=== PATIENT | male | born 1940 | race Caucasian/White ===

== ENCOUNTER 2016-11-08 14:03 | Emergency (ER) | payer MEDICARE, OTHER ==
[2016-11-08] MEDS ORDERED: SODIUM CHLORIDE 0.9% 500 ML IV STA (14:54)
[2016-11-08] MEDS ORDERED: SODIUM CHLORIDE 0.9% 1,000 ML IV STA (14:54)
[2016-11-08] MEDS ORDERED: PANTOPRAZOLE 40 MG/10 ML VIAL IVP STA (14:54)
[2016-11-08 15:24] VITALS: PULSE 69
[2016-11-08 15:27] LABS: Basophils % (A) 1 %; CH 30.2; CHCM 33.5; Eosinophils # (A) 0.4 k/uL (0-0.7); Eosinophils % (A) 5 %; HCT 32.8 % (39.0-53.0); HDW 3.06; HGB 11.1 gm/dL (13.0-17.5); Luc # (Auto) 0.19; Luc % (Auto) 3; Lymphocytes # (A) 1.3 k/uL (1.0-4.8); Lymphocytes % (A) 20 %; MCH 30.8 pg (25.0-35.0); MCHC 33.9 g/dL (31.0-37.0); MCV 90.7 fL (80.0-100.0); Mean Platelet Volume 6.4; Monocytes # (A) 0.6 k/uL (0-1.0); Monocytes % (A) 8 %; Neutrophils # (A) 4.3 k/uL (1.3-7.7); Neutrophils % (A) 64 %; RBC 3.62 m/uL (4.30-5.90); WBC 6.8 k/uL (3.8-10.6)
--- NOTE | 2016-11-08 15:31 | ED ---
General Adult HPI - General Chief complaint: Recheck/Abnormal Lab/Rx Stated complaint: [facility] sent because of blood work Time Seen by Provider: 11/08/16 14:43 Source: patient Mode of arrival: wheelchair Limitations: no limitations - History of Present Illness Initial comments: This 76-year-old white male since complaining of feeling dizzy and lightheaded. He states that this is been going on for the past couple of weeks. He was seen at the [facility] clinic one week ago and had blood work drawn. They called him today and told him to come to the emergency department because his hemoglobin was low. His hemoglobin apparently was 10.9. He states that he feels better today and it seems to be intermittent. It seemed worse 2 days ago. It seems to occur more with standing. He's felt presyncopal at times but did not have a syncopal episode. He denies any gross blood in his stools but has had dark stools upon wiping for the last 1 month. He was diagnosed with a right leg DVT approximately one month ago and was placed on L quests at that time. He also takes Plavix daily. He denies any chest pain or shortness of breath. He denies any other complaints or modifying factors. He states that he did have some left knee surgery in June 2016. He does have a history of coronary artery disease and previous CABG. No other complaints or modifying factors. - Related Data Home Medications Medication Instructions Recorded Confirmed Apixaban [Eliquis] 5 mg PO BID 11/08/16 11/08/16 Artificial Tears-Hypromellose 1 drops BOTH EYES QID PRN 11/08/16 11/08/16 [Artificial Tear Drops] Aspirin [Adult Low Dose Aspirin EC] 81 mg PO DAILY 11/08/16 11/08/16 Clopidogrel [Plavix] 75 mg PO DAILY 11/08/16 11/08/16 Digoxin [Lanoxin] 125 mcg PO DAILY 11/08/16 11/08/16 Furosemide [Lasix] 40 mg PO HS 11/08/16 11/08/16 Furosemide [Lasix] 80 mg PO QAM 11/08/16 11/08/16 Gabapentin [Neurontin] 300 mg PO TID 11/08/16 11/08/16 HYDROcodone/APAP 7.5-325MG [[place] 1 tab PO BID PRN 11/08/16 11/08/16 7.5-325] Isosorbide Dinitrate [Isordil] 80 mg PO BID 11/08/16 11/08/16 Losartan [Cozaar] 50 mg PO BID 11/08/16 11/08/16 Metoprolol Tartrate [Lopressor] 25 mg PO TID 11/08/16 11/08/16 Nitroglycerin Sl Tabs [Nitrostat] 0.4 mg SUBLINGUAL Q5M PRN 11/08/16 11/08/16 PARoxetine HCL [Paxil] 40 mg PO DAILY 11/08/16 11/08/16 Pantoprazole [Protonix] 40 mg PO AC-BRKFST 11/08/16 11/08/16 Rosuvastatin Calcium [Crestor] 40 mg PO HS 11/08/16 11/08/16 amLODIPine [Norvasc] 2.5 mg PO BID 11/08/16 11/08/16 Allergies Allergy/AdvReac Type Severity Reaction Status Date / Time iodine Allergy Rash/Hives Verified 11/08/16 15:28 lisinopril Allergy Unknown Verified 11/08/16 15:28 Penicillins Allergy Rash/Hives Verified 11/08/16 15:28 Review of Systems ROS Statement: Those systems with pertinent positive or pertinent negative responses have been documented in the HPI. ROS Other: All systems not noted in ROS Statement are negative. Past Medical History Past Medical History: Coronary Artery Disease (CAD), Hyperlipidemia, Hypertension History of Any Multi-Drug Resistant Organisms: None Reported Past Surgical History: Coronary Bypass/CABG, Heart Catheterization, Heart Catheterization With Stent Past Psychological History: No Psychological Hx Reported Smoking Status: Never smoker Past Alcohol Use History: None Reported Past Drug Use History: None Reported General Exam - General Exam Comments Initial Comments: GENERAL: The patient is well nourished and well hydrated. VITAL SIGNS: Heart rate, blood pressure, respiratory rate reviewed as recorded in nurse's notes. EYES: Pupils are round and reactive. Extraocular movements are intact. No conjunctival / lid redness or swelling. ENT: No external evidence of injury, swelling, or ecchymosis. Airway is patent. Throat is clear. NECK: Nontender. No swelling or evidence of injury. No subcutaneous emphysema. Trachea is midline. No thyroid mass. HEART: Regular rate and rhythm. Good peripheral pulses. LUNGS/CHEST: Breath sounds clear and equal bilaterally. No rales, rhonchi, or wheezes. No ecchymosis, subcutaneous emphysema, or tenderness. ABDOMEN: Abdomen soft without tenderness. No palpable masses or organomegaly. No peritoneal signs. No abdominal wall swelling or ecchymosis. EXTREMITIES: No extremity tenderness. Normal muscle tone and function. No thoracolumbar tenderness. NEUROLOGIC: Sensation is grossly intact. Cranial nerve exam reveals face is symmetrical, tongue is midline, speech is clear. SKIN: No abrasions or ecchymosis is noted. No induration or masses noted. PSYCHIATRIC: Alert and oriented. Appropriate behavior and judgment. Rectal exam: No gross blood identified. No black stool noted. Good rectal tone. Limitations: no limitations Course Vital Signs 11/08/16 11/08/16 11/08/16 14:32 15:22 16:04 Temperature 97.0 F L Pulse Rate 70 69 Pulse Rate [ 69 Sitting Shotblaster] Pulse Rate [ 74 Standing Shotblaster ] Pulse Rate [ 69 Supine Shotblaster] Respiratory 20 18 Rate Blood Pressure 117/59 118/62 Blood Pressure 119/61 [Right Arm Sitting] Blood Pressure 115/61 [Right Arm Standing] Blood Pressure 114/57 [Right Arm Supine] O2 Sat by Pulse 96 93 L Oximetry Medical Decision Making - Medical Decision Making The patient was seen and examined. All diagnostics were reviewed. An EKG shows an atrial paced rhythm with prolonged AV conduction with a heart rate of 70. There is no acute ST-T wave changes noted. The WV interval is 246, QRS duration is 110, and QTC intervals 419. The patient's hemoglobin is slightly low at 11.1 but stable as compared to previous blood work done one week ago that had a hemoglobin of 10.9. These results were reviewed from the [facility] fax. The remainder of laboratory is all essentially within normal limits. While it is possible that the patient had a GI bleed, it does not appear as though there is current evidence of 1. His hemoglobin is slightly low and this anemia could cause some of his symptomatology. Nevertheless, he appears quite stable for further outpatient workup. His orthostatic vital signs are normal here. His Hemoccult is negative. He does relate a lifelong history of anemia. It is felt as though he could follow up with his primary doctor and would also benefit from following up with a GI specialist. He does have a GI specialist to follow up with. 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 Return parameters are discussed. - Lab Data Result diagrams: 11/08/16 15:11 11/08/16 15:11 Lab Results 11/08/16 11/08/16 11/08/16 Range/Units 15:11 15:11 15:11 WBC 6.8 (3.8-10.6) k/uL RBC 3.62 L (4.30-5.90) m/uL Hgb 11.1 L (13.0-17.5) gm/dL Hct 32.8 L (39.0-53.0) % MCV 90.7 (80.0-100.0) fL MCH 30.8 (25.0-35.0) pg MCHC 33.9 (31.0-37.0) g/dL RDW 15.0 (11.5-15.5) % Plt Count 187 (150-450) k/uL Neutrophils % 64 % Lymphocytes % 20 % Monocytes % 8 % Eosinophils % 5 % Basophils % 1 % Neutrophils # 4.3 (1.3-7.7) k/uL Lymphocytes # 1.3 (1.0-4.8) k/uL Monocytes # 0.6 (0-1.0) k/uL Eosinophils # 0.4 (0-0.7) k/uL Basophils # 0.0 (0-0.2) k/uL PT 10.4 (9.0-12.0) sec INR 1.0 (<1.1) APTT 22.0 (22.0-30.0) sec Sodium 141 (137-145) mmol/L Potassium 4.0 (3.5-5.1) mmol/L Chloride 103 (98-107) mmol/L Carbon Dioxide 27 (22-30) mmol/L Anion Gap 11 mmol/L BUN 20 (9-20) mg/dL Creatinine 1.14 (0.66-1.25) mg/dL Est GFR (MDRD) Af Amer >60 (>60 ml/min/1.73 sqM) Est GFR (MDRD) Non-Af >60 (>60 ml/min/1.73 sqM) Glucose 116 H (74-99) mg/dL Calcium 9.0 (8.4-10.2) mg/dL Total Bilirubin 0.6 (0.2-1.3) mg/dL AST 21 (17-59) U/L ALT 21 (21-72) U/L Alkaline Phosphatase 67 (38-126) U/L Total Protein 6.8 (6.3-8.2) g/dL Albumin 4.2 (3.5-5.0) g/dL Stool Occult Blood (Negative) 11/08/16 Range/Units 15:11 WBC (3.8-10.6) k/uL RBC (4.30-5.90) m/uL Hgb (13.0-17.5) gm/dL Hct (39.0-53.0) % MCV (80.0-100.0) fL MCH (25.0-35.0) pg MCHC (31.0-37.0) g/dL RDW (11.5-15.5) % Plt Count (150-450) k/uL Neutrophils % % Lymphocytes % % Monocytes % % Eosinophils % % Basophils % % Neutrophils # (1.3-7.7) k/uL Lymphocytes # (1.0-4.8) k/uL Monocytes # (0-1.0) k/uL Eosinophils # (0-0.7) k/uL Basophils # (0-0.2) k/uL PT (9.0-12.0) sec INR (<1.1) APTT (22.0-30.0) sec Sodium (137-145) mmol/L Potassium (3.5-5.1) mmol/L Chloride (98-107) mmol/L Carbon Dioxide (22-30) mmol/L Anion Gap mmol/L BUN (9-20) mg/dL Creatinine (0.66-1.25) mg/dL Est GFR (MDRD) Af Amer (>60 ml/min/1.73 sqM) Est GFR (MDRD) Non-Af (>60 ml/min/1.73 sqM) Glucose (74-99) mg/dL Calcium (8.4-10.2) mg/dL Total Bilirubin (0.2-1.3) mg/dL AST (17-59) U/L ALT (21-72) U/L Alkaline Phosphatase (38-126) U/L Total Protein (6.3-8.2) g/dL Albumin (3.5-5.0) g/dL Stool Occult Blood Negative (Negative) Disposition Clinical Impression: Anemia, Dizziness Disposition: HOME SELF-CARE Condition: Good Instructions: Anemia (ED), Dizziness (ED) Referrals: Baldomero Zuniga DO [Primary Care Provider] - 1-2 days Time of Disposition: 16:33
[2016-11-08 15:37] LABS: Prothrombin Time 10.4 sec (9.0-12.0)
[2016-11-08 15:39] LABS: ALT 21 U/L (21-72); AST 21 U/L (17-59); Alkaline Phosphatase 67 U/L (38-126); Anion Gap 11 mmol/L; Blood Urea Nitrogen 20 mg/dL (9-20); Carbon Dioxide 27 mmol/L (22-30); Chloride 103 mmol/L (98-107); Glucose 116 mg/dL (74-99); Non-African American GFR(MDRD) >60 (>60 ml/min/1.73 sqM); Sodium 141 mmol/L (137-145); Total Bilirubin 0.6 mg/dL (0.2-1.3); Total Protein 6.8 g/dL (6.3-8.2)
[2016-11-08 17:01] VITALS: BP 123/65; RESP 16; TEMP 98
== END 2016-11-08 17:05 | disposition home or self-care (01) ==
LOC: EC 14:03
DX: D64.9 Anemia, unspecified (principal); I10 Essential (primary) hypertension; E78.5 Hyperlipidemia, unspecified; I25.10 Atherosclerotic heart disease of native coronary artery without angina pectoris; Z86.718 Personal history of other venous thrombosis and embolism; Z95.1 Presence of aortocoronary bypass graft; Z95.5 Presence of coronary angioplasty implant and graft; Z91.048 Other nonmedicinal substance allergy status; Z88.0 Allergy status to penicillin; Z88.8 Allergy status to other drugs, medicaments and biological substances; Z79.01 Long term (current) use of anticoagulants; Z79.02 Long term (current) use of antithrombotics/antiplatelets; Z79.82 Long term (current) use of aspirin; Z79.899 Other long term (current) drug therapy
CPT/HCPCS: 99284; 96374; 96361 ×2; 36415; 93005; 80053; 85025; 85610; 85730; 82272; C9113

== ENCOUNTER → 2017-02-22 | Outpatient (CLI) | payer MEDICARE ==
--- NOTE | 2017-02-22 11:20 | MM ---
Reason for exam: clinical finding. Last mammogram was performed 14 years and 10 months ago. Physical Findings: Nurse Summary: 1.5cm nodule in the left breast at nipple (nurse dw). MG Diagnostic Mammo LT w CAD CC and MLO view(s) were taken of the left breast. Finding: There is a 0.2 mm oval mass in the 11 o'clock position of the left breast. These results were verbally communicated with the patient and result sheet given to the patient on 02/22/17. ASSESSMENT: Incomplete: need additional imaging evaluation, BI-RAD 0 RECOMMENDATION: Ultrasound of the left breast.
--- NOTE | 2017-02-22 11:23 | USB ---
Reason for exam: additional evaluation requested from abnormal screening. US Breast LT Left breast ultrasound demonstrates a 21 x 11 x 33mm solid, hypoechoic lesion at the retroareolar position, gynecomastia and a 6 x 3 x 5mm oval, hyperechoic lesion at 1-2 o'clock, questionable lipoma. These results were verbally communicated with the patient and result sheet given to the patient on 02/22/17. ASSESSMENT: Probably benign, BI-RAD 3 RECOMMENDATION: Surgical consultation of the left breast. Called Dr. Zuniga with mammographic findings and has scheduled an appointment for the patient for 03/01/17 at 10:[address] Longoria. PRELIMINARY REPORT CALLED AND FAXED TO DR. LONGORIA ON 02/22/17 /TP.
== END | disposition home or self-care (01) ==
LOC: RADMAMWWP 07:11
PROVIDERS: ATTEND Family Medicine
DX: N63 Unspecified lump in breast (principal)
CPT/HCPCS: 76641; G0206

== ENCOUNTER → 2017-06-27 | Outpatient (CLI) | payer MEDICARE ==
--- NOTE | 2017-06-27 09:57 | US ---
EXAMINATION TYPE: US scrotum with doppler. DATE OF EXAM: 06/27/2017 COMPARISON: US 2011 CLINICAL HISTORY: 76-year-old male N50.8 Scrotal swelling. Intermittent right testicular swelling x 1 year, occasional left testicular pain TECHNIQUE: Grayscale and color Doppler Duplex imaging performed of the scrotum. FINDINGS: EXAM MEASUREMENTS: TESTICLES: Right Testicle: 4.5 x 3.0 x 2.7 cm for a volume of 18.8 mL with a tiny 4 mm cyst. Left Testicle: 3.2 x 2.2 x 2.7 cm for a volume of 9.8 mL with a tiny 4 mm cyst medially. While the right testicle measures larger, both show normal homogeneous echotexture and satisfactory a rterial and venous flow. EPIDIDYMIS HEAD: Right Epididymis: 1.0 x 1.5 x 1.7 cm Left Epididymis: 1.1 x 1.3 x 1.6 cm with a 1.1 cm cyst or spermatocele There is a large right and moderate-sized left hydroceles measuring up to 8 cm on the right and 5 cm on the left. Some minimal internal debris is present. No varicocele seen. IMPRESSION: 1. No sonographic evidence for testicular torsion. 2. The right testicle is relatively larger than the left but shows no evidence for mass and has max l echotexture. 3. Large right and moderate-sized left hydroceles with some minimal internal debris.
== END ==
LOC: RADUSWWP 07:01
PROVIDERS: ATTEND Urology
DX: N43.3 Hydrocele, unspecified (principal)
CPT/HCPCS: 76870; 93975

== ENCOUNTER → 2017-06-29 | Day surgery (SDC) | payer MEDICARE | LOC: RADUSWWP 10:30 | PROVIDERS: ATTEND Surgery | DX: R92.8 Other abnormal and inconclusive findings on diagnostic imaging of breast (principal); Z53.9 Procedure and treatment not carried out, unspecified reason ==

== ENCOUNTER 2017-08-11 10:30 | Emergency (ER) | payer OTHER, MEDICARE ==
[2017-08-11] MEDS ORDERED: HYDROmorphone 1 MG/ML 1 ML SYRINGE IM STA (10:59)
--- NOTE | 2017-08-11 11:03 | ED ---
Extremity Problem HPI - General Chief complaint: Extremity Problem,Nontraumatic Stated complaint: Left leg pain Time Seen by Provider: 08/11/17 10:47 Source: patient Mode of arrival: ambulatory Limitations: physical limitation - History of Present Illness Initial comments: This 76-year-old white male presents with a complaint of some left hip and femur pain. He states that the pain started yesterday. It is primarily into his left groin, left hip, and left femur region. He denies any actual injury or overuse. The last time he had this was 30 years ago. He did try some Lexapro as well as some Colman with limited relief. He has been able to ambulate but states that it is fairly difficult. He rates the pain at approximately 8 out of 10. He does complain of some numbness going down his left leg to just underneath his knee. He denies any back pain. No other complaints or modifying factors. - Related Data Home Medications Medication Instructions Recorded Confirmed Artificial Tears-Hypromellose 1 drops BOTH EYES QID PRN 11/08/16 08/11/17 [Artificial Tear Drops] Aspirin [Adult Low Dose Aspirin EC] 81 mg PO DAILY 11/08/16 08/11/17 Clopidogrel [Plavix] 75 mg PO DAILY 11/08/16 08/11/17 Digoxin [Lanoxin] 125 mcg PO DAILY 11/08/16 08/11/17 Furosemide [Lasix] 40 mg PO HS 11/08/16 08/11/17 Furosemide [Lasix] 80 mg PO QAM 11/08/16 08/11/17 Gabapentin [Neurontin] 300 mg PO TID 11/08/16 08/11/17 Isosorbide Dinitrate [Isordil] 80 mg PO BID 11/08/16 08/11/17 Metoprolol Tartrate [Lopressor] 25 mg PO TID 11/08/16 08/11/17 Nitroglycerin Sl Tabs [Nitrostat] 0.4 mg SUBLINGUAL Q5M PRN 11/08/16 08/11/17 PARoxetine HCL [Paxil] 40 mg PO DAILY 11/08/16 08/11/17 Pantoprazole [Protonix] 40 mg PO AC-BRKFST 11/08/16 08/11/17 Rosuvastatin Calcium [Crestor] 40 mg PO HS 11/08/16 08/11/17 Apixaban [Eliquis] 2.5 mg PO BID 08/11/17 08/11/17 Metolazone [Zaroxolyn] 2.5 mg PO DAILY PRN 08/11/17 08/11/17 Potassium Chloride [Klor-Con 20] 20 meq PO DAILY 08/11/17 08/11/17 Sacubitril/Valsartan [Entresto 24 1 tab PO DAILY 08/11/17 08/11/17 mg-26 mg Tablet] Previous Rx's Medication Instructions Recorded Hydrocodone/Acetaminophen [Colman 2 each PO Q4HR PRN #30 tab 08/11/17 5-325] predniSONE 20 mg PO BID #10 tab 08/11/17 Allergies Allergy/AdvReac Type Severity Reaction Status Date / Time iodine Allergy Rash/Hives Verified 08/11/17 11:21 lisinopril Allergy Unknown Verified 08/11/17 11:21 Penicillins Allergy Rash/Hives Verified 08/11/17 11:21 Review of Systems ROS Statement: Those systems with pertinent positive or pertinent negative responses have been documented in the HPI. ROS Other: All systems not noted in ROS Statement are negative. Past Medical History Past Medical History: Coronary Artery Disease (CAD), Hyperlipidemia, Hypertension, Sleep Apnea/CPAP/BIPAP History of Any Multi-Drug Resistant Organisms: None Reported Past Surgical History: Appendectomy, Coronary Bypass/CABG, Heart Catheterization , Joint Replacement, Orthopedic Surgery Additional Past Surgical History / Comment(s): knee Past Anesthesia/Blood Transfusion Reactions: No Reported Reaction Past Psychological History: No Psychological Hx Reported Smoking Status: Never smoker Past Alcohol Use History: None Reported Past Drug Use History: None Reported General Exam Limitations: physical limitation General appearance: alert, other (Mild to moderate distress.) Head exam: Present: atraumatic, normocephalic Neck exam: Present: normal inspection Extremities exam: Present: normal inspection, full ROM, tenderness (There is tenderness noted into the left groin as well as the left hip and left anterior femur.). Absent: pedal edema, joint swelling, calf tenderness Back exam: Present: normal inspection, full ROM. Absent: tenderness Neurological exam: Present: alert, oriented X3. Absent: motor sensory deficit Psychiatric exam: Present: normal affect, normal mood Skin exam: Present: intact. Absent: rash Course Vital Signs 08/11/17 10:43 Temperature 97.0 F L Pulse Rate 64 Respiratory 18 Rate Blood Pressure 99/64 O2 Sat by Pulse 95 Oximetry Medical Decision Making - Medical Decision Making The patient was seen and examined. All diagnostics were reviewed. He was given 1 mg of Dilaudid IM. The x-ray of the left hip, left femur, and pelvis does not show any evidence of fracture but it does show significant arthritis of the left hip/acetabular joint. It is felt as though his pain is coming from his left hip joint. It is felt as though he would benefit from follow-up with an orthopedic surgeon in regard to his left hip. He has seen Dr. Chamberlain in the past and would like to follow-up with him. He is only been taking 1 Colman had a time and this is of the 5/325 strength. Is felt as though he benefit from taking 2 at a time to help control his pain. It is also felt as though he benefit from some steroid medication. He is feeling much improved after the Dilaudid IM injection on recheck. It is felt as though he is stable for discharge and leaves in no significant distress. Disposition Clinical Impression: Left hip pain, Arthritis of left hip Disposition: HOME SELF-CARE Condition: Good Prescriptions: Hydrocodone/Acetaminophen [Colman 5-325] 2 each PO Q4HR PRN #30 tab PRN Reason: Pain predniSONE 20 mg PO BID #10 tab Referrals: Macarena Gallegos, SARAN [REFERRING] - 1-2 days Baldomero Christianson DO [Doctor of Osteopathic Medicine] - As Soon As Possible Time of Disposition: 12:39
--- NOTE | 2017-08-11 12:20 | XR ---
EXAMINATION TYPE: XR femur LT, XR pelvis AP view DATE OF EXAM: 08/11/2017 CLINICAL HISTORY: Left pelvic and femur pain TECHNIQUE: Two views of the left femur are obtained. 12/10/2014 COMPARISON: None FINDINGS: There is no acute fracture or dislocation seen in the left femur. The left hip and knee j oints appear aligned. Moderate left femoral acetabular arthropathy is displayed as acetabular roof s clerosis and joint space narrowing. Protuberant cortical irregularity of the lateral proximal femur i s stable from 2014 and likely represents an enthesophyte or less likely osteochondroma. Surgical stap les are seen in the left inguinal region and medial femur. The overlying soft tissue appears unremark able. There is partial visualization of a left knee arthroplasty. There is no acute fracture/dislocation evident in the pelvis. The hip and sacroiliac joints appear s ymmetric and unremarkable. The overlying soft tissue appears unremarkable. Similarly to the left mod erate femoral acetabular arthropathy is seen in the right this patient is joint space narrowing and a cetabular roof sclerosis. IMPRESSION: 1. There is no acute fracture or dislocation in the left femur. 2. There is no acute fracture or dislocation in the pelvis. 3. Moderate femoral acetabular arthropathy.
[2017-08-11] MEDS ORDERED: predniSONE 20 MG TAB PO STA (12:29)
[2017-08-11 16:35] VITALS: BP 112/61; PULSE 71; RESP 12; TEMP 97
== END 2017-08-11 13:26 | disposition home or self-care (01) ==
LOC: EC 10:30
DX: M16.12 Unilateral primary osteoarthritis, left hip (principal); I25.10 Atherosclerotic heart disease of native coronary artery without angina pectoris; E78.5 Hyperlipidemia, unspecified; I10 Essential (primary) hypertension; Z91.048 Other nonmedicinal substance allergy status; Z88.0 Allergy status to penicillin; Z88.8 Allergy status to other drugs, medicaments and biological substances; Z79.01 Long term (current) use of anticoagulants; Z79.02 Long term (current) use of antithrombotics/antiplatelets; Z79.899 Other long term (current) drug therapy
CPT/HCPCS: 72170; 73552; 99283; 96372; J1170; J7512

== ENCOUNTER 2017-08-19 08:52 | Emergency (ER) | payer OTHER, MEDICARE ==
[2017-08-19] MEDS ORDERED: HYDROmorphone 1 MG/ML 1 ML SYRINGE IM STA ×2 (09:07→11:51)
--- NOTE | 2017-08-19 09:21 | ED ---
Back Pain HPI - General Chief Complaint: Back Pain/Injury Stated Complaint: Back pain Time Seen by Provider: 08/19/17 08:58 Source: patient, RN notes reviewed Mode of arrival: ambulatory Limitations: physical limitation - History of Present Illness Initial Comments: This a 76-year-old male presents emergency Department with chief complaint of back pain, left leg pain. Patient states he was seen here 7 days ago for similar symptoms. Patient states that he had x-rays of his left hip and left femur and he was told that is most likely pinched nerve. Patient follow-up with Dr[facility] who evaluated him and felt that it was more likely is back and referred into his partner. He states that he has a scheduled appointment but states that his pain is uncontrolled. He states symptoms are getting worse he developed sharp stabbing pain at the distal leg portion and complaint of upper thigh pain and pain into his scrotum. Patient denies any associated paresthesias in that region patient denies bowel incontinence or urinary retention. Patient states that his pain medications were increased by Dr. Christianson though they're not helping. Patient denies any trauma denies abdominal pain including nausea, vomiting diarrhea constipation. He states movement symptoms worse there is essentially nothing makes it feel better at this time. - Related Data Home Medications Medication Instructions Recorded Confirmed Artificial Tears-Hypromellose 1 drops BOTH EYES QID PRN 11/08/16 08/19/17 [Artificial Tear Drops] Aspirin [Adult Low Dose Aspirin EC] 81 mg PO DAILY 11/08/16 08/19/17 Clopidogrel [Plavix] 75 mg PO DAILY 11/08/16 08/19/17 Digoxin [Lanoxin] 125 mcg PO DAILY 11/08/16 08/19/17 Furosemide [Lasix] 40 mg PO HS 11/08/16 08/19/17 Furosemide [Lasix] 80 mg PO QAM 11/08/16 08/19/17 Gabapentin [Neurontin] 300 mg PO TID 11/08/16 08/19/17 Isosorbide Dinitrate [Isordil] 80 mg PO BID 11/08/16 08/19/17 Metoprolol Tartrate [Lopressor] 25 mg PO TID 11/08/16 08/19/17 Nitroglycerin Sl Tabs [Nitrostat] 0.4 mg SUBLINGUAL Q5M PRN 11/08/16 08/19/17 PARoxetine HCL [Paxil] 40 mg PO DAILY 11/08/16 08/19/17 Pantoprazole [Protonix] 40 mg PO AC-BRKFST 11/08/16 08/19/17 Rosuvastatin Calcium [Crestor] 40 mg PO HS 11/08/16 08/19/17 Apixaban [Eliquis] 2.5 mg PO BID 08/11/17 08/19/17 Metolazone [Zaroxolyn] 2.5 mg PO DAILY PRN 08/11/17 08/19/17 Potassium Chloride [Klor-Con 20] 20 meq PO DAILY 08/11/17 08/19/17 Sacubitril/Valsartan [Entresto 24 1 tab PO DAILY 08/11/17 08/19/17 mg-26 mg Tablet] HYDROcodone/APAP 7.5-325MG [[place] 1 tab PO Q6HR PRN 08/19/17 08/19/17 7.5-325] Previous Rx's Medication Instructions Recorded predniSONE 20 mg PO BID #10 tab 08/11/17 oxyCODONE-APAP 5-325MG [Percocet 1 tab PO Q6HR PRN #20 tab 08/19/17 5-325 mg] Allergies Allergy/AdvReac Type Severity Reaction Status Date / Time iodine Allergy Rash/Hives Verified 08/19/17 09:11 lisinopril Allergy Unknown Verified 08/19/17 09:11 Penicillins Allergy Rash/Hives Verified 08/19/17 09:11 Review of Systems ROS Statement: Those systems with pertinent positive or pertinent negative responses have been documented in the HPI. ROS Other: All systems not noted in ROS Statement are negative. Past Medical History Past Medical History: Coronary Artery Disease (CAD), Hyperlipidemia, Hypertension, Sleep Apnea/CPAP/BIPAP History of Any Multi-Drug Resistant Organisms: None Reported Past Surgical History: Appendectomy, Coronary Bypass/CABG, Heart Catheterization , Orthopedic Surgery Additional Past Surgical History / Comment(s): knee Past Anesthesia/Blood Transfusion Reactions: No Reported Reaction Past Psychological History: No Psychological Hx Reported Smoking Status: Never smoker Past Alcohol Use History: None Reported Past Drug Use History: None Reported General Exam Limitations: physical limitation General appearance: alert, in no apparent distress Respiratory exam: Present: normal lung sounds bilaterally. Absent: respiratory distress, wheezes, rales, rhonchi, stridor Cardiovascular Exam: Present: regular rate, normal rhythm, normal heart sounds. Absent: systolic murmur, diastolic murmur, rubs, gallop, clicks GI/Abdominal exam: Present: soft, normal bowel sounds. Absent: distended, tenderness, guarding, rebound, rigid Extremities exam: Present: normal inspection (Bilateral lower shunted full range of motion pedal pulses are equal bilaterally there is no discoloration patient reports pain with palpation to his upper thigh region and distal tib- fib region), full ROM, normal capillary refill. Absent: tenderness, pedal edema , joint swelling, calf tenderness Back exam: Present: full ROM (Decreased range of motion secondary to pain ), tenderness (Mild tenderness left low back, paralumbar region), paraspinal tenderness. Absent: CVA tenderness (R), CVA tenderness (L), vertebral tenderness Neurological exam: Present: alert, oriented X3, CN II-XII intact, reflexes normal. Absent: motor sensory deficit Skin exam: Present: warm, dry, intact, normal color. Absent: rash Course Vital Signs 08/19/17 08/19/17 08:56 10:52 Temperature 97.4 F L Pulse Rate 84 62 Respiratory 20 18 Rate Blood Pressure 116/65 112/75 O2 Sat by Pulse 96 97 Oximetry Medical Decision Making - Medical Decision Making 76-year-old male present emergency department for back pain. CT shows extensive degenerative changes and spinal stenosis. Patient has no red flag symptoms or neurological deficits. His complaint is pain at this time and pain is controlled after narcotic pain medications here. Patient states that he did have an appointment in orthopedics in his been referred on. Patient states his appointment next week and return for any worsening symptoms. Disposition Clinical Impression: Lumbar radiculopathy, Degenerative lumbar spinal stenosis Disposition: HOME SELF-CARE Condition: Stable Instructions: Acute Low Back Pain (ED) Additional Instructions: Please return to the Emergency Department if symptoms worsen or any other concerns. Prescriptions: oxyCODONE-APAP 5-325MG [Percocet 5-325 mg] 1 tab PO Q6HR PRN #20 tab PRN Reason: Pain Referrals: Baldomero Zuniga DO [Primary Care Provider] - 1-2 days Time of Disposition: 12:32
[2017-08-19] MEDS ORDERED: HYDROcodone/APAP 10-325MG 1 EACH TAB PO ONE (09:55)
--- NOTE | 2017-08-19 10:28 | CT ---
EXAMINATION TYPE: CT lumbar spine wo con DATE OF EXAM: 08/19/2017 COMPARISON: Plain film 12/10/2014 HISTORY: Patient complains of low back pain with radiation to the lef t leg. CT DLP: 1006.2 mGycm Automated exposure control for dose reduction was used. An unenhanced CT of the lumbar spine was performed. Bone and soft tissue window settings are submitt ed as well as coronal and sagittal reconstructions. FINDINGS: There is multilevel spondylosis present. Lumbar vertebral bodies show stable height, alignment, bone mineralization. Loss of disc height again noted at L5-S1, there is associated vacuum phenomenon. L1-L2: Posterior extension of endplate disc complex is eccentric towards right causing anterolateral mass effect on the thecal sac. No significant foraminal encroachment or central stenosis. L2-L3: Circumferential extension of endplate disc complex causes mild anterior mass effect on the the patt sac. Lateral extension encroaches mildly on the foramina bilaterally. L3-L4: Circumferential posterior extension of endplate disc complex causes anterior mass effect on th e thecal sac, mild to moderate central canal stenosis, circumferential extension of endplate disc com plex encroaches upon the foramina. Mild anterior wedging the anterior aspect of L3 vertebral body not ed. L4-L5: Retrolisthesis grade 1 L4-5. Posterior extension of endplate disc complex results in moderate central canal stenosis, circumferential extension of endplate disc complex results in foraminal encro achment bilaterally. There is facet arthropathy change. L5-S1: There is marked facet arthropathy with encroachment on the lateral recesses, circumferential e xtension of endplate disc complex and associated with facet arthropathy results in foraminal encroach ment greater on the left than on the right, moderate to severe spinal stenosis suspected. Infrarenal abdominal aorta measures approximately 3 cm. IMPRESSION: Degenerative disc disease, spinal stenosis, facet arthropathy as described..
--- NOTE | 2017-08-19 10:31 | US ---
EXAMINATION TYPE: US venous doppler duplex LE LT DATE OF EXAM: 08/19/2017 10:17 AM COMPARISON: CLINICAL HISTORY: Pain. Left leg pain. On blood thinners. Hx of DVT in right leg. SIDE PERFORMED: Left TECHNIQUE: The lower extremity deep venous system is examined utilizing real time linear array sonog barbara with graded compression, doppler sonography and color-flow sonography. VESSELS IMAGED: External Iliac Vein (EIV) Common Femoral Vein Deep Femoral Vein Greater Saphenous Vein * Femoral Vein Popliteal Vein Small Saphenous Vein * Proximal Calf Veins (* superficial vessels) Grayscale, color doppler, spectral doppler imaging performed of the deep veins of the lower extremiti es. There is normal flow, compressibility, vascular waveforms. Left Leg: Negative for DVT IMPRESSION: No sonographic evidence of deep venous thrombosis within the left lower extremity.
[2017-08-19] MEDS ORDERED: HYDROmorphone 2 MG/ML 1 ML SYRINGE IVP STA (11:52)
[2017-08-19 12:53] VITALS: BP 100/67; PULSE 70; RESP 16; TEMP 98.3
== END 2017-08-19 12:57 | disposition home or self-care (01) ==
LOC: EC 08:52
DX: M48.061 Spinal stenosis, lumbar region without neurogenic claudication (principal); M54.16 Radiculopathy, lumbar region; I25.10 Atherosclerotic heart disease of native coronary artery without angina pectoris; E78.5 Hyperlipidemia, unspecified; I10 Essential (primary) hypertension; G47.30 Sleep apnea, unspecified; Z99.89 Dependence on other enabling machines and devices; Z95.1 Presence of aortocoronary bypass graft; Z95.5 Presence of coronary angioplasty implant and graft; Z79.82 Long term (current) use of aspirin; Z79.01 Long term (current) use of anticoagulants; Z79.899 Other long term (current) drug therapy; Z88.8 Allergy status to other drugs, medicaments and biological substances; Z88.0 Allergy status to penicillin
CPT/HCPCS: 93971; 72131; 99284; 96374; 96372 ×2; J1170 ×2

== ENCOUNTER → 2017-10-05 | Outpatient (CLI) | payer OTHER ==
--- NOTE | 2017-10-05 09:09 | US ---
EXAMINATION TYPE: US thyroid st tissue head/neck DATE OF EXAM: 10/05/2017 COMPARISON: NONE CLINICAL HISTORY: L04.9 Cervical Mass/Acute Lymphadenitis. Patient felt large palp 2 months ago, has since gone down in size, area of concern is toward the left hairline behind ear 2 normal appearing lymph nodes seen, largest at 9mm and other was 7mm, with normal fatty hilum and vascular compenent IMPRESSION: No significant abnormality. Correlate clinically.
== END | disposition home or self-care (01) ==
LOC: RADUSWWP 08:19
DX: L04.0 Acute lymphadenitis of face, head and neck (principal)
CPT/HCPCS: 76536

== ENCOUNTER → 2017-10-21 | Outpatient (CLI) | payer OTHER ==
--- NOTE | 2017-10-24 08:37 | MM ---
Reason for exam: follow-up at short interval from prior study. Last mammogram was performed 8 months ago. History: Patient has history of other cancer at age 46. Physical Findings: Nurse did not find any significant physical abnormalities on exam. MG Diagnostic Mammo LT w CAD CC and MLO view(s) were taken of the left breast. Prior study comparison: February 22, 2017, left breast MG diagnostic mammo LT w CAD. April 25, 2002, bilateral diagnostic mammogram. Stable flame shaped retroareolar density left breast consistent with gynecomastia. These results were verbally communicated with the patient and result sheet given to the patient on 10/21/17. ASSESSMENT: Incomplete: need additional imaging evaluation, BI-RAD 0 RECOMMENDATION: Ultrasound of the left breast. Manage patient on a clinical basis.
--- NOTE | 2017-10-24 08:41 | USB ---
Reason for exam: additional evaluation requested from abnormal screening. History: Patient has history of other cancer at age 46. US Breast LT Left breast ultrasound includes all four quadrants, the retroareolar region and axilla. Finding demonstrates no cystic or solid lesion seen. These results were verbally communicated with the patient and result sheet given to the patient on 10/21/17. ASSESSMENT: Negative, BI-RAD 1 RECOMMENDATION: Clinical management of the left breast. Manage patient on a clinical basis.
== END | disposition home or self-care (01) ==
LOC: RADMAMWWP 12:53
DX: N64.59 Other signs and symptoms in breast (principal); R92.8 Other abnormal and inconclusive findings on diagnostic imaging of breast
CPT/HCPCS: 77065

== ENCOUNTER → 2017-11-07 | Outpatient (CLI) | payer OTHER ==
--- NOTE | 2017-11-07 08:52 | US ---
EXAMINATION TYPE: US abdomen complete DATE OF EXAM: 11/07/2017 COMPARISON: NONE CLINICAL HISTORY: 77-year-old male right lower abdominal pain R10.30 right. Intermittent RLQ pain for 2 years Technique: Multiple sonographic images of the abdomen are obtained. FINDINGS: Personnel Administrator notes: Technical limitations due to overlying bowel Liver Length: 13.1 cm Gallbladder Wall: 0.3 cm CBD: 0.4 cm Spleen: 12.2 cm Right Kidney: 9.6 x 5.1 x 4.6 cm Left Kidney: 10.8 x 4.8 x 4.8 cm Pancreas: Obscured by bowel gas Liver: Normal size. No focal lesion seen of the visualized portions. Overall homogeneous appearance. Gallbladder: Junctional fold is present. No abnormal gallbladder distention, wall thickening, perich olecystic fluid, or shadowing calculi. Evidence for sonographic García's sign: no CBD: visualized portion appear wnl Spleen: wnl Right Kidney: Lobulated contour with a shadowing 7 mm echogenic focus at the mid pole. No hydronephro sis. Left Kidney: no evidence of hydronephrosis Upper IVC: wnl Abd Aorta: proximal obscured, calcifications noted IMPRESSION: 1. Some technical limitations due to overlying bowel gas. 2. A 7 mm nonobstructive right mid pole renal calculus. 3. Otherwise, no specific abnormality seen.
== END | disposition home or self-care (01) ==
LOC: RADUSWWP 07:00
PROVIDERS: ATTEND Family Medicine
DX: N20.0 Calculus of kidney (principal)
CPT/HCPCS: 76700

== ENCOUNTER → 2018-06-09 | Outpatient (CLI) | payer MEDICARE ==
--- NOTE | 2018-06-09 08:58 | CT ---
EXAMINATION TYPE: CT chest wo con DATE OF EXAM: 06/09/2018 COMPARISON: 05/02/2017 HISTORY: CHF and shortness of breath CT DLP: 462.00 mGycm. Automated Exposure Control for Dose Reduction was Utilized. TECHNIQUE: CT scan of the thorax is performed without IV contrast. FINDINGS: LUNGS: Pleural based pulmonary nodule measures 7 mm on series 4 image 33 in the right lower lobe post erior medially, this appears more conspicuous than on the prior exam of 05/02/2017. Elongated partiall y calcified pleural plaque is seen along the left upper and lower lobes measuring 1.1 cm in greatest thickness. Greatest thickness is unchanged from the prior. No focal consolidation, pleural effusion o r pneumothorax. Minimal pleural parenchymal scarring is seen bilaterally within the lower lobes. The tracheobronchial tree is patent. MEDIASTINUM: Lack of IV contrast is noted to limit evaluation for mediastinal and especially hilar ad enopathy. There are no definitive greater than 1 cm hilar or mediastinal lymph nodes. No cardiomega ly or pericardial effusion is seen. Right-sided cardiac device is present. Post CABG changes the ches t are noted. Heart is mildly enlarged. Ascending thoracic aorta is within normal limits of size measu ring 3.7 cm. OTHER: Nonobstructing right renal calculus measures 3 mm in the midpole. There is a small hiatal odette ia seen. Mild bilateral retroareolar gynecomastia is incidentally seen. Multilevel degenerative taylor es of the spine are present in moderate with stable mild compression deformity of the T12 vertebral b alicia in comparison to the prior. IMPRESSION: 1. No sequela of decompensated congestive heart failure. 2. Stable elongated partially calcified left pleural plaque suggestive of prior asbestos exposure. 3. Slightly more conspicuous 7 mm pleural-based right lower lobe pulmonary nodule cannot the prior. F ollow-up CT would be recommended in 6-12 months given the suspected slight interval growth. 4. Small hiatal hernia.
== END | disposition home or self-care (01) ==
LOC: RADCTMAIN 06:35
PROVIDERS: ATTEND Internal Medicine Cardiovascular Disease
DX: J92.9 Pleural plaque without asbestos (principal); R91.1 Solitary pulmonary nodule; K44.9 Diaphragmatic hernia without obstruction or gangrene; I50.9 Heart failure, unspecified
CPT/HCPCS: 71250

== ENCOUNTER 2018-07-05 10:53 | Observation (INO) | payer OTHER, MEDICARE ==
[2018-07-05] MEDS ORDERED: ASPIRIN 81 MG PO STA (11:29)
[2018-07-05] MEDS ORDERED: NITROGLYCERIN OINT 1 INCH/GM PACKET TOPICAL STA (11:29)
--- NOTE | 2018-07-05 11:39 | ED ---
General Adult HPI - General Chief complaint: Chest Pain Stated complaint: poss blood clot chest Time Seen by Provider: 07/05/18 11:00 Source: patient, RN notes reviewed Mode of arrival: ambulatory Limitations: no limitations - History of Present Illness Initial comments: This is a 77-year-old male with past medical history significant for bypass surgery and multiple stents. Patient also has hypertension and high cholesterol. Patient comes in today because he is been experiencing some intermittent anterior chest pain with some shortness of breath. He went to see his primary medical care doctor and they sent him into the emergency department to rule out a clot. Patient states he is ordered an aspirin products and eliquis. Patient denies any calf pain or leg swelling. Patient denies patient states this type of pain is not typical pain he normally has when he has a heart attack. Patient states normally jaw pain. Patient denies any lightheadedness dizziness or near syncopal episode. Patient denies any recent fever chills or cough. Patient denies any abdominal pain patient denies nausea vomiting diarrhea. - Related Data Home Medications Medication Instructions Recorded Confirmed Artificial Tears-Hypromellose 1 drops BOTH EYES QID PRN 11/08/16 07/05/18 [Artificial Tear Drops] Aspirin [Adult Low Dose Aspirin EC] 81 mg PO DAILY 11/08/16 07/05/18 Clopidogrel [Plavix] 75 mg PO DAILY 11/08/16 07/05/18 Furosemide [Lasix] 40 mg PO HS 11/08/16 07/05/18 Furosemide [Lasix] 80 mg PO QAM 11/08/16 07/05/18 Isosorbide Dinitrate [Isordil] 80 mg PO BID 11/08/16 07/05/18 Nitroglycerin Sl Tabs [Nitrostat] 0.4 mg SUBLINGUAL Q5M PRN 11/08/16 07/05/18 Pantoprazole [Protonix] 40 mg PO AC-BRKFST 11/08/16 07/05/18 Rosuvastatin Calcium [Crestor] 40 mg PO HS 11/08/16 07/05/18 Apixaban [Eliquis] 2.5 mg PO BID 08/11/17 07/05/18 Metolazone [Zaroxolyn] 2.5 mg PO DAILY PRN 08/11/17 07/05/18 Potassium Chloride [Klor-Con 20] 20 meq PO DAILY 08/11/17 07/05/18 Sacubitril/Valsartan [Entresto 24 1 tab PO DAILY 08/11/17 07/05/18 mg-26 mg Tablet] Acetaminophen/Chlorpheniramine 1 tab PO HS 07/05/18 07/05/18 [Coricidin Hbp Cold & Flu Tab] Gabapentin 600 mg PO TID 07/05/18 07/05/18 Metoprolol Tartrate 25 mg PO BID 07/05/18 07/05/18 PARoxetine [Paxil] 20 mg PO DAILY 07/05/18 07/05/18 Allergies Allergy/AdvReac Type Severity Reaction Status Date / Time iodine Allergy Rash/Hives Verified 07/05/18 10:58 lisinopril Allergy Unknown Verified 07/05/18 10:58 Penicillins Allergy Rash/Hives Verified 07/05/18 10:58 hydromorphone [From Dilaudid] AdvReac Hallucinati Verified 07/05/18 12:45 ons Review of Systems ROS Statement: Those systems with pertinent positive or pertinent negative responses have been documented in the HPI. ROS Other: All systems not noted in ROS Statement are negative. Past Medical History Past Medical History: Coronary Artery Disease (CAD), Hyperlipidemia, Hypertension, Sleep Apnea/CPAP/BIPAP History of Any Multi-Drug Resistant Organisms: None Reported Past Surgical History: Appendectomy, Coronary Bypass/CABG, Heart Catheterization , Orthopedic Surgery Additional Past Surgical History / Comment(s): knee Past Anesthesia/Blood Transfusion Reactions: No Reported Reaction Past Psychological History: No Psychological Hx Reported Smoking Status: Never smoker Past Alcohol Use History: None Reported Past Drug Use History: None Reported General Exam - General Exam Comments Initial Comments: GENERAL: Patient is well-developed and well-nourished. Patient is nontoxic and well- hydrated and is in no acute distress. ENT: Neck is soft and supple. No significant lymphadenopathy is noted. Oropharynx is clear. Moist mucous membranes. Neck has full range of motion without eliciting any pain. EYES: The sclera were anicteric and conjunctiva were pink and moist. Extraocular movements were intact and pupils were equal round and reactive to light. Eyelids were unremarkable. PULMONARY: Unlabored respirations. Good breath sounds bilaterally. No audible rales rhonchi or wheezing was noted. CARDIOVASCULAR: There is a regular rate and rhythm without any murmurs gallops or rubs. ABDOMEN: Soft and nontender with normal bowel sounds. No palpable organomegaly was noted. There is no palpable pulsatile mass. SKIN: Skin is clear with no lesions or rashes and otherwise unremarkable. NEUROLOGIC: Patient is alert and oriented x3. Cranial nerves II through XII are grossly intact. Motor and sensory are also intact. Normal speech, volume and content. Symmetrical smile. MUSCULOSKELETAL: Normal extremities with adequate strength and full range of motion. No lower extremity swelling or edema. No calf tenderness. LYMPHATICS: No significant lymphadenopathy is noted PSYCHIATRIC: Normal psychiatric evaluation. Limitations: no limitations Course Vital Signs 07/05/18 07/05/18 10:55 11:45 Temperature 97.6 F Pulse Rate 81 Pulse Rate [ 83 Sitting] Respiratory 20 Rate Blood Pressure 149/83 O2 Sat by Pulse 98 Oximetry Medical Decision Making - Medical Decision Making EKG shows an atrial paced rhythm at 71 bpm DE interval is 250 QRS is 106 QT interval 390 QTC is 423. Patient's EKG shows no ST segment elevation or depression or T wave abnormalities are noted. Chest x-ray showed no acute abnormality. I will begin and discussed all the results with the patient I indicated to him because of his previous significant cardiac history as well as hypertension high cholesterol and the fact that he was having chest pain shortness of breath that I thought he needed to be admitted and I would not be able to discharge him home. Patient stated he understood the risks of this and he was going to leave and try to follow-up with his senior power scheduler today. Patient signed out AMA After the patient was discharged he change his mind and decided to stay. I spoke with Dr. mares he agreed to admit the patient admitted the patient I wrote admitting orders. - Lab Data Result diagrams: 07/05/18 11:42 07/05/18 11:42 Lab Results 07/05/18 07/05/18 07/05/18 Range/Units 11:42 11:42 11:42 WBC 6.1 (3.8-10.6) k/uL RBC 4.20 L (4.30-5.90) m/uL Hgb 12.6 L (13.0-17.5) gm/dL Hct 38.6 L (39.0-53.0) % MCV 91.8 (80.0-100.0) fL MCH 30.1 (25.0-35.0) pg MCHC 32.8 (31.0-37.0) g/dL RDW 14.2 (11.5-15.5) % Plt Count 179 (150-450) k/uL Neutrophils % 59 % Lymphocytes % 23 % Monocytes % 9 % Eosinophils % 6 % Basophils % 1 % Neutrophils # 3.5 (1.3-7.7) k/uL Lymphocytes # 1.4 (1.0-4.8) k/uL Monocytes # 0.5 (0-1.0) k/uL Eosinophils # 0.3 (0-0.7) k/uL Basophils # 0.0 (0-0.2) k/uL PT (9.0-12.0) sec INR (<1.2) APTT (22.0-30.0) sec D-Dimer (<0.60) mg/L FEU Sodium 142 (137-145) mmol/L Potassium 4.6 (3.5-5.1) mmol/L Chloride 106 (98-107) mmol/L Carbon Dioxide 28 (22-30) mmol/L Anion Gap 8 mmol/L BUN 22 H (9-20) mg/dL Creatinine 1.22 (0.66-1.25) mg/dL Est GFR (CKD-EPI)AfAm 67 (>60 ml/min/1.73 sqM) Est GFR (CKD-EPI)NonAf 58 (>60 ml/min/1.73 sqM) Glucose 93 (74-99) mg/dL Calcium 9.2 (8.4-10.2) mg/dL Magnesium 2.2 (1.6-2.3) mg/dL Total Bilirubin 0.6 (0.2-1.3) mg/dL AST 23 (17-59) U/L ALT 26 (21-72) U/L Alkaline Phosphatase 56 (38-126) U/L Total Creatine Kinase 88 (55-170) U/L CK-MB (CK-2) 1.1 (0.0-2.4) ng/mL CK-MB (CK-2) Rel Index 1.3 Troponin I <0.012 (0.000-0.034) ng/mL Total Protein 6.7 (6.3-8.2) g/dL Albumin 4.1 (3.5-5.0) g/dL 07/05/18 Range/Units 11:42 WBC (3.8-10.6) k/uL RBC (4.30-5.90) m/uL Hgb (13.0-17.5) gm/dL Hct (39.0-53.0) % MCV (80.0-100.0) fL MCH (25.0-35.0) pg MCHC (31.0-37.0) g/dL RDW (11.5-15.5) % Plt Count (150-450) k/uL Neutrophils % % Lymphocytes % % Monocytes % % Eosinophils % % Basophils % % Neutrophils # (1.3-7.7) k/uL Lymphocytes # (1.0-4.8) k/uL Monocytes # (0-1.0) k/uL Eosinophils # (0-0.7) k/uL Basophils # (0-0.2) k/uL PT 10.0 (9.0-12.0) sec INR 1.0 (<1.2) APTT 22.6 (22.0-30.0) sec D-Dimer 0.55 (<0.60) mg/L FEU Sodium (137-145) mmol/L Potassium (3.5-5.1) mmol/L Chloride (98-107) mmol/L Carbon Dioxide (22-30) mmol/L Anion Gap mmol/L BUN (9-20) mg/dL Creatinine (0.66-1.25) mg/dL Est GFR (CKD-EPI)AfAm (>60 ml/min/1.73 sqM) Est GFR (CKD-EPI)NonAf (>60 ml/min/1.73 sqM) Glucose (74-99) mg/dL Calcium (8.4-10.2) mg/dL Magnesium (1.6-2.3) mg/dL Total Bilirubin (0.2-1.3) mg/dL AST (17-59) U/L ALT (21-72) U/L Alkaline Phosphatase (38-126) U/L Total Creatine Kinase (55-170) U/L CK-MB (CK-2) (0.0-2.4) ng/mL CK-MB (CK-2) Rel Index Troponin I (0.000-0.034) ng/mL Total Protein (6.3-8.2) g/dL Albumin (3.5-5.0) g/dL Disposition Clinical Impression: Unstable angina pectoris Disposition: Left Against Medical Advice Is patient prescribed a controlled substance at d/c from ED?: No Referrals: [facility],Clinic [Primary Care Provider] - 1-2 days Time of Disposition: 13:27
[2018-07-05 12:27] LABS: Basophils % (A) 1 %; Eosinophils # (A) 0.3 k/uL (0-0.7); Eosinophils % (A) 6 %; HCT 38.6 % (39.0-53.0); HGB 12.6 gm/dL (13.0-17.5); Lymphocytes # (A) 1.4 k/uL (1.0-4.8); Lymphocytes % (A) 23 %; MCH 30.1 pg (25.0-35.0); MCHC 32.8 g/dL (31.0-37.0); MCV 91.8 fL (80.0-100.0); Mean Platelet Volume 6.4; Monocytes # (A) 0.5 k/uL (0-1.0); Monocytes % (A) 9 %; Neutrophils # (A) 3.5 k/uL (1.3-7.7); Neutrophils % (A) 59 %; Platelet Count 179 k/uL (150-450); RDW 14.2 % (11.5-15.5); WBC 6.1 k/uL (3.8-10.6)
[2018-07-05 12:29] LABS: Albumin 4.1 g/dL (3.5-5.0); Calcium 9.2 mg/dL (8.4-10.2); Magnesium 2.2 mg/dL (1.6-2.3); Potassium 4.6 mmol/L (3.5-5.1); Total Bilirubin 0.6 mg/dL (0.2-1.3); Total Protein 6.7 g/dL (6.3-8.2)
--- NOTE | 2018-07-05 12:32 | XR ---
EXAMINATION TYPE: XR chest 2V DATE OF EXAM: 07/05/2018 COMPARISON: 12/07/2011 and 05/02/2017 HISTORY: 77-year-old male with chest pain and shortness of breath TECHNIQUE: PA and lateral views FINDINGS: Right anterior chest wall AICD generator with right atrial and right ventricular leads. Coronary sten t is present. Median sternotomy wires with post-CABG changes. Heart upper limits of normal in size. S trandy areas of atelectasis in the lower lungs. Endplate spondylosis mid and lower thoracic spine. No consolidation or pleural effusion. IMPRESSION: Borderline heart size. Strandy atelectasis in the lower lungs. No definite acute process. As compared to 2011, the patient's right-sided generator device has slipped lower down along the ches t wall. This appearance is unchanged from 05/02/2017.
[2018-07-05 12:39] LABS: D-Dimer 0.55 mg/L FEU (<0.60); Partial Thromboplastin Time 22.6 sec (22.0-30.0)
[2018-07-05 12:58] LABS: Creatine Kinase 88 U/L (55-170)
[2018-07-05 13:10] LABS: Creatine Kinase MB 1.1 ng/mL (0.0-2.4); Troponin I <0.012 ng/mL (0.000-0.034)
[2018-07-05] MEDS ORDERED: NITROGLYCERIN SL TABS 0.4 MG TAB SUBLINGUAL PRN ×2 (14:04→19:09)
[2018-07-05 16:54] VITALS: BMI 34.7
[2018-07-05 18:17] LABS: Creatine Kinase 88 U/L (55-170)
[2018-07-05 18:29] LABS: Troponin I <0.012 ng/mL (0.000-0.034)
[2018-07-05] MEDS ORDERED: ARTIFICIAL TEARS-HYPROMELLOSE DROPS 15 ML BTL BOTH EYES PRN (19:09)
[2018-07-05] MEDS ORDERED: METOLAZONE 2.5 MG TAB PO PRN (19:09)
[2018-07-05] MEDS ORDERED: ACETAMINOPHEN TAB 325 MG TAB PO PRN (19:11)
[2018-07-05] MEDS: NITROGLYCERIN OINT 1 INCH/GM PACKET TOPICAL SCH ×2 (19:52→23:13)
[2018-07-05] MEDS ORDERED: TEMAZEPAM 15 MG CAP PO PRN (19:57)
[2018-07-05] MEDS ORDERED: ALPRAZolam 0.25 MG TAB PO PRN (19:57)
[2018-07-05] MEDS: GABAPENTIN 300 MG CAP PO SCH (20:05)
[2018-07-05] MEDS: METOPROLOL TARTRATE 25 MG TAB PO SCH (20:06)
[2018-07-05] MEDS: APIXABAN 2.5 MG TABLET PO SCH (20:06)
[2018-07-05] MEDS: SACUBITRIL/VALSARTAN 24 MG-26 MG TABLET PO SCH (20:07)
[2018-07-05] MEDS ORDERED: ATORVASTATIN 80 MG TAB PO SCH (21:00)
[2018-07-05] MEDS ORDERED: ISOSORBIDE DINITRATE 20 MG TAB PO SCH (21:00)
[2018-07-05] MEDS ORDERED: diphenhydrAMINE 25 MG CAP PO SCH (21:00)
[2018-07-05] MEDS ORDERED: FUROSEMIDE 40 MG TAB PO SCH (21:00)
[2018-07-05] MEDS ORDERED: ACETAMINOPHEN TAB 325 MG TAB PO SCH (21:00)
--- NOTE | 2018-07-05 21:09 | HP ---
HISTORY AND PHYSICAL DATE OF SERVICE: 07/05/2018. CHIEF COMPLAINT: Chest pain. HISTORY OF PRESENT ILLNESS: This 77-year-old gentleman with a past medical history of CAD, CABG, hypertension, hyperlipidemia, sleep apnea, appendectomy, being followed by [facility] and Dr. Zuniga in the outpatient setting, was complaining of chest pain. The patient had multiple stents. The patient had a CABG in 1990 in [facility]. The patient was experienced intermittent chest pain and shortness of breath. The patient was taken to [facility] and was admitted for further evaluation and treatment. The initial troponins were negative. EKG showed in the anterior leads. No acute changes. The patient was admitted for further evaluation and treatment. There is no history of fevers or rigors, no headache, no associated symptoms or radiation of the pain as than mentioned. PAST MEDICAL HISTORY: History of CAD, CABG, history of hypertension, sleep apnea, appendectomy. MEDICATIONS: Prior to admission, home medications are: 1. Entresto / one p.o. b.i.d. 2. Crestor 40 mg at bedtime. 3. Klor-Con 20 mg p.o. daily. 4. Protonix 40 mg daily. 5. Paxil 20 mg. 6. Nitrostat 0.4 mg sublingual p.r.n. 7. Metoprolol 25 mg p.o. b.i.d. 8. Zaroxolyn 2.5 mg daily p.r.n. 9. Isordil 80 mg p.o. b.i.d. 10.Gabapentin 600 mg p.o. t.i.d. 11.Lasix 80 mg every a.m. and 40 mg at bedtime. 12.Plavix 10 mg p.o. daily. 13.Ecotrin 81 mg daily. 14.Artificial Tears 1 q.i.d. p.r.n. 15.Eliquis 2.5 mg b.i.d. ALLERGIES: IODINE, LISINOPRIL, PENICILLIN, PENICILLIN, HYDROMORPHONE. FAMILY HISTORY: No history of heart disease or strokes in the family. SOCIAL HISTORY: No history of smoking. No alcohol. REVIEW OF SYSTEMS: ENT: No diminished hearing or vision. CARDIOVASCULAR: As mentioned. RESPIRATORY: As mentioned earlier. GI: None. : None. NERVOUS SYSTEM: No numbness or weakness. ALLERGY: None. MUSCULOSKELETAL: As mentioned earlier. HEMATOLOGY/ONCOLOGY: None. ENDOCRINE: No history of diabetes or hypothyroidism. CONSTITUTIONAL: As mentioned earlier. PHYSICAL EXAMINATION: The patient is alert, oriented x3. VITAL SIGNS: Pulse 68, blood pressure 120/72, respirations 16, temperature 98.1 , pulse ox 98% on room air. HEENT: Conjunctivae normal. Oral mucosa moist. NECK: No jugular venous distention. No lymph node enlargement. CARDIOVASCULAR: S1 and S2 muffled. LUNGS: Breath sounds diminished at the bases. Scattered rhonchi and crackles. ABDOMEN: Soft, nontender. No mass palpable. LEGS: No edema, no swelling. NERVOUS SYSTEM: Higher functions as mentioned earlier. Moves all four limbs. No focal motor or sensory deficits. SKIN: No ulcer, rash, bleeding. LABS: WBC 6.2, hemoglobin 12.6. ASSESSMENT: 1. Chest pain, possible unstable angina. 2. History of coronary artery disease with coronary artery bypass grafting. 3. Hypertension. 4. Hyperlipidemia. 5. Sleep apnea. 6. History of appendectomy. 7. Anxiety. RECOMMENDATIONS AND DISCUSSION: In this 77-year-old gentleman who presented with multiple complex medical issues , we will monitor the patient closely, continue the current management and resume home medications. Rule out myocardial infarction. Unstable angina protocol. Otherwise guarded prognosis because of multiple complex medical issues. Further management depending on clinical course. See orders for further details. MMODL / IJN: [id number] / MTDD
[2018-07-05 23:53] LABS: Creatine Kinase 75 U/L (55-170)
[2018-07-06 00:05] LABS: Creatine Kinase MB 0.7 ng/mL (0.0-2.4); Troponin I <0.012 ng/mL (0.000-0.034)
[2018-07-06] MEDS: NITROGLYCERIN OINT 1 INCH/GM PACKET TOPICAL SCH (03:41)
[2018-07-06] MEDS ORDERED: PANTOPRAZOLE 40 MG TABLET PO SCH (07:30)
[2018-07-06 07:38] VITALS: RESP 18
[2018-07-06 07:50] LABS: Basophils % (A) 0 %; Eosinophils # (A) 0.2 k/uL (0-0.7); Eosinophils % (A) 6 %; HCT 37.6 % (39.0-53.0); HGB 12.7 gm/dL (13.0-17.5); Lymphocytes % (A) 24 %; MCH 31.1 pg (25.0-35.0); MCHC 33.8 g/dL (31.0-37.0); Mean Platelet Volume 6.7; Monocytes # (A) 0.3 k/uL (0-1.0); Monocytes % (A) 7 %; Neutrophils # (A) 2.5 k/uL (1.3-7.7); Neutrophils % (A) 59 %; Platelet Count 151 k/uL (150-450); RBC 4.09 m/uL (4.30-5.90); RDW 14.3 % (11.5-15.5); WBC 4.2 k/uL (3.8-10.6)
[2018-07-06 08:25] LABS: Calcium 8.9 mg/dL (8.4-10.2); Potassium 4.2 mmol/L (3.5-5.1)
[2018-07-06] MEDS ORDERED: ASPIRIN 81 MG PO SCH (09:00)
[2018-07-06] MEDS ORDERED: PARoxetine 20 MG TAB PO SCH (09:00)
[2018-07-06] MEDS ORDERED: POTASSIUM CHLORIDE ER 20 MEQ TAB.ER PO SCH (09:00)
[2018-07-06] MEDS ORDERED: FUROSEMIDE 80 MG TAB PO SCH (09:00)
[2018-07-06] MEDS ORDERED: ASPIRIN 325 MG TAB PO SCH (09:00)
[2018-07-06] MEDS ORDERED: CLOPIDOGREL 75 MG TAB PO SCH (09:00)
[2018-07-06] MEDS: GABAPENTIN 300 MG CAP PO SCH (10:47)
[2018-07-06] MEDS: SACUBITRIL/VALSARTAN 24 MG-26 MG TABLET PO SCH (10:48)
[2018-07-06] MEDS: APIXABAN 2.5 MG TABLET PO SCH (10:48)
[2018-07-06] MEDS: METOPROLOL TARTRATE 25 MG TAB PO SCH (10:48)
--- NOTE | 2018-07-06 11:23 | P.CRDCN ---
History of Present Illness History of present illness: This is a pleasant 77-year-old male past medical history significant for coronary artery disease s/p bypass grafting as well as multiple angioplasties per the patient, exact details unavailable. He follows with a industrial engineering technician out of town, Dr. Linares. He also has chronic systolic heart failure status post AICD placement, hypertension, dyslipidemia, paroxysmal atrial fibrillation on long-term anticoagulation currently maintaining sinus mechanism and obstructive sleep apnea. We have been asked to see him in consultation for symptoms of chest discomfort. He states he has been feeling symptoms of indigestion like a burning type sensation in the midsternal region over the previous few days. He denies radiation to the neck, arm, back or jaw. His pain seems to come and night when he lays down. He has been treating this discomfort to reflux. He denies associated shortness of breath, dizziness , nausea, vomiting or palpitations. He went to the clinic yesterday for evaluation and was sent to the emergency room to rule out any sort of blood clot. D-dimer was checked and was normal at 0.55. He states he did feel the burning in his chest last night when he lay down to sleep. He states his most recent catheterization was approximately one year ago and at that time he did not receive any new stents. He has an appointment scheduled with primary industrial engineering technician since Tuesday. He states he typically has heart catheterization every 9-12 months and hasn't had a stress test in many years. EKG reveals atrial paced rhythm with poor R-wave progression. Chest x-ray reveals strandy atelectasis in bilateral lower lungs. Laboratory data reviewed, WBC 4.2, hemoglobin 12.7, platelets 151, d-dimer 0.55 , sodium 144, potassium 4.2, creatinine 1.13, magnesium 2.2, cardiac enzymes negative 3, NT proBNP 426, LDL 81 and HDL 39. Current cardiac medications include Eliquis 2.5 mg twice a day, aspirin 81 mg daily, Plavix 75 mg daily, Lasix 80 mg in the morning and 40 mg at bedtime, metoprolol 25 mg twice a day, rosuvastatin 40 mg daily, entresto 24/26 mg twice a day and Zaroxolyn 2.5 mg daily when necessary. At the time of my exam: CONSTITUTIONAL: Denies fever. Denies chills. EYES: Denies blurred vision. Denies vision changes. Denies eye pain. EARS, NOSE, MOUTH & THROAT: Denies headache. Denies sore throat. Denies ear pain. CARDIOVASCULAR: Denies chest pain. Denies shortness of breath. Denies orthopnea. Denies PND. Denies palpitations. RESPIRATORY: Denies cough. GASTROINTESTINAL: Denies abdominal pain. Denies diarrhea. Denies constipation. Denies nausea. Denies vomiting. MUSCULOSKELETAL: Denies myalgias. INTEGUMENTARY: Denies pruitis. Denies rash. NEUROLOGIC: Denies numbness. Denies tingling. Denies weakness. PSYCHIATRIC: Denies anxiety. Denies depression. ENDOCRINE: Denies fatigue. Denies weight change. Denies polydipsia. Denies polyurina. GENITOURINARY: Denies burning, hematuria or urgency with micturation. HEMATOLOGIC: Denies history of anemia. Denies bleeding. Blood pressure 117/72 heart rate 68 afebrile maintaining oxygen saturation on room air GENERAL: This is a 77-year-old male in no apparent distress at the time of my examination. HEENT: Head is atraumatic, normocephalic. Pupils are equal, round. Sclerae anicteric. Conjunctivae are clear. Mucous membranes of the mouth are moist. Neck is supple. There is no jugular venous distention. No carotid bruit is heard. LUNGS: Clear to auscultation no wheezes, rales or rhonchi. No chest wall tenderness is noted on palpation or with deep breathing. HEART: Regular rate and rhythm without murmurs, rubs or gallops. S1 and S2 heard. ABDOMEN: Soft, nontender. Bowel sounds are heard. No organomegaly noted. EXTREMITIES: No evidence of peripheral edema and no calf tenderness noted. VASCULAR: Radial and dorsalis pedis pulses palpated, no evidence of clubbing. NEUROLOGIC: Patient is awake, alert and oriented x3. ASSESSMENT Chest pain. An acute coronary event has been ruled out. History of coronary artery disease status post bypass grafting with multiple angioplasties thereafter Paroxysmal atrial fibrillation on long-term anticoagulation currently maintaining sinus mechanism Chronic systolic heart failure, currently euvolemic Status post AICD Hypertension Dyslipidemia PLAN An acute coronary event has been ruled out. Obtain 2-D echocardiogram and Doppler study to assess cardiac structure and function. Stable from a cardiac perspective. Patient would prefer to go home and see his primary industrial engineering technician. His symptoms are atypical for angina and an acute event has been ruled out. Advised him to return to ED if he has any further symptoms of chest discomfort. He is agreeable and reliable. Thank you kindly for this consultation. Nurse Practitioner note has been reviewed, I agree with a documented findings and plan of care. Patient was seen and examined. 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 Smoking Status: Never smoker Past Alcohol Use History: None Reported Past Drug Use History: None Reported Medications and Allergies Home Medications Medication Instructions Recorded Confirmed Type Artificial Tears-Hypromellose 1 drops BOTH EYES QID PRN 11/08/16 07/05/18 History [Artificial Tear Drops] Aspirin [Adult Low Dose Aspirin EC] 81 mg PO DAILY 11/08/16 07/05/18 History Clopidogrel [Plavix] 75 mg PO DAILY 11/08/16 07/05/18 History Furosemide [Lasix] 40 mg PO HS 11/08/16 07/05/18 History Furosemide [Lasix] 80 mg PO QAM 11/08/16 07/05/18 History Nitroglycerin Sl Tabs [Nitrostat] 0.4 mg SUBLINGUAL Q5M PRN 11/08/16 07/05/18 History Pantoprazole [Protonix] 40 mg PO AC-BRKFST 11/08/16 07/05/18 History Rosuvastatin Calcium [Crestor] 40 mg PO HS 11/08/16 07/05/18 History Apixaban [Eliquis] 2.5 mg PO BID 08/11/17 07/05/18 History Metolazone [Zaroxolyn] 2.5 mg PO DAILY PRN 08/11/17 07/05/18 History Potassium Chloride [Klor-Con 20] 20 meq PO DAILY 08/11/17 07/05/18 History Sacubitril/Valsartan [Entresto 24 1 tab PO BID 08/11/17 07/05/18 History mg-26 mg Tablet] Acetaminophen/Chlorpheniramine 1 tab PO HS 07/05/18 07/05/18 History [Coricidin Hbp Cold & Flu Tab] Gabapentin 600 mg PO TID 07/05/18 07/05/18 History Metoprolol Tartrate 25 mg PO BID 07/05/18 07/05/18 History PARoxetine [Paxil] 20 mg PO DAILY 07/05/18 07/05/18 History Allergies Allergy/AdvReac Type Severity Reaction Status Date / Time iodine Allergy Rash/Hives Verified 07/05/18 10:58 lisinopril Allergy Unknown Verified 07/05/18 10:58 Penicillins Allergy Rash/Hives Verified 07/05/18 10:58 hydromorphone [From Dilaudid] AdvReac Hallucinati Verified 07/05/18 12:45 ons Physical Exam Vitals: Vital Signs Temp Pulse Pulse Pulse Resp BP BP 07/06/18 07:05 98.3 F 68 18 07/06/18 04:00 97.6 F 72 16 116/71 07/06/18 03:01 16 07/06/18 00:00 97.6 F 67 16 106/68 07/05/18 20:00 16 07/05/18 19:45 98.1 F 68 16 124/72 07/05/18 16:56 96 83 18 07/05/18 16:27 97.5 F L 96 18 145/86 07/05/18 16:00 70 17 120/82 07/05/18 15:30 69 18 127/82 07/05/18 11:45 83 07/05/18 10:55 97.6 F 81 20 149/83 BP Pulse Ox 07/06/18 07:05 117/72 98 07/06/18 04:00 94 L 07/06/18 03:01 07/06/18 00:00 94 L 07/05/18 20:00 07/05/18 19:45 93 L 07/05/18 16:56 07/05/18 16:27 95 07/05/18 16:00 95 07/05/18 15:30 97 07/05/18 11:45 07/05/18 10:55 98 Intake and Output 07/05/18 07/06/18 07/06/18 22:59 06:59 14:59 Intake Total 240 Balance 240 Intake: Oral 240 Other: Voiding Method Toilet Toilet # Voids 1 Weight 97.5 kg Results 07/06/18 07:14 07/06/18 07:14 Cardiac Enzymes 07/05/18 07/05/18 07/05/18 Range/Units 11:42 11:42 17:32 AST 23 (17-59) U/L CK-MB (CK-2) 1.1 1.0 (0.0-2.4) ng/mL Troponin I <0.012 <0.012 (0.000-0.034) ng/mL 07/05/18 Range/Units 23:03 AST (17-59) U/L CK-MB (CK-2) 0.7 (0.0-2.4) ng/mL Troponin I <0.012 (0.000-0.034) ng/mL Coagulation 07/05/18 Range/Units 11:42 PT 10.0 (9.0-12.0) sec APTT 22.6 (22.0-30.0) sec CBC 07/05/18 07/06/18 Range/Units 11:42 07:14 WBC 6.1 4.2 (3.8-10.6) k/uL RBC 4.20 L 4.09 L (4.30-5.90) m/uL Hgb 12.6 L 12.7 L (13.0-17.5) gm/dL Hct 38.6 L 37.6 L (39.0-53.0) % Plt Count 179 151 (150-450) k/uL Comprehensive Metabolic Panel 07/05/18 Range/Units 11:42 Sodium 142 (137-145) mmol/L Potassium 4.6 (3.5-5.1) mmol/L Chloride 106 (98-107) mmol/L Carbon Dioxide 28 (22-30) mmol/L BUN 22 H (9-20) mg/dL Creatinine 1.22 (0.66-1.25) mg/dL Glucose 93 (74-99) mg/dL Calcium 9.2 (8.4-10.2) mg/dL AST 23 (17-59) U/L ALT 26 (21-72) U/L Alkaline Phosphatase 56 (38-126) U/L Total Protein 6.7 (6.3-8.2) g/dL Albumin 4.1 (3.5-5.0) g/dL Current Medications Generic Name Dose Route Start Last Admin Trade Name Freq PRN Reason Stop Dose Admin Acetaminophen 650 mg 07/05/18 19:11 07/05/18 20:05 Tylenol Tab PO 650 mg Q6HR PRN Administration Fever and/ or Mild Pain Alprazolam 0.25 mg 07/05/18 19:57 Xanax PO TID PRN Anxiety Apixaban 2.5 mg 07/05/18 21:00 07/05/18 20:06 Eliquis PO 2.5 mg BID MARLENE Administration Artificial Tears 1 drops 07/05/18 19:09 Artificial Tear Drops BOTH EYES QID PRN Dry Eye(s) Aspirin 81 mg 07/06/18 09:00 Aspirin PO DAILY [facility] Atorvastatin Calcium 80 mg 07/05/18 21:00 07/05/18 20:06 Lipitor PO 80 mg HS [facility] Administration Clopidogrel Bisulfate 75 mg 07/06/18 09:00 Plavix PO DAILY [facility] Furosemide 40 mg 07/05/18 21:00 07/05/18 20:06 Lasix PO 40 mg HS [facility] Administration Furosemide 80 mg 07/06/18 09:00 Lasix PO QAM [facility] Gabapentin 600 mg 07/05/18 22:00 07/05/18 20:05 Neurontin PO 600 mg TID [facility] Administration Metolazone 2.5 mg 07/05/18 19:09 Zaroxolyn PO DAILY PRN Edema Metoprolol Tartrate 25 mg 07/05/18 21:00 07/05/18 20:06 Lopressor PO 25 mg BID [facility] Administration Nitroglycerin 1 inch 07/05/18 18:00 07/06/18 03:41 Nitro-Bid Oint TOPICAL Not Given Q6HR [facility] Nitroglycerin 0.4 mg 07/05/18 19:09 Nitrostat SUBLINGUAL Q5M PRN Chest Pain Pantoprazole Sodium 40 mg 07/06/18 07:30 Protonix PO AC-BRKFST [facility] Paroxetine HCl 20 mg 07/06/18 09:00 Paxil PO DAILY [facility] Potassium Chloride 20 meq 07/06/18 09:00 K-Dur 20 PO DAILY [facility] Sacubitril/Valsartan 1 each 07/05/18 21:00 07/05/18 20:07 Entresto 24 Mg-26 Mg Tablet PO 1 each BID MARLENE Administration Temazepam 15 mg 07/05/18 19:57 Restoril PO HS PRN Insomnia Intake and Output 07/05/18 07/06/18 07/06/18 22:59 06:59 14:59 Intake Total 240 Balance 240 Intake: Oral 240 Other: Voiding Method Toilet Toilet # Voids 1 Weight 97.5 kg 07/06/18 07:14 07/05/18 11:42
[2018-07-06 11:42] VITALS: BP 137/81; PULSE 69; TEMP 98.2
--- NOTE | 2018-07-06 12:07 | ECHOF ---
Referral Reason:cp, exertional sob MEASUREMENTS -------- HEIGHT: 165.1 cm WEIGHT: 97.1 kg BP: IVSd: 1.5 cm (0.6 - 1.1) LVIDd: 5.9 cm (3.9 - 5.3) LVPWd: 1.4 cm (0.6 - 1.1) IVSs: 1.6 cm LVIDs: 5.0 cm LVPWs: 1.2 cm LA Diam: 4.7 cm (2.7 - 3.8) LAESV Index (A-L): 28.61 ml/m Ao Diam: 3.4 cm (2.0 - 3.7) AV Cusp: 2.1 cm (1.5 - 2.6) LA Diam: 5.2 cm (2.7 - 3.8) MV EXCURSION: 16.399 mm (> 18.000) MV EF SLOPE: 123 mm/s (70 - 150) EPSS: 1.7 cm MV E Rob: 0.44 m/s MV DecT: 216 ms MV A Rob: 0.73 m/s MV E/A Ratio: 0.61 AR PHT: 464 ms RAP: 5.00 mmHg RVSP: 22.84 mmHg FINDINGS -------- Sinus rhythm. Pacerwire seen in RV and RA. This was a technically adequate study. The left ventricle is mildly dilated. There is moderate concentric left ventricular hypertrophy. There is mild global hypokinesis of LV . Overall left ventricular systolic function is mildly impai red with, an EF between 45 - 50 %. The right ventricle is normal in size. The left atrium is markedly dilated. The right atrial size is normal. The aortic valve is trileaflet and appears structurally normal. There is mild aortic regurgitation. The mitral valve leaflets are mildly thickened. Mild mitral regurgitation is present. Mild tricuspid regurgitation present. There is no evidence of pulmonary hypertension. The right v entricular systolic pressure, as measured by Doppler, is 22.84mmHg. There is no pulmonic regurgitation present. The aortic root size is normal. There is no pericardial effusion. CONCLUSIONS -------- 1. Sinus rhythm. 2. Pacerwire seen in RV and RA. 3. The left ventricle is mildly dilated. 4. There is moderate concentric left ventricular hypertrophy. 5. There is mild global hypokinesis of LV . 6. Overall left ventricular systolic function is mildly impaired with, an EF between 45 - 50 %. 7. The left atrium is markedly dilated. 8. There is mild aortic regurgitation. 9. Mild mitral regurgitation is present. 10. Mild tricuspid regurgitation present. 11. There is no evidence of pulmonary hypertension. 12. There is no pulmonic regurgitation present. 13. The aortic root size is normal. 14. There is no pericardial effusion. CONSTRUCTION PROJECT COORDINATOR: Aarti Akins RDCS
--- NOTE | 2018-07-06 12:52 | P.DS ---
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 There was a concern about PE from [facility] although his d-dimer is negative symptomatology is not consistent with pulmonary embolism. She will be discharged today. Please refer to rOal's dictation regarding his other chronic medical problems hospitalization course. PHYSICAL EXAMINATION: GENERAL: The patient is alert and oriented x3, not in any acute distress. Well developed, well nourished. HEENT: Pupils are round and equally reacting to light. EOMI. No scleral icterus. No conjunctival pallor. Normocephalic, atraumatic. No pharyngeal erythema. No thyromegaly. CARDIOVASCULAR: S1 and S2 present. No murmurs, rubs, or gallops. PULMONARY: Chest is clear to auscultation, no wheezing or crackles. ABDOMEN: Soft, nontender, nondistended, normoactive bowel sounds. No palpable organomegaly. MUSCULOSKELETAL: No joint swelling or deformity. EXTREMITIES: No cyanosis, clubbing, or pedal edema. NEUROLOGICAL: Gross neurological examination did not reveal any focal deficits. SKIN: No rashes. Plan - Discharge Summary Discharge Rx Participant: Yes New Discharge Prescriptions: No Action Artificial Tears-Hypromellose [Artificial Tear Drops] 1 drops BOTH EYES QID PRN PRN Reason: Dry Eye(S) Aspirin [Adult Low Dose Aspirin EC] 81 mg PO DAILY Clopidogrel [Plavix] 75 mg PO DAILY Furosemide [Lasix] 40 mg PO HS Furosemide [Lasix] 80 mg PO QAM Nitroglycerin Sl Tabs [Nitrostat] 0.4 mg SUBLINGUAL Q5M PRN PRN Reason: Chest Pain Pantoprazole [Protonix] 40 mg PO AC-BRKFST Rosuvastatin Calcium [Crestor] 40 mg PO HS Metolazone [Zaroxolyn] 2.5 mg PO DAILY PRN PRN Reason: Edema Potassium Chloride [Klor-Con 20] 20 meq PO DAILY Apixaban [Eliquis] 2.5 mg PO BID Sacubitril/Valsartan [Entresto 24 mg-26 mg Tablet] 1 tab PO BID PARoxetine [Paxil] 20 mg PO DAILY Metoprolol Tartrate 25 mg PO BID Gabapentin 600 mg PO TID Acetaminophen/Chlorpheniramine [Coricidin Hbp Cold & Flu Tab] 1 tab PO HS Discharge Medication List Artificial Tears-Hypromellose [Artificial Tear Drops] 1 drops BOTH EYES QID PRN 11/08/16 [History] Aspirin [Adult Low Dose Aspirin EC] 81 mg PO DAILY 11/08/16 [History] Clopidogrel [Plavix] 75 mg PO DAILY 11/08/16 [History] Furosemide [Lasix] 40 mg PO HS 11/08/16 [History] Furosemide [Lasix] 80 mg PO QAM 11/08/16 [History] Nitroglycerin Sl Tabs [Nitrostat] 0.4 mg SUBLINGUAL Q5M PRN 11/08/16 [History] Pantoprazole [Protonix] 40 mg PO AC-BRKFST 11/08/16 [History] Rosuvastatin Calcium [Crestor] 40 mg PO HS 11/08/16 [History] Apixaban [Eliquis] 2.5 mg PO BID 08/11/17 [History] Metolazone [Zaroxolyn] 2.5 mg PO DAILY PRN 08/11/17 [History] Potassium Chloride [Klor-Con 20] 20 meq PO DAILY 08/11/17 [History] Sacubitril/Valsartan [Entresto 24 mg-26 mg Tablet] 1 tab PO BID 08/11/17 [ History] Acetaminophen/Chlorpheniramine [Coricidin Hbp Cold & Flu Tab] 1 tab PO HS [History] Gabapentin 600 mg PO TID 07/05/18 [History] Metoprolol Tartrate 25 mg PO BID 07/05/18 [History] PARoxetine [Paxil] 20 mg PO DAILY 07/05/18 [History] Follow up Appointment(s)/Referral(s): [facility],Clinic [Primary Care Provider] - 1-2 days
--- NOTE | 2018-07-06 12:57 | P.HPIM ---
History of Present Illness 74-year-old the female came in with complaints of discomfort in the back of the neck along with shoulder and EKG changes were suspicious for some acute ST-T wave changes because of which patient was sent in here from PCPs office rule out acute coronary syndromes patient's troponins are negative EKGs here did not show any significant acute ST-T wave changes. Patient chest pain is sharp in nature and has some spasms in the front of the chest patient denied any diaphoresis nausea lightheadedness associated with that patient's pain is mostly in the shoulder area and has been going on since her accidents in the past. Patient's pain appears to be musculoskeletal patient underwent stress test if that's negative patient will be discharged today chest x-ray did not show any pneumonic process, CT angios the chest did not show any pulmonary embolism there is some minimal subsegmental atelectasis. Review of Systems REVIEW OF SYSTEMS: CONSTITUTIONAL: No fever, no malaise, no fatigue. HEENT: No recent visual problems or hearing problems. Denied any sore throat. CARDIOVASCULAR: No orthopnea, PND, no palpitations, no syncope. PULMONARY: No shortness of breath, no cough, no hemoptysis. GASTROINTESTINAL: No diarrhea, no nausea, no vomiting, no abdominal pain. Normoactive bowel sounds. NEUROLOGICAL: No headaches, no weakness, no numbness. HEMATOLOGICAL: Denies any bleeding or petechiae. GENITOURINARY: Denies any burning micturition, frequency, or urgency. MUSCULOSKELETAL/RHEUMATOLOGICAL: Mentioned above ENDOCRINE: Denies any polyuria or polydipsia. The rest of the 14-point review of systems is negative. 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 Smoking Status: Never smoker Past Alcohol Use History: None Reported Past Drug Use History: None Reported Medications and Allergies Home Medications Medication Instructions Recorded Confirmed Type Artificial Tears-Hypromellose 1 drops BOTH EYES QID PRN 11/08/16 07/05/18 History [Artificial Tear Drops] Aspirin [Adult Low Dose Aspirin EC] 81 mg PO DAILY 11/08/16 07/05/18 History Clopidogrel [Plavix] 75 mg PO DAILY 11/08/16 07/05/18 History Furosemide [Lasix] 40 mg PO HS 11/08/16 07/05/18 History Furosemide [Lasix] 80 mg PO QAM 11/08/16 07/05/18 History Nitroglycerin Sl Tabs [Nitrostat] 0.4 mg SUBLINGUAL Q5M PRN 11/08/16 07/05/18 History Pantoprazole [Protonix] 40 mg PO AC-BRKFST 11/08/16 07/05/18 History Rosuvastatin Calcium [Crestor] 40 mg PO HS 11/08/16 07/05/18 History Apixaban [Eliquis] 2.5 mg PO BID 08/11/17 07/05/18 History Metolazone [Zaroxolyn] 2.5 mg PO DAILY PRN 08/11/17 07/05/18 History Potassium Chloride [Klor-Con 20] 20 meq PO DAILY 08/11/17 07/05/18 History Sacubitril/Valsartan [Entresto 24 1 tab PO BID 08/11/17 07/05/18 History mg-26 mg Tablet] Acetaminophen/Chlorpheniramine 1 tab PO HS 07/05/18 07/05/18 History [Coricidin Hbp Cold & Flu Tab] Gabapentin 600 mg PO TID 07/05/18 07/05/18 History Metoprolol Tartrate 25 mg PO BID 07/05/18 07/05/18 History PARoxetine [Paxil] 20 mg PO DAILY 07/05/18 07/05/18 History Allergies Allergy/AdvReac Type Severity Reaction Status Date / Time iodine Allergy Rash/Hives Verified 07/05/18 10:58 lisinopril Allergy Unknown Verified 07/05/18 10:58 Penicillins Allergy Rash/Hives Verified 07/05/18 10:58 hydromorphone [From Dilaudid] AdvReac Hallucinati Verified 07/05/18 12:45 ons Physical Exam Vitals: Vital Signs Temp Pulse Pulse Pulse Resp BP BP 07/06/18 11:41 98.2 F 69 18 137/81 11/29/18 07:05 98.3 F 68 18 07/06/18 04:00 97.6 F 72 16 116/71 07/06/18 03:01 16 07/06/18 00:00 97.6 F 67 16 106/68 07/05/18 20:00 16 07/05/18 19:45 98.1 F 68 16 124/72 07/05/18 16:56 96 83 18 07/05/18 16:27 97.5 F L 96 18 145/86 07/05/18 16:00 70 17 120/82 07/05/18 15:30 69 18 127/82 BP Pulse Ox 07/06/18 11:41 98 07/06/18 07:05 117/72 98 07/06/18 04:00 94 L 07/06/18 03:01 07/06/18 00:00 94 L 07/05/18 20:00 07/05/18 19:45 93 L 07/05/18 16:56 07/05/18 16:27 95 07/05/18 16:00 95 07/05/18 15:30 97 Intake and Output 07/05/18 07/06/18 07/06/18 22:59 06:59 14:59 Intake Total 240 Balance 240 Intake: Oral 240 Other: Voiding Method Toilet Toilet Toilet # Voids 1 Weight 97.5 kg PHYSICAL EXAMINATION: GENERAL: The patient is alert and oriented x3, not in any acute distress. Well developed, well nourished. HEENT: Pupils are round and equally reacting to light. EOMI. No scleral icterus. No conjunctival pallor. Normocephalic, atraumatic. No pharyngeal erythema. No thyromegaly. CARDIOVASCULAR: S1 and S2 present. No murmurs, rubs, or gallops. PULMONARY: Chest is clear to auscultation, no wheezing or crackles. ABDOMEN: Soft, nontender, nondistended, normoactive bowel sounds. No palpable organomegaly. MUSCULOSKELETAL: No joint swelling or deformity. EXTREMITIES: No cyanosis, clubbing, or pedal edema. NEUROLOGICAL: Gross neurological examination did not reveal any focal deficits. SKIN: No rashes. Results CBC & Chem 7: 07/06/18 07:14 07/06/18 07:14 Labs: Abnormal Lab Results - Last 24 Hours (Table) 07/06/18 07/06/18 Range/Units 07:14 07:14 RBC 4.09 L (4.30-5.90) m/uL Hgb 12.7 L (13.0-17.5) gm/dL Hct 37.6 L (39.0-53.0) % Chloride 109 H (98-107) mmol/L Glucose 100 H (74-99) mg/dL HDL Cholesterol 39 L (40-60) mg/dL Thrombosis Risk Factor Assmnt - Choose All That Apply Each Factor Represents 1 point: Obesity (BMI >25) Other Risk Factors: No Other congenital or acquired thrombophilia - If yes, enter type in comment: No Thrombosis Risk Factor Assessment Total Risk Factor Score: 1 Thrombosis Risk Factor Assessment Level: Low Risk Assessment and Plan Plan: -Chest pain: Rule out acute current syndromes patient underwent stress test if that is negative patient will be discharged today patient the pain is mostly musculoskeletal from traumatic degenerative neck disease further workup as an outpatient, patient was advised to take as needed [id number] nonsteroidal anti-inflammatories for neck pain, either cold compresses or heat pack was suggested as well. 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 Farrukh Mixon in about 3-7 days.
== END 2018-07-06 13:45 | disposition home or self-care (01) ==
LOC: EC 10:53 → 1SOBS 15:11
PROVIDERS: ADMIT Internal Medicine; ATTEND Internal Medicine
DX: R07.89 Other chest pain (principal); R06.02 Shortness of breath; Z95.1 Presence of aortocoronary bypass graft; Z95.5 Presence of coronary angioplasty implant and graft; E78.5 Hyperlipidemia, unspecified; F41.9 Anxiety disorder, unspecified; I11.0 Hypertensive heart disease with heart failure; I50.22 Chronic systolic (congestive) heart failure; I48.0 Paroxysmal atrial fibrillation; I25.10 Atherosclerotic heart disease of native coronary artery without angina pectoris; K30 Functional dyspepsia; I25.2 Old myocardial infarction; Z79.82 Long term (current) use of aspirin; Z79.02 Long term (current) use of antithrombotics/antiplatelets; Z79.01 Long term (current) use of anticoagulants; Z79.899 Other long term (current) drug therapy; Z88.5 Allergy status to narcotic agent; Z88.0 Allergy status to penicillin; Z88.8 Allergy status to other drugs, medicaments and biological substances; Z91.048 Other nonmedicinal substance allergy status; G47.33 Obstructive sleep apnea (adult) (pediatric); Z99.89 Dependence on other enabling machines and devices; Z95.810 Presence of automatic (implantable) cardiac defibrillator; Z90.49 Acquired absence of other specified parts of digestive tract
CPT/HCPCS: 99285; 36415; 93005; 93306; 85379; 83880; 80061; 80053; 80048; 82550; 82553; 83735; 84484; 85025 ×2; 85610; 85730; 71046; G0378 ×2

== ENCOUNTER → 2018-08-30 | Outpatient (CLI) | payer OTHER ==
--- NOTE | 2018-08-30 09:58 | US ---
EXAMINATION TYPE: US kidneys/renal and bladder DATE OF EXAM: 08/30/2018 COMPARISON: CLINICAL HISTORY: N18.3 Chronic Kidney Disease stage 3. abnormal labs, no pain EXAM MEASUREMENTS: Right Kidney: 10.5 x 5.3 x 5.6 cm Left Kidney: 10.4 x 4.6 x 5.6 cm Right Kidney: Appears lobular in appearance. Medial mid echogenic focus with shadow - 0.7 x 0.5 cm Left Kidney: wnl Bladder: mildly distended, wnl as visualized Bilateral Jets not seen There is no evidence for hydronephrosis at this point in time. No masses are identified. The urinary bladder is anechoic. Bilateral ureteral jets are seen. IMPRESSION: Lobulated renal contour noted bilaterally. 2. Nonobstructing nephrolithiasis suggested right kidney.
== END ==
LOC: RADUSWWP 08:52
PROVIDERS: ATTEND Internal Medicine
DX: R93.421 Abnormal radiologic findings on diagnostic imaging of right kidney (principal); R93.422 Abnormal radiologic findings on diagnostic imaging of left kidney; N18.3 Chronic kidney disease, stage 3 (moderate)
CPT/HCPCS: 76770

== ENCOUNTER → 2019-02-09 | Outpatient (CLI) | payer OTHER ==
--- NOTE | 2019-02-09 11:37 | CT ---
EXAMINATION TYPE: CT chest wo/w con DATE OF EXAM: 02/09/2019 COMPARISON: 06/09/2018 HISTORY: Pulmonary nodules CT DLP: 1147 mGycm Automated exposure control for dose reduction was used. CONTRAST: CT scan of the chest is performed without and with IV Contrast, patient injected with 80 mL of Isovue 300. FINDINGS: LUNGS: Pleural based pulmonary nodule measures 7 mm in the right lower lobe posterior medially, this appears stable compared to the prior exam . Elongated partially calcified pleural plaque is seen along the left upper and lower lobes measuring 1 .1 cm in greatest thickness. Greatest thickness is unchanged from the prior. No focal consolidation, pleural effusion or pneumothorax. Minimal pleural parenchymal scarring is seen bilaterally within the lower lobes. The tracheobronchial tree is patent. MEDIASTINUM: There are no greater than 1 cm hilar or mediastinal lymph nodes. No pericardial effusi on is seen. Right-sided cardiac device is present. Post CABG changes the chest are noted. Heart is m ildly enlarged. Ascending thoracic aorta is within normal limits of size measuring 3.7 cm. Coronary a rtery calcifications noted. OTHER: Nonobstructing right renal calculus measures 3 mm in the midpole. There is a small hiatal her cecilio seen. Mild bilateral retroareolar gynecomastia is incidentally seen. Multilevel degenerative murrell ges of the spine are present in moderate with stable mild compression deformity of the T12 vertebral body in comparison to the prior. Tiny hepatic dome lesion too small to characterize. IMPRESSION: 1. No acute process. 2. Stable elongated partially calcified left pleural plaque or atelectasis suggestive of prior asbest os exposure. 3. Stable 7 mm pleural-based right lower lobe pulmonary nodule compared to the prior exam. Follow-up CT would be recommended in 6-12 months given the suspected slight interval growth. 4. Small hiatal hernia.
== END | disposition home or self-care (01) ==
LOC: RADCTMAIN 10:23
DX: R91.1 Solitary pulmonary nodule (principal); K44.9 Diaphragmatic hernia without obstruction or gangrene; Z88.0 Allergy status to penicillin; Z88.8 Allergy status to other drugs, medicaments and biological substances
CPT/HCPCS: 36415; 71270; 82565; 84520

== ENCOUNTER → 2019-05-30 | Outpatient (CLI) | payer MEDICARE ==
--- NOTE | 2019-05-31 11:53 | ECHOF ---
Referral Reason:I50.41 CHF MEASUREMENTS -------- HEIGHT: 167.6 cm WEIGHT: 88.9 kg BP: RVIDd: 2.8 cm (< 3.3) IVSd: 1.2 cm (0.6 - 1.1) LVIDd: 5.1 cm (3.9 - 5.3) LVPWd: 1.1 cm (0.6 - 1.1) IVSs: 1.3 cm LVIDs: 4.0 cm LVPWs: 1.9 cm LAESV Index (A-L): 21.22 ml/m Ao Diam: 3.2 cm (2.0 - 3.7) AV Cusp: 2.4 cm (1.5 - 2.6) LA Diam: 5.1 cm (2.7 - 3.8) MV EXCURSION: 17.180 mm (> 18.000) MV EF SLOPE: 165 mm/s (70 - 150) EPSS: 1.7 cm MV E Rob: 0.38 m/s MV DecT: 345 ms MV A Rob: 0.78 m/s MV E/A Ratio: 0.49 AR PHT: 441 ms RAP: 5.00 mmHg RVSP: 35.40 mmHg FINDINGS -------- Sinus rhythm. This was a technically adequate study. The left ventricular size is normal. There is mild concentric left ventricular hypertrophy. Overa ll left ventricular systolic function is moderately impaired with, an EF between 35 - 40 %. Normal Lap Grade I Diastolic Dysfunction. The right ventricle is normal in size. Normal LA size by volume 22+/-6 ml/m2. Electronic pacemaker lead seen in the right atrial cavity. Interatrial and interventricular septum intact. There is mild aortic regurgitation. There is no evidence of aortic stenosis. Mild mitral annular calcification present. Mild mitral regurgitation is present. Mild tricuspid regurgitation present. There is mild pulmonary hypertension. The right ventricular systolic pressure, as measured by Doppler, is 35.40mmHg. There is no pulmonic regurgitation present. The aortic root size is normal. IVC Not well visulized. There is no pericardial effusion. CONCLUSIONS -------- 1. Sinus rhythm. 2. This was a technically adequate study. 3. The left ventricular size is normal. 4. There is mild concentric left ventricular hypertrophy. 5. Overall left ventricular systolic function is moderately impaired with, an EF between 35 - 40 %. 6. Normal Lap Grade I Diastolic Dysfunction. 7. The right ventricle is normal in size. 8. Normal LA size by volume 22+/-6 ml/m2. 9. Electronic pacemaker lead seen in the right atrial cavity. 10. Interatrial and interventricular septum intact. 11. There is mild aortic regurgitation. 12. There is no evidence of aortic stenosis. 13. Mild mitral annular calcification present. 14. Mild mitral regurgitation is present. 15. Mild tricuspid regurgitation present. 16. There is mild pulmonary hypertension. 17. The right ventricular systolic pressure, as measured by Doppler, is 35.40mmHg. 18. There is no pulmonic regurgitation present. 19. The aortic root size is normal. 20. IVC Not well visulized. 21. There is no pericardial effusion. MACHINE [employer]KER: Kimmy Flood RDCS
== END | disposition home or self-care (01) ==
LOC: RADECHMAIN 14:31
PROVIDERS: ATTEND Internal Medicine Cardiovascular Disease
DX: I08.3 Combined rheumatic disorders of mitral, aortic and tricuspid valves (principal); I27.20 Pulmonary hypertension, unspecified
CPT/HCPCS: 93306

== ENCOUNTER → 2019-06-22 | Outpatient (CLI) | payer OTHER ==
--- NOTE | 2019-06-22 08:18 | US ---
EXAMINATION TYPE: US scrotum with doppler. Grayscale and color Doppler Duplex imaging performed of ewa osorio scrotum. DATE OF EXAM: 06/22/2019 COMPARISON: CLINICAL HISTORY: N50.819 Testicular pain, unspecified. Left teste pain that comes and goes. Hx hydr oceles. EXAM MEASUREMENTS: TESTICLES: Right Testicle: 4.3 x 3.1 x 2.8 cm Left Testicle: 3.4 x 3.0 x 3.2 cm EPIDIDYMIS HEAD: Right Epididymis: 1.0 x 1.3 x 0.9 cm Left Epididymis: 1.1 x 1.0 x 0.8 cm Doppler performed to assess for testicular vascularity; good bilateral color flow and waveforms are s een. There is no evidence of testicular torsion. Presence of hydroceles: Bilateral, moderate right and trace left. Presence of varicoceles: no Right teste cystic appearing lesion = 0.3 x 0.4 x 0.3 cm. Left teste cystic appearing lesion medial = 0.2 x 0.2 x 0.2 cm. Left epididymal head cystic appearing lesions, largest = 0.6 x 1.0 x 0.5 cm. Left groin scanned. Possible hernia visualized - 1.5 cm. Valsalva performed with movement seen. IMPRESSION: 1. There is appearance of a small left inguinal hernia with no definitive internal bowel. Correlate w ith physical exam for reducibility. 2. Benign-appearing left epididymal cysts and testicular cystic lesions bilaterally. 3. Bilateral hydroceles (moderate on the right and trace on the left.
== END | disposition home or self-care (01) ==
LOC: RADUSWWP 06:49
DX: N50.3 Cyst of epididymis (principal); N43.3 Hydrocele, unspecified; N50.89 Other specified disorders of the male genital organs
CPT/HCPCS: 76870; 93975

== ENCOUNTER → 2019-09-17 | Outpatient (CLI) | payer OTHER ==
--- NOTE | 2019-09-17 17:33 | CT ---
EXAMINATION TYPE: CT soft tissue neck w con DATE OF EXAM: 09/17/2019 COMPARISON: None HISTORY: Throat pain. CT DLP: 694 mGycm CONTRAST: Patient injected with 80ml mL of Isovue 300. TECHNIQUE: Axial images at 3 mm thick sections. Reconstructed images in the coronal plane and sagitt al plane are reviewed. FINDINGS: Limited CT sections are obtained the lung apices. The lung apices appear clear. CT neck: The torus tubarius and fossa of Rosenmuller are normal. Bleach Chlorinator spaces are normal. Ther e is a retention cyst within the right maxillary sinus. Parotid glands appear normal and symmetrical. Submandibular glands, are normal. Parapharyngeal spac es are normal. No suspicious adenopathy is evident. The hypopharynx appears within normal limits. There may be slight medial deviation of the right vocal cord. Suspicious mass however is not identifi ed. Consider direct visualization. Thyroid as visualized is normal. Facet degenerative changes are within the cervical spine. Prior sternotomy is been performed. IMPRESSIONS: 1. Some minimal medial deviation of the right vocal cord may be present. Consider direct visualizatio n. 2. Right inferior maxillary sinus retention cyst.
== END | disposition home or self-care (01) ==
LOC: RADCTMAIN 13:57
PROVIDERS: ATTEND Otolaryngology
DX: R07.9 Chest pain, unspecified (principal); Z01.812 Encounter for preprocedural laboratory examination
CPT/HCPCS: 82565; 84520; 70491; 36415; Q9967

== ENCOUNTER → 2020-05-23 | Outpatient (CLI) | payer MEDICARE ==
--- NOTE | 2020-05-23 10:29 | CT ---
EXAMINATION TYPE: CT abdomen pelvis wo con DATE OF EXAM: 05/23/2020 COMPARISON: Ultrasound kidneys 08/30/2018. Ultrasound abdomen 11/07/2017. CT chest 02/09/2019. HISTORY: Abdominal pain, right sided for [address] DLP: 810.90 mGycm Automated exposure control for dose reduction was used. TECHNIQUE: Helical acquisition of images was performed from the lung bases through the pelvis. CONTRAST: Performed with Oral Contrast and without intravenous contrast. FINDINGS: LUNG BASES: Redemonstrated left basilar pleural plaque with calcification may represent prior asbesto s exposure. Incompletely visualized pacemaker leads. Calcified coronary artery disease. No pericardia l or pleural effusion. LIVER: Normal attenuation and size. BILIARY SYSTEM: No intrahepatic or extrahepatic biliary ductal dilatation. PANCREAS: No peripancreatic stranding or fluid collection. SPLEEN: Not enlarged. ADRENALS: Normal. KIDNEYS: 2 adjacent 3 mm calcifications of the right interpolar kidney. Left renal vascular calcifica tion. No hydronephrosis or hydroureter. No ureteral or bladder calculi. BOWEL: No obstruction or thickening. Minimal colonic diverticulosis. No acute diverticulitis. Status post appendectomy. PERITONEUM: No pneumoperitoneum. No free fluid. LYMPH NODES: No lymphadenopathy. PELVIS: Urinary bladder is underdistended. No pericystic inflammatory change. The left testis is with in the inguinal canal. Large right hydrocele. VASCULATURE: Infrarenal abdominal aortic ectasia measures up to 2.8 cm. Moderate calcified atheroscl erotic disease. MUSCULOSKELETAL: Degenerative changes of the spine. There is bony fusion of the T11-T12 vertebral caroline dies. IMPRESSION: 1. 3 mm calcifications within the right lower kidney may represent nonobstructing nephrolithiasis ve rsus vascular calcification. No ureteral or bladder calculi. No hydronephrosis. 2. Large right hydrocele. Left testis is within the inguinal canal.
== END | disposition home or self-care (01) ==
LOC: RADCTMAIN 07:25
PROVIDERS: ATTEND Family Medicine
DX: N28.89 Other specified disorders of kidney and ureter (principal); N43.3 Hydrocele, unspecified
CPT/HCPCS: 74176

== ENCOUNTER 2021-01-19 09:43 | Inpatient (IN) | payer OTHER, MEDICARE ==
[2021-01-19] MEDS ORDERED: SODIUM CHLORIDE 0.9% 1,000 ML IV STA (10:08)
[2021-01-19] MEDS ORDERED: IPRATROPIUM-ALBUTEROL 3 ML NEB INHALATION STA (10:09)
--- NOTE | 2021-01-19 10:11 | ED ---
General Adult HPI - General Chief complaint: Shortness of Breath Stated complaint: pneumonia Time Seen by Provider: 01/19/21 09:53 Source: patient, RN notes reviewed Mode of arrival: ambulatory Limitations: no limitations - History of Present Illness Initial comments: Patient is a pleasant 80-year-old male presenting to the emergency Department with complaints of difficulty breathing. Onset of symptoms was around 5 days ago. Patient did go to urgent care and was diagnosed with pneumonia. Patient was given antibiotics. Symptoms seem to start improving however worsened again yesterday. Patient does have cough with productive yellow sputum. No fever. No history of chronic lung problems. Patient was tested negative for Crohn a virus. - Related Data Home Medications Medication Instructions Recorded Confirmed Artificial Tears-Hypromellose 1 drops BOTH EYES QID PRN 11/08/16 07/05/18 [Artificial Tear Drops] Aspirin [Adult Low Dose Aspirin EC] 81 mg PO DAILY 11/08/16 07/05/18 Clopidogrel [Plavix] 75 mg PO DAILY 11/08/16 07/05/18 Furosemide [Lasix] 40 mg PO HS 11/08/16 07/05/18 Furosemide [Lasix] 80 mg PO QAM 11/08/16 07/05/18 Nitroglycerin Sl Tabs [Nitrostat] 0.4 mg SUBLINGUAL Q5M PRN 11/08/16 07/05/18 Pantoprazole [Protonix] 40 mg PO AC-BRKFST 11/08/16 07/05/18 Rosuvastatin Calcium [Crestor] 40 mg PO HS 11/08/16 07/05/18 Apixaban [Eliquis] 2.5 mg PO BID 08/11/17 07/05/18 Potassium Chloride [Klor-Con 20] 20 meq PO DAILY 08/11/17 07/05/18 Sacubitril/Valsartan [Entresto 24 1 tab PO BID 08/11/17 07/05/18 mg-26 mg Tablet] metOLazone [Zaroxolyn] 2.5 mg PO DAILY PRN 08/11/17 07/05/18 Acetaminophen/Chlorpheniramine 1 tab PO HS 07/05/18 07/05/18 [Coricidin Hbp Cold & Flu Tab] Gabapentin 600 mg PO TID 07/05/18 07/05/18 Metoprolol Tartrate 25 mg PO BID 07/05/18 07/05/18 PARoxetine [Paxil] 20 mg PO DAILY 07/05/18 07/05/18 Allergies Allergy/AdvReac Type Severity Reaction Status Date / Time iodine Allergy Rash/Hives Verified 01/19/21 13:04 lisinopril Allergy Unknown Verified 01/19/21 13:04 Penicillins Allergy Rash/Hives Verified 01/19/21 13:04 hydromorphone [From Dilaudid] AdvReac Hallucinati Verified 01/19/21 13:04 ons Review of Systems ROS Statement: Those systems with pertinent positive or pertinent negative responses have been documented in the HPI. ROS Other: All systems not noted in ROS Statement are negative. Constitutional: Denies: fever, chills Eyes: Denies: eye pain ENT: Denies: ear pain Respiratory: Reports: cough, dyspnea Cardiovascular: Denies: chest pain Endocrine: Reports: fatigue Gastrointestinal: Denies: abdominal pain Genitourinary: Denies: urgency Musculoskeletal: Denies: back pain Skin: Denies: rash Neurological: Denies: weakness Past Medical History Past Medical History: Coronary Artery Disease (CAD), Hyperlipidemia, Hypertension, Sleep Apnea/CPAP/BIPAP History of Any Multi-Drug Resistant Organisms: None Reported Past Surgical History: Appendectomy, Coronary Bypass/CABG, Heart Catheterization, Orthopedic Surgery Additional Past Surgical History / Comment(s): knee Past Anesthesia/Blood Transfusion Reactions: No Reported Reaction Past Psychological History: No Psychological Hx Reported, Anxiety Past Alcohol Use History: None Reported Past Drug Use History: None Reported General Exam Limitations: no limitations General appearance: alert, in no apparent distress Head exam: Present: normocephalic Eye exam: Present: normal appearance Neck exam: Present: normal inspection Respiratory exam: Present: rales (Greatest in the right base) Cardiovascular Exam: Present: regular rate, normal rhythm GI/Abdominal exam: Present: soft. Absent: tenderness Extremities exam: Present: normal inspection Neurological exam: Present: alert Psychiatric exam: Present: normal affect, normal mood Skin exam: Present: normal color Course Vital Signs 01/19/21 01/19/21 01/19/21 09:44 10:00 10:15 Temperature 97.4 F L Pulse Rate 71 66 Respiratory 20 22 20 Rate Blood Pressure 146/82 130/80 O2 Sat by Pulse 94 L 94 L Oximetry 01/19/21 01/19/2101/19/21 10:35 10:40 13:00 Temperature Pulse Rate 70 74 67 Respiratory 20 Rate Blood Pressure 123/73 O2 Sat by Pulse 94 L Oximetry EKG Findings - EKG Comments: EKG Findings:: Paced rhythm with a rate of 74. OK 222. QRS 106. QT 390. QTC 432. Left axis. Incomplete left bundle-branch block. No acute ST change. Medical Decision Making - Medical Decision Making Outpatient chest x-ray also reviewed. Patient reevaluated with no improvement. Patient is a house. Clinically there is concern for pneumonia. Case discussed with Dr. Almazan who did evaluate patient and will admit covering Dr. Wen Rodas. - Lab Data Result diagrams: 01/19/21 10:15 01/19/21 10:15 Lab Results 01/19/21 01/19/21 01/19/21 Range/Units 10:15 10:15 10:15 WBC 12.7 H (3.8-10.6) k/uL RBC 3.96 L (4.30-5.90) m/uL Hgb 12.5 L (13.0-17.5) gm/dL Hct 36.8 L (39.0-53.0) % MCV 92.7 (80.0-100.0) fL MCH 31.5 (25.0-35.0) pg MCHC 33.9 (31.0-37.0) g/dL RDW 14.9 (11.5-15.5) % Plt Count 293 (150-450) k/uL MPV 6.9 Neutrophils % 84 % Lymphocytes % 8 % Monocytes % 7 % Eosinophils % 1 % Basophils % 0 % Neutrophils # 10.6 H (1.3-7.7) k/uL Lymphocytes # 1.0 (1.0-4.8) k/uL Monocytes # 0.9 (0-1.0) k/uL Eosinophils # 0.1 (0-0.7) k/uL Basophils # 0.1 (0-0.2) k/uL PT 10.2 (9.0-12.0) sec INR 0.9 (<1.2) APTT 22.0 (22.0-30.0) sec Sodium 140 (137-145) mmol/L Potassium 4.3 (3.5-5.1) mmol/L Chloride 109 H (98-107) mmol/L Carbon Dioxide 23 (22-30) mmol/L Anion Gap 8 mmol/L BUN 16 (9-20) mg/dL Creatinine 0.94 (0.66-1.25) mg/dL Est GFR (CKD-EPI)AfAm 90 (>60 ml/min/1.73 sqM) Est GFR (CKD-EPI)NonAf 78 (>60 ml/min/1.73 sqM) Glucose 119 H (74-99) mg/dL Plasma Lactic Acid Meir (0.7-2.0) mmol/L Calcium 9.2 (8.4-10.2) mg/dL Total Bilirubin 0.4 (0.2-1.3) mg/dL AST 21 (17-59) U/L ALT 11 (4-49) U/L Alkaline Phosphatase 61 (38-126) U/L NT-Pro-B Natriuret Pep pg/mL Total Protein 6.6 (6.3-8.2) g/dL Albumin 4.2 (3.5-5.0) g/dL 01/19/21 01/19/21 Range/Units 10:15 10:15 WBC (3.8-10.6) k/uL RBC (4.30-5.90) m/uL Hgb (13.0-17.5) gm/dL Hct (39.0-53.0) % MCV (80.0-100.0) fL MCH (25.0-35.0) pg MCHC (31.0-37.0) g/dL RDW (11.5-15.5) % Plt Count (150-450) k/uL MPV Neutrophils % % Lymphocytes % % Monocytes % % Eosinophils % % Basophils % % Neutrophils # (1.3-7.7) k/uL Lymphocytes # (1.0-4.8) k/uL Monocytes # (0-1.0) k/uL Eosinophils # (0-0.7) k/uL Basophils # (0-0.2) k/uL PT (9.0-12.0) sec INR (<1.2) APTT (22.0-30.0) sec Sodium (137-145) mmol/L Potassium (3.5-5.1) mmol/L Chloride (98-107) mmol/L Carbon Dioxide (22-30) mmol/L Anion Gap mmol/L BUN (9-20) mg/dL Creatinine (0.66-1.25) mg/dL Est GFR (CKD-EPI)AfAm (>60 ml/min/1.73 sqM) Est GFR (CKD-EPI)NonAf (>60 ml/min/1.73 sqM) Glucose (74-99) mg/dL Plasma Lactic Acid Meir 1.0 (0.7-2.0) mmol/L Calcium (8.4-10.2) mg/dL Total Bilirubin (0.2-1.3) mg/dL AST (17-59) U/L ALT (4-49) U/L Alkaline Phosphatase (38-126) U/L NT-Pro-B Natriuret Pep 1120 pg/mL Total Protein (6.3-8.2) g/dL Albumin (3.5-5.0) g/dL - Radiology Data Radiology results: image reviewed (Chest x-ray shows no acute process) Disposition Clinical Impression: Dyspnea Disposition: ADMITTED IP TO THIS HOSP Is patient prescribed a controlled substance at d/c from ED?: No Referrals: Baldomero Zuniga DO [Doctor of Osteopathic Medicine] - 1-2 days Decision Time: 13:06
[2021-01-19 10:38] LABS: Basophils # (A) 0.1 k/uL (0-0.2); Basophils % (A) 0 %; Eosinophils # (A) 0.1 k/uL (0-0.7); Eosinophils % (A) 1 %; HCT 36.8 % (39.0-53.0); HGB 12.5 gm/dL (13.0-17.5); Lymphocytes % (A) 8 %; MCH 31.5 pg (25.0-35.0); MCHC 33.9 g/dL (31.0-37.0); MCV 92.7 fL (80.0-100.0); Mean Platelet Volume 6.9; Monocytes # (A) 0.9 k/uL (0-1.0); Monocytes % (A) 7 %; Neutrophils # (A) 10.6 k/uL (1.3-7.7); Neutrophils % (A) 84 %; Platelet Count 293 k/uL (150-450); RBC 3.96 m/uL (4.30-5.90); RDW 14.9 % (11.5-15.5); WBC 12.7 k/uL (3.8-10.6)
[2021-01-19 10:51] LABS: INR 0.9 (<1.2); Prothrombin Time 10.2 sec (9.0-12.0)
[2021-01-19 10:52] LABS: Albumin 4.2 g/dL (3.5-5.0); Calcium 9.2 mg/dL (8.4-10.2); Potassium 4.3 mmol/L (3.5-5.1); Total Bilirubin 0.4 mg/dL (0.2-1.3); Total Protein 6.6 g/dL (6.3-8.2)
--- NOTE | 2021-01-19 11:46 | XR ---
EXAMINATION TYPE: XR chest 2V DATE OF EXAM: 01/19/2021 COMPARISON: Chest x-ray July 05, 2018. Chest CT February 09, 2019. HISTORY: Recent diagnosis of pneumonia with worsening shortness of breath and productive cough. TECHNIQUE: Frontal and lateral views of the chest are obtained. FINDINGS: There is mild chronic parenchymal changes without suspicious focal air space opacity, pleu ral effusion, or pneumothorax seen. The cardiac silhouette size is stable and mildly enlarged with m ulti lead pacemaker/defibrillator. Coronary stent anterior superior heart level redemonstrated. The osseous structures are intact. IMPRESSION: Chronic changes or mild cardiomegaly without acute pulmonary process.
[2021-01-19] MEDS ORDERED: IPRATROPIUM-ALBUTEROL 3 ML NEB INHALATION PRN (13:06)
[2021-01-19] MEDS ORDERED: PNEUMONIA PROTOCOL UTILIZED 1 EACH MISC PO PRN (13:06)
[2021-01-19] MEDS ORDERED: methylPREDNISolone SOD SUCCI 125 MG/2 ML VIAL IV STA (13:06)
[2021-01-19] MEDS ORDERED: AZITHROMYCIN 500 MG in SODIUM CHLORIDE 0.9% 250 ML IVPB STA (13:06)
[2021-01-19] MEDS ORDERED: SODIUM CHLORIDE 0.9% 1,000 ML IV SCH (13:15)
[2021-01-19] MEDS: IPRATROPIUM-ALBUTEROL 3 ML NEB INHALATION SCH ×2 (15:16→20:55)
[2021-01-19] MEDS ORDERED: ARTIFICIAL TEARS-HYPROMELLOSE DROPS 15 ML BTL BOTH EYES PRN (15:55)
[2021-01-19] MEDS ORDERED: BENZONATATE 100 MG CAP PO PRN (15:55)
[2021-01-19] MEDS ORDERED: NITROGLYCERIN SL TABS 0.4 MG TAB SUBLINGUAL PRN (15:55)
[2021-01-19] MEDS ORDERED: FLUTICASONE 50MCG/SPRAY NASAL 16GM EA NOSTRIL PRN (15:55)
--- NOTE | 2021-01-19 16:12 | P.HPIM ---
History of Present Illness Patient is pleasant 74-year-old male came in with the complaints of shortness of breath and coughing with yellow sputum production has been going on for colitis patient was seen in urgent care where they did a chest x-ray which showed bilateral infiltrates suspicious for pneumonia and patient was started on his erythromycin. Patient's symptoms continued to get worse because of which are his daughter asked him to go to the hospital patient was tested for Covid 19 at the urgent care facility which was negative. Patient has significant bilateral rhonchi consistent with either severe bronchitis or pneumonia chest x-ray did not show any pneumonia patient does have leukocytosis no fever. Patient was started on Rocephin and azithromycin was subsequently admitted to the hospital. Patient does have history of congestive heart failure with EF around 35% presently not in heart failure exacerbation. IV fluids will be discontinued. Patient did quit smoking many years ago patient does have history of coronary artery disease history of DVT in the past patient does have history of atrial fibrillation unsure why patient is on a low-dose of licorice. Patient does have history of AICD. Review of Systems REVIEW OF SYSTEMS: CONSTITUTIONAL: No fever, no malaise, no fatigue. HEENT: No recent visual problems or hearing problems. Denied any sore throat. CARDIOVASCULAR: No chest pain, orthopnea, PND, no palpitations, no syncope. PULMONARY: As mentioned in HPI. GASTROINTESTINAL: No diarrhea, no nausea, no vomiting, no abdominal pain. NEUROLOGICAL: No headaches, no weakness, no numbness. HEMATOLOGICAL: Denies any bleeding or petechiae. GENITOURINARY: Denies any burning micturition, frequency, or urgency. MUSCULOSKELETAL/RHEUMATOLOGICAL: Denies any joint pain, swelling, or any muscle pain. ENDOCRINE: Denies any polyuria or polydipsia. The rest of the 14-point review of systems is negative. Past Medical History Past Medical History: Atrial Fibrillation, Coronary Artery Disease (CAD), Cancer, Heart Failure, Deep Vein Thrombosis (DVT), GERD/Reflux, Hyperlipidemia, Hypertension, Myocardial Infarction ([place]), Osteoarthritis (OA), Sleep Apne a/CPAP/BIPAP Additional Past Medical History / Comment(s): R lung stable pulmonary nodule, internal bleed/went unresponsive/transfused, RUPINDER/did not tolerate CPap, DVT R leg, diverticular disease/polyps, prostate cancer with biopsies/then cancer was gone, arthritis in multiple joints, 2 back vertebral fractures, chronic back pain Last Myocardial Infarction Date:: 1989 History of Any Multi-Drug Resistant Organisms: None Reported Past Surgical History: AICD, Appendectomy, Coronary Bypass/CABG, Heart Catheterization, Heart Catheterization With Stent, Joint Replacement, Orthopedic Surgery, Prostate Surgery Additional Past Surgical History / Comment(s): 2005 AICD with 2 battery replacements/last battery change was in 2019, PCI/multiple stents, coronary angioplasties, TURP, prostate biopsies, colonoscopy, bilateral total knee arthroplasties. Past Anesthesia/Blood Transfusion Reactions: No Reported Reaction Additional Past Anesthesia/Blood Transfusion Reaction / Comment(s): Pt has had blood transfusions without reaction. Date of Last Stent Placement:: 2019 Type of Cardiac Device: AICD Device Placement Date:: 2005 Smoking Status: Former smoker - Past Family History Father Family Medical History: Myocardial Infarction ([place]) Additional Family Medical History / Comment(s): Father of a [place] at the age of 63yrs. Mother Additional Family Medical History / Comment(s): Mother in bed. She was a heavy smoker. Medications and Allergies Home Medications Medication Instructions Recorded Confirmed Type Clopidogrel [Plavix] 75 mg PO DAILY 11/08/16 01/19/21 History Furosemide [Lasix] 40 mg PO MOWEFR@2100 11/08/16 01/19/21 History Furosemide [Lasix] 80 mg PO MOWEFR@0900 11/08/16 01/19/21 History Nitroglycerin Sl Tabs [Nitrostat] 0.4 mg SUBLINGUAL Q5M PRN 11/08/16 01/19/21 History Pantoprazole [Protonix] 40 mg PO AC-BRKFST 11/08/16 01/19/21 History Rosuvastatin Calcium [Crestor] 40 mg PO HS 11/08/16 01/19/21 History Apixaban [Eliquis] 2.5 mg PO BID 08/11/17 01/19/21 History Potassium Chloride [Klor-Con 20] 20 meq PO DAILY 08/11/17 01/19/21 History Sacubitril/Valsartan [Entresto 24 1 tab PO BID 08/11/17 01/19/21 History mg-26 mg Tablet] Gabapentin 600 mg PO TID 07/05/18 01/19/21 History Metoprolol Tartrate 25 mg PO BID 07/05/18 01/19/21 History Azithromycin [Zithromax] 500 mg PO DAILY 01/19/21 01/19/21 History Benzonatate [Tessalon Perles] 100 mg PO TID PRN 01/19/21 01/19/21 History Carboxymethylcellulose Sodium 1 drop BOTH EYES QID PRN 01/19/21 01/19/21 History [Refresh Tears] Cholecalciferol [Vitamin D3 (25 50 mcg PO DAILY 01/19/21 01/19/21 History Mcg = 1000 Iu)] Ferrous Sulfate [Feosol] 325 mg PO DAILY 01/19/21 01/19/21 History Fluticasone Nasal [place] [Flonase 1 spray EA NOSTRIL BID PRN 01/19/21 01/19/21 History Nasal [place]] Isosorbide Mononitrate ER [Imdur] 60 mg PO TID 01/19/21 01/19/21 History PARoxetine HCL 20 mg PO DAILY 01/19/21 01/19/21 History calcitrioL [Calcitriol] 0.25 mcg PO MOWEFR 01/19/21 01/19/21 History predniSONE 10 mg PO BID 01/19/21 01/19/21 History Allergies Allergy/AdvReac Type Severity Reaction Status Date / Time iodine Allergy Rash/Hives Verified 01/19/21 13:09 lisinopril Allergy Unknown Verified 01/19/21 13:09 Penicillins Allergy Rash/Hives Verified 01/19/21 13:09 hydromorphone [From Dilaudid] AdvReac Hallucinati Verified 01/19/21 13:09 ons Physical Exam Vitals: Vital Signs Temp Pulse Resp BP Pulse Ox 01/19/21 15:22 76 01/19/21 15:18 73 01/19/21 14:47 72 22 130/81 94 L 01/19/21 13:25 71 20 123/73 95 01/19/21 13:00 67 20 123/73 94 L 01/19/21 10:40 74 01/19/21 10:35 70 01/19/21 10:15 66 20 130/80 94 L 01/19/21 10:00 22 01/19/21 09:44 97.4 F L 71 20 146/82 94 L Intake and Output 01/19/21 01/19/21 01/19/21 06:59 14:59 22:59 Other: Weight 92.533 kg 92.533 kg PHYSICAL EXAMINATION: GENERAL: The patient is alert and oriented x3, not in any acute distress. Well developed, well nourished. HEENT: Pupils are round and equally reacting to light. EOMI. No scleral icterus. No conjunctival pallor. Normocephalic, atraumatic. No pharyngeal erythema. No thyromegaly. CARDIOVASCULAR: S1 and S2 present. No murmurs, rubs, or gallops. PULMONARY: Diffuse bilateral rhonchi ABDOMEN: Soft, nontender, nondistended, normoactive bowel sounds. No palpable organomegaly. MUSCULOSKELETAL: No joint swelling or deformity. EXTREMITIES: No cyanosis, clubbing, or pedal edema. NEUROLOGICAL: Gross neurological examination did not reveal any focal deficits. SKIN: No rashes. Results CBC & Chem 7: 01/19/21 10:15 01/19/21 10:15 Labs: Abnormal Lab Results - Last 24 Hours (Table) 01/19/21 01/19/21 Range/Units 10:15 10:15 WBC 12.7 H (3.8-10.6) k/uL RBC 3.96 L (4.30-5.90) m/uL Hgb 12.5 L (13.0-17.5) gm/dL Hct 36.8 L (39.0-53.0) % Neutrophils # 10.6 H (1.3-7.7) k/uL Chloride 109 H (98-107) mmol/L Glucose 119 H (74-99) mg/dL Thrombosis Risk Factor Assmnt - Choose All That Apply Any of the Below Risk Factors Present?: Yes Other Risk Factors: Yes Each Risk Factor Represents 3 Points: Age 75 years or older, History of DVT/PE Other congenital or acquired thrombophilia - If yes, enter type in comment: No Thrombosis Risk Factor Assessment Total Risk Factor Score: 6 Thrombosis Risk Factor Assessment Level: High Risk Assessment and Plan Plan: -Cough, shortness of breath: Secondary to severe tracheobronchitis patient failed outpatient therapy for pneumonia. No obvious pneumonia on the chest x- ray that was done here. Patient will be continued on antibiotics. Pulmonary will evaluate the patient. She is presently on Rocephin and azithromycin which will be continued. -Congestive heart failure chronic systolic dysfunction EF of around 30-35% pres ently not in acute exacerbation patient will be resumed on home doses of oral Lasix. IV fluids were dyspnea -Atrial fibrillation paroxysmal A. fib patient will be resumed on Eliquis but will increase the dose to 5 mg twice a day -Coronary artery disease -History of DVT in the past -Gastric spindle reflux disease -Hypertension -Sleep apnea -History of prostate cancer in remission at this time -History of AICD and CABG in the past
--- NOTE | 2021-01-19 16:12 | P.CNPUL ---
History of Present Illness Consult date: 01/19/21 Requesting physician: Ned Tinoco Reason for consult: dyspnea, cough Chief complaint: Dyspnea, cough, congestion History of present illness: 80-year-old white male patient with past medical history of coronary artery disease status post bypass grafting hypertension, hyperlipidemia, chronic LV dy sfunction and cardia myopathy, chronic systolic CHF, paroxysmal atrial fibrillation, and former history of smoking however his outpatient PFT showed relatively normal lung function with FEV1 of 94% of predicted. On 01/19/2021 patient came into the emergency department with complaints of difficulty breathing, cough and chest congestion. His onset of symptoms was around 5 days ago. Patient was seen at the [facility] urgent care clinic and was diagnosed with pneumonia. He was given a seven-day course of azithromycin, prednisone 20 mg daily for 5 days and Tessalon pearls. He denied any fever or chills, denied any hemoptysis, he continues to have a congested cough with production of yellow sputum. He reports a recent history of COVID-19 infection however did not require hospitalization for it. His chest x-ray shows mild chronic parenchymal changes without suspicious focal airspace opacity, pleural effusion or pneumothorax. Admission lab work showed a white blood cell, 12.7, hemoglobin of 12.5, INR 0.9, electrolytes and renal profile were unremarkable, lactic acid was 1, proBNP was 1120, LFTs are within normal limits, COVID-19 PCR was negative. Patient was started on a combination of azithromycin and Rocephin, breathing treatments, and we will add IV steroids to his regimen. Review of Systems All systems: negative Constitutional: Denies chills, Denies fever Eyes: denies blurred vision, denies pain Ears, nose, mouth and throat: Denies headache, Denies sore throat Cardiovascular: Denies chest pain, Denies shortness of breath Respiratory: Reports cough, Reports cough with sputum, Reports dyspnea, Reports respiratory infections Gastrointestinal: Denies abdominal pain, Denies diarrhea, Denies nausea, Denies vomiting Musculoskeletal: Denies myalgias Integumentary: Denies pruritus, Denies rash Neurological: Denies numbness, Denies weakness Psychiatric: Denies anxiety, Denies depression Endocrine: Denies fatigue, Denies weight change Past Medical History Past Medical History: Atrial Fibrillation, Coronary Artery Disease (CAD), Cancer, Heart Failure, Deep Vein Thrombosis (DVT), GERD/Reflux, Hyperlipidemia, Hypertension, Myocardial Infarction ([place]), Osteoarthritis (OA), Sleep Apnea/CPAP/BIPAP Additional Past Medical History / Comment(s): R lung stable pulmonary nodule, internal bleed/went unresponsive/transfused, RUPINDER/did not tolerate CPap, DVT R leg, diverticular disease/polyps, prostate cancer with biopsies/then cancer was gone, arthritis in multiple joints, 2 back vertebral fractures, chronic back pain Last Myocardial Infarction Date:: 1989 History of Any Multi-Drug Resistant Organisms: None Reported Past Surgical History: AICD, Appendectomy, Coronary Bypass/CABG, Heart Catheterization, Heart Catheterization With Stent, Joint Replacement, Orthopedic Surgery, Prostate Surgery Additional Past Surgical History / Comment(s): 2005 AICD with 2 battery replacements/last battery change was in 2019, PCI/multiple stents, coronary angioplasties, TURP, prostate biopsies, colonoscopy, bilateral total knee arthroplasties. Past Anesthesia/Blood Transfusion Reactions: No Reported Reaction Additional Past Anesthesia/Blood Transfusion Reaction / Comment(s): Pt has had blood transfusions without reaction. Date of Last Stent Placement:: 2019 Type of Cardiac Device: AICD Device Placement Date:: 2005 Smoking Status: Former smoker - Past Family History Father Family Medical History: Myocardial Infarction ([place]) Additional Family Medical History / Comment(s): Father of a [place] at the age of 63yrs. Mother Additional Family Medical History / Comment(s): Mother in bed. She was a heavy smoker. Medications and Allergies Home Medications Medication Instructions Recorded Confirmed Type Clopidogrel [Plavix] 75 mg PO DAILY 11/08/16 01/19/21 History Furosemide [Lasix] 40 mg PO MOWEFR@2100 11/08/16 01/19/21 History Furosemide [Lasix] 80 mg PO MOWEFR@0900 11/08/16 01/19/21 History Nitroglycerin Sl Tabs [Nitrostat] 0.4 mg SUBLINGUAL Q5M PRN 11/08/16 01/19/21 History Pantoprazole [Protonix] 40 mg PO AC-BRKFST 11/08/16 01/19/21 History Rosuvastatin Calcium [Crestor] 40 mg PO HS 11/08/16 01/19/21 History Apixaban [Eliquis] 2.5 mg PO BID 08/11/17 01/19/21 History Potassium Chloride [Klor-Con 20] 20 meq PO DAILY 08/11/17 01/19/21 History Sacubitril/Valsartan [Entresto 24 1 tab PO BID 08/11/17 01/19/21 History mg-26 mg Tablet] Gabapentin 600 mg PO TID 07/05/18 01/19/21 History Metoprolol Tartrate 25 mg PO BID 07/05/18 01/19/21 History Azithromycin [Zithromax] 500 mg PO DAILY 01/19/21 01/19/21 History Benzonatate [Tessalon Perles] 100 mg PO TID PRN 01/19/21 01/19/21 History Carboxymethylcellulose Sodium 1 drop BOTH EYES QID PRN 01/19/21 01/19/21 History [Refresh Tears] Cholecalciferol [Vitamin D3 (25 50 mcg PO DAILY 01/19/21 01/19/21 History Mcg = 1000 Iu)] Ferrous Sulfate [Feosol] 325 mg PO DAILY 01/19/21 01/19/21 History Fluticasone Nasal [place] [Flonase 1 spray EA NOSTRIL BID PRN 01/19/21 01/19/21 Hi story Nasal [place]] Isosorbide Mononitrate ER [Imdur] 60 mg PO TID 01/19/21 01/19/21 History PARoxetine HCL 20 mg PO DAILY 01/19/21 01/19/21 History calcitrioL [Calcitriol] 0.25 mcg PO MOWEFR 01/19/21 01/19/21 History predniSONE 10 mg PO BID 01/19/21 01/19/21 History Allergies Allergy/AdvReac Type Severity Reaction Status Date / Time iodine Allergy Rash/Hives Verified 01/19/21 13:09 lisinopril Allergy Unknown Verified 01/19/21 13:09 Penicillins Allergy Rash/Hives Verified 01/19/21 13:09 hydromorphone [From Dilaudid] AdvReac Hallucinati Verified 01/19/21 13:09 ons Physical Exam Vitals: Vital Signs Temp Pulse Resp BP Pulse Ox 01/19/21 15:22 76 01/19/21 15:18 73 01/19/21 14:47 72 22 130/81 94 L 01/19/21 13:25 71 20 123/73 95 01/19/21 13:00 67 20 123/73 94 L 01/19/21 10:40 74 01/19/21 10:35 70 01/19/21 10:15 66 20 130/80 94 L 01/19/21 10:00 22 01/19/21 09:44 97.4 F L 71 20 146/82 94 L Intake and Output 01/19/21 01/19/21 01/19/21 06:59 14:59 22:59 Other: Weight 92.533 kg 92.533 kg GENERAL EXAM: Alert, very pleasant, 80-year-old white male, on room air with pulse ox of 94-95%, and has a congested cough comfortable in no apparent distress. HEAD: Normocephalic/atraumatic. EYES: Normal reaction of pupils, equal size. Conjunctiva pink, sclera white. NOSE: Clear with pink turbinates. THROAT: No erythema or exudates. NECK: No masses, no JVD, no thyroid enlargement, no adenopathy. CHEST: No chest wall deformity. Symmetrical expansion. LUNGS: Equal air entry with diffuse rhonchi and wheezing, and crackles CVS: Regular rate and rhythm, normal S1 and S2, no gallops, no murmurs, no rubs ABDOMEN: Soft, nontender. No hepatosplenomegaly, normal bowel sounds, no guarding or rigidity. EXTREMITIES: No clubbing, no edema, no cyanosis, 2+ pulses and upper and lower extremities. MUSCULOSKELETAL: Muscle strength and tone normal. SPINE: No scoliosis or deformity SKIN: No rashes CENTRAL NERVOUS SYSTEM: Alert and oriented -3. No focal deficits, tone is normal in all 4 extremities. PSYCHIATRIC: Alert and oriented -3. Appropriate affect. Intact judgment and insight. Results - Laboratory Findings CBC and BMP: 01/19/21 10:15 01/19/21 10:15 PT/INR, D-dimer PT 10.2 sec (9.0-12.0) 01/19/21 10:15 INR 0.9 (<1.2) 01/19/21 10:15 Abnormal lab findings: Abnormal Labs 01/19/21 01/19/21 10:15 10:15 WBC 12.7 H RBC 3.96 L Hgb 12.5 L Hct 36.8 L Neutrophils # 10.6 H Chloride 109 H Glucose 119 H - Diagnostic Findings Chest x-ray: report reviewed, image reviewed Additional studies: EKG results reviewed Assessment and Plan Plan: Assessment: #1. Acute tracheobronchitis and possibility of pneumonia is not excluded and failure of outpatient treatment, COVID-19 has been ruled out #2. Former smoker, however outpatient PFT showed a relatively normal PFT of 2.4 2 L or 94% of predicted #3. HX COVID-19 infection #4. History of systolic CHF status post AICD placement #5. Coronary artery disease status post bypass grafting as well as multiple angioplasties #6. History of obstructive sleep apnea #7. Paroxysmal atrial fibrillation on Eliquis #8. Hypertension #9. Dyslipidemia Plan: Continue azithromycin and Rocephin We'll add IV steroids Continue breathing treatments We'll send a procalcitonin level Continue to follow I performed a history & physical examination of the patient and discussed their management with my nurse practitioner, Maria M Guadalupe. I reviewed the nurse practitioner's note and agree with the documented findings and plan of care. Lung sounds are positive for diminished breath sounds with diffuse rhonchi and wheezes throughout the lung aguilar. The findings and the impression was discussed with the patient. I attest to the documentation by the nurse practitioner. Time with Patient: Greater than 30
[2021-01-19] MEDS: ISOSORBIDE MONONITRATE ER 60 MG TAB.ER.24H PO SCH ×2 (16:26→21:49)
[2021-01-19] MEDS: GABAPENTIN 300 MG CAP PO SCH ×2 (16:30→21:52)
[2021-01-19] MEDS ORDERED: methylPREDNISolone SOD SUCCI 125 MG/2 ML VIAL IV SCH (18:00)
[2021-01-19] MEDS ORDERED: FUROSEMIDE 40 MG TAB PO SCH (21:00)
[2021-01-19] MEDS ORDERED: ATORVASTATIN 80 MG TAB PO SCH (21:00)
[2021-01-19] MEDS: predniSONE 10 MG TAB PO SCH (21:48)
[2021-01-19] MEDS: APIXABAN 5 MG TAB PO SCH (21:48)
[2021-01-19] MEDS: METOPROLOL TARTRATE 25 MG TAB PO SCH (21:49)
[2021-01-19] MEDS: SACUBITRIL/VALSARTAN 24 MG-26 MG TABLET PO SCH (22:25)
[2021-01-20 03:07] VITALS: RESP 18
[2021-01-20] MEDS: IPRATROPIUM-ALBUTEROL 3 ML NEB INHALATION SCH ×2 (07:09→10:50)
[2021-01-20] MEDS ORDERED: PANTOPRAZOLE 40 MG TABLET PO SCH (07:30)
[2021-01-20] MEDS ORDERED: CLOPIDOGREL 75 MG TAB PO SCH (09:00)
[2021-01-20] MEDS ORDERED: POTASSIUM CHLORIDE ER 20 MEQ TAB.ER PO SCH (09:00)
[2021-01-20] MEDS ORDERED: PARoxetine 20 MG TAB PO SCH (09:00)
[2021-01-20] MEDS ORDERED: CHOLECALCIFEROL 25 MCG (1000 IU) TABLET PO SCH (09:00)
[2021-01-20] MEDS: ISOSORBIDE MONONITRATE ER 60 MG TAB.ER.24H PO SCH (09:57)
[2021-01-20] MEDS: APIXABAN 5 MG TAB PO SCH (09:57)
[2021-01-20] MEDS: METOPROLOL TARTRATE 25 MG TAB PO SCH (09:57)
[2021-01-20] MEDS: predniSONE 10 MG TAB PO SCH (09:57)
[2021-01-20] MEDS: GABAPENTIN 300 MG CAP PO SCH (09:58)
[2021-01-20] MEDS: SACUBITRIL/VALSARTAN 24 MG-26 MG TABLET PO SCH (10:15)
[2021-01-20 10:31] LABS: HCT 34.4 % (39.6-50.0); HGB 10.9 g/dL (13.0-17.0); MCH 30.9 pg (27.0-32.0); MCHC 31.7 g/dL (32.0-37.0); MCV 97.5 fL (80.0-97.0); Mean Platelet Volume 9.9 fL (9.5-12.2); Platelet Count 257 X 10*3/uL (140-440); RBC 3.53 X 10*6/uL (4.40-5.60); RDW 14.6 % (11.5-14.5); WBC 7.65 X 10*3/uL (4.50-10.00)
[2021-01-20 11:07] LABS: African American GFR (CKD) 74.1 (60.0-200.0); Anion Gap 9.6 mmol/L (4.00-12.00); BUN/Creat Ratio 16.36 Ratio (12.00-20.00); Calcium 8.9 mg/dL (8.7-10.3); Carbon Dioxide 24.4 mmol/L (21.6-31.8); Potassium 4.2 mmol/L (3.5-5.5)
--- NOTE | 2021-01-20 12:14 | P.PN ---
Subjective Progress Note Date: 01/20/21 On today's evaluation of 01/20/2021, the patient is feeling better. He is less short of breath. Less bronchospastic and last visit compared to yesterday. The patient was taken off the IV Solu-Medrol and given prednisone 10 mg. Patient is on IV Rocephin and oral Zithromax. Sputum samples have been sent and the results are still pending for now. Meanwhile, the patient is feeling rather. Afebrile. Hemodynamically stable. No new complaints otherwise for now. Objective - Vital Signs Vital signs: Vital Signs Temp 97.7 F 01/20/21 08:00 Pulse 72 01/20/21 11:01 Resp 18 01/20/21 08:00 BP 128/55 01/20/21 08:00 Pulse Ox 94 L 01/20/21 08:00 Intake & Output 01/19/21 01/20/21 01/20/21 18:59 06:59 18:59 Intake Total 600 Balance 600 Weight 92.533 kg Intake: Intake, IV Titration 600 Amount Sodium Chloride 0.9% 1, 600 000 ml @ 75 mls/hr IV . [id number] STA Rx#:[id number] Other: Voiding Method Toilet # Voids 2 - Exam GENERAL EXAM: Alert, very pleasant, 80-year-old white male, on room air with pulse ox of 94-95%, and has a congested cough comfortable in no apparent distress. HEAD: Normocephalic/atraumatic. EYES: Normal reaction of pupils, equal size. Conjunctiva pink, sclera white. NOSE: Clear with pink turbinates. THROAT: No erythema or exudates. NECK: No masses, no JVD, no thyroid enlargement, no adenopathy. CHEST: No chest wall deformity. Symmetrical expansion. LUNGS: Equal air entry with diffuse rhonchi and wheezing, and crackles CVS: Regular rate and rhythm, normal S1 and S2, no gallops, no murmurs, no rubs ABDOMEN: Soft, nontender. No hepatosplenomegaly, normal bowel sounds, no gua rding or rigidity. EXTREMITIES: No clubbing, no edema, no cyanosis, 2+ pulses and upper and lower extremities. MUSCULOSKELETAL: Muscle strength and tone normal. SPINE: No scoliosis or deformity SKIN: No rashes CENTRAL NERVOUS SYSTEM: Alert and oriented -3. No focal deficits, tone is normal in all 4 extremities. PSYCHIATRIC: Alert and oriented -3. Appropriate affect. Intact judgment and insight. - Labs CBC & Chem 7: 01/20/21 04:33 01/20/21 04:33 Labs: Abnormal Lab Results - Last 24 Hours (Table) 01/20/21 01/20/21 Range/Units 04:33 04:33 RBC 3.53 L (4.40-5.60) X 10*6/uL Hgb 10.9 L (13.0-17.0) g/dL Hct 34.4 L (39.6-50.0) % MCV 97.5 H (80.0-97.0) fL MCHC 31.7 L (32.0-37.0) g/dL RDW 14.6 H (11.5-14.5) % Absolute Nucleated RBC 0.02 H (0.00-0.00) X 10*3/uL NRBC/100 WBC Diff 0.3 H (0.0-0.0) /100 WBCS Glucose 152 H (70-110) mg/dL Microbiology - Last 24 Hours (Table) 01/19/21 16:07 Gram Stain - Preliminary Sputum Sputum Culture - Preliminary Assessment and Plan Plan: #1. Acute tracheobronchitis and possibility of pneumonia is not excluded and failure of outpatient treatment, COVID-19 has been ruled out #2. Former smoker, however outpatient PFT showed a relatively normal PFT of 2.42 L or 94% of predicted #3. HX COVID-19 infection #4. History of systolic CHF status post AICD placement #5. Coronary artery disease status post bypass grafting as well as multiple an gioplasties #6. History of obstructive sleep apnea #7. Paroxysmal atrial fibrillation on Eliquis #8. Hypertension #9. Dyslipidemia Plan: Clinically improving. Patient is discharged home course of Levaquin and a prednisone burst taper he was also given albuterol HFA to be used 4 times a day [id number]. The patient will be discharged home today to be followed up on outpatient basis.
--- NOTE | 2021-01-20 13:48 | P.DS ---
Providers Date of admission: 01/19/21 13:06 Attending physician: Gustavo Almazan Consults: 01/19/21 13:06 Consult Physician Routine Consulting Provider: Yenny Barth Consult Reason/Comments: dyspnea Do you want consulting provider notified?: Yes Primary care physician: [facility] Course: Patient is pleasant 74-year-old male came in with the complaints of shortness of breath and coughing with yellow sputum production has been going on for colitis patient was seen in urgent care where they did a chest x-ray which showed bilateral infiltrates suspicious for pneumonia and patient was started on his erythromycin. Patient's symptoms continued to get worse because of which are his daughter asked him to go to the hospital patient was tested for Covid 19 at the urgent care facility which was negative. Patient has significant bilateral rhonchi consistent with either severe bronchitis or pneumonia chest x-ray did not show any pneumonia patient does have leukocytosis no fever. Patient was started on Rocephin and azithromycin was subsequently admitted to the hospital. Patient does have history of congestive heart failure with EF around 35% presently not in heart failure exacerbation. IV fluids will be discontinued. Patient did quit smoking many years ago patient does have history of coronary artery disease history of DVT in the past patient does have history of atrial fibrillation unsure why patient is on a low-dose of Eliquis Patient does have history of AICD. 01/20/2021 patient the still has some wheezing with rhonchi improved at this time. Patient will be discharged and levofloxacin and steroids. There is no obvious pneumonia on the chest x-ray that was done yesterday. 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 PHYSICAL EXAMINATION: GENERAL: The patient is alert and oriented x3, not in any acute distress. Well developed, well nourished. HEENT: Pupils are round and equally reacting to light. EOMI. No scleral icterus. No conjunctival pallor. Normocephalic, atraumatic. No pharyngeal erythema. No thyromegaly. CARDIOVASCULAR: S1 and S2 present. No murmurs, rubs, or gallops. PULMONARY: Mild expiratory wheezing without any significantly rhonchi today ABDOMEN: Soft, nontender, nondistended, normoactive bowel sounds. No palpable organomegaly. MUSCULOSKELETAL: No joint swelling or deformity. EXTREMITIES: No cyanosis, clubbing, or pedal edema. NEUROLOGICAL: Gross neurological examination did not reveal any focal deficits. SKIN: No rashes. Assessment and Plan Plan: -Cough, shortness of breath: Secondary to severe tracheobronchitis patient failed outpatient therapy for pneumonia. No obvious pneumonia on the chest x- ray that was done here. Patient will be continued on antibiotics. Pulmonary will evaluate the patient. Patient will be discharged on levofloxacin no clear evidence of pneumonia a very severe tracheobronchitis -COPD with acute exacerbation -Congestive heart failure chronic systolic dysfunction EF of around 30-35% presently not in acute exacerbation patient will be resumed on home doses of oral Lasix. I -Atrial fibrillation paroxysmal A. fib patient will be resumed on Eliquis but will increase the dose to 5 mg twice a day -Coronary artery disease -History of DVT in the past -Gastroesophageal reflux disease -Hypertension -Sleep apnea -History of prostate cancer in remission at this time -History of AICD and CABG in the past Plan - Discharge Summary Discharge Rx Participant: No New Discharge Prescriptions: New Levofloxacin [Levaquin] 750 mg PO DAILY 7 Days #7 tab Albuterol Inhaler [Ventolin Hfa Inhaler] 2 puff INHALATION RT-QID 30 Days #1 puff predniSONE 10 mg PO DIRECTED 16 Days #40 tab No Action Clopidogrel [Plavix] 75 mg PO DAILY Furosemide [Lasix] 40 mg PO MOWEFR@2100 Furosemide [Lasix] 80 mg PO MOWEFR@0900 Nitroglycerin Sl Tabs [Nitrostat] 0.4 mg SUBLINGUAL Q5M PRN PRN Reason: Chest Pain Pantoprazole [Protonix] 40 mg PO AC-BRKFST Rosuvastatin Calcium [Crestor] 40 mg PO HS Potassium Chloride [Klor-Con 20] 20 meq PO DAILY Apixaban [Eliquis] 2.5 mg PO BID Sacubitril/Valsartan [Entresto 24 mg-26 mg Tablet] 1 tab PO BID Metoprolol Tartrate 25 mg PO BID Gabapentin 600 mg PO TID Ferrous Sulfate [Feosol] 325 mg PO DAILY Cholecalciferol [Vitamin D3 (25 Mcg = 1000 Iu)] 50 mcg PO DAILY Isosorbide Mononitrate ER [Imdur] 60 mg PO TID Fluticasone Nasal Lathrop [Flonase Nasal Lathrop] 1 spray EA NOSTRIL BID PRN PRN Reason: Cold Symptoms PARoxetine HCL 20 mg PO DAILY Carboxymethylcellulose Sodium [Refresh Tears] 1 drop BOTH EYES QID PRN PRN Reason: DRY EYES calcitrioL [Calcitriol] 0.25 mcg PO MOWEFR Azithromycin [Zithromax] 500 mg PO DAILY Benzonatate [Tessalon Perles] 100 mg PO TID PRN PRN Reason: Cough predniSONE 10 mg PO BID Discharge Medication List Clopidogrel [Plavix] 75 mg PO DAILY 11/08/16 [History] Furosemide [Lasix] 40 mg PO MOWEFR@2100 11/08/16 [History] Furosemide [Lasix] 80 mg PO MOWEFR@0900 11/08/16 [History] Nitroglycerin Sl Tabs [Nitrostat] 0.4 mg SUBLINGUAL Q5M PRN 11/08/16 [History] Pantoprazole [Protonix] 40 mg PO AC-BRKFST 11/08/16 [History] Rosuvastatin Calcium [Crestor] 40 mg PO HS 11/08/16 [History] Apixaban [Eliquis] 2.5 mg PO BID 08/11/17 [History] Potassium Chloride [Klor-Con 20] 20 meq PO DAILY 08/11/17 [History] Sacubitril/Valsartan [Entresto 24 mg-26 mg Tablet] 1 tab PO BID 08/11/17 [History] Gabapentin 600 mg PO TID 07/05/18 [History] Metoprolol Tartrate 25 mg PO BID 07/05/18 [History] Azithromycin [Zithromax] 500 mg PO DAILY 01/19/21 [History] Benzonatate [Tessalon Perles] 100 mg PO TID PRN 01/19/21 [History] Carboxymethylcellulose Sodium [Refresh Tears] 1 drop BOTH EYES QID PRN 01/19/21 [History] Cholecalciferol [Vitamin D3 (25 Mcg = 1000 Iu)] 50 mcg PO DAILY 01/19/21 [History] Ferrous Sulfate [Feosol] 325 mg PO DAILY 01/19/21 [History] Fluticasone Nasal Lathrop [Flonase Nasal Lathrop] 1 spray EA NOSTRIL BID PRN 01/19/21 [History] Isosorbide Mononitrate ER [Imdur] 60 mg PO TID 01/19/21 [History] PARoxetine HCL 20 mg PO DAILY 01/19/21 [History] calcitrioL [Calcitriol] 0.25 mcg PO MOWEFR 01/19/21 [History] predniSONE 10 mg PO BID 01/19/21 [History] Albuterol Inhaler [Ventolin Hfa Inhaler] 2 puff INHALATION RT-QID 30 Days #1 puff 01/20/21 [Rx] Levofloxacin [Levaquin] 750 mg PO DAILY 7 Days #7 tab 01/20/21 [Rx] predniSONE 10 mg PO DIRECTED 16 Days #40 tab 01/20/21 [Rx] Follow up Appointment(s)/Referral(s): Baldomero Zuniga DO [Doctor of Osteopathic Medicine] - 1-2 days Yenny Barth MD [STAFF PHYSICIAN] - 1 Week Activity/Diet/Wound Care/Special Instructions: Patient needs printed Rx's at discharge for new meds
[2021-01-20 14:44] VITALS: BP 124/56; PULSE 70; TEMP 97.9
[2021-01-20] MEDS ORDERED: AZITHROMYCIN 500 MG TAB PO SCH (16:00)
[2021-01-21] MEDS ORDERED: FUROSEMIDE 80 MG TAB PO SCH (09:00)
== END 2021-01-20 15:22 | disposition home or self-care (01) | DRG 190 ==
LOC: EC 09:43 → 4SSUR 13:06
PROVIDERS: ADMIT Internal Medicine; ATTEND Internal Medicine
DX: J44.0 Chronic obstructive pulmonary disease with (acute) lower respiratory infection (principal); J18.9 Pneumonia, unspecified organism; I50.22 Chronic systolic (congestive) heart failure; I11.0 Hypertensive heart disease with heart failure; I48.0 Paroxysmal atrial fibrillation; J20.9 Acute bronchitis, unspecified; Z20.822 Contact with and (suspected) exposure to COVID-19; I25.10 Atherosclerotic heart disease of native coronary artery without angina pectoris; R91.1 Solitary pulmonary nodule; K21.9 Gastro-esophageal reflux disease without esophagitis; E78.5 Hyperlipidemia, unspecified; G47.33 Obstructive sleep apnea (adult) (pediatric); I25.2 Old myocardial infarction; Z95.1 Presence of aortocoronary bypass graft; Z95.810 Presence of automatic (implantable) cardiac defibrillator; Z98.890 Other specified postprocedural states; Z90.79 Acquired absence of other genital organ(s); Z95.5 Presence of coronary angioplasty implant and graft; Z96.653 Presence of artificial knee joint, bilateral; Z88.0 Allergy status to penicillin; Z88.8 Allergy status to other drugs, medicaments and biological substances; Z79.82 Long term (current) use of aspirin; Z79.02 Long term (current) use of antithrombotics/antiplatelets; Z79.01 Long term (current) use of anticoagulants; Z79.899 Other long term (current) drug therapy; Z86.16 Personal history of COVID-19; Z87.891 Personal history of nicotine dependence; Z86.718 Personal history of other venous thrombosis and embolism; Z86.010 Personal history of colon polyps; Z87.19 Personal history of other diseases of the digestive system; Z85.46 Personal history of malignant neoplasm of prostate; Z82.49 Family history of ischemic heart disease and other diseases of the circulatory system
CPT/HCPCS: 36415; 71046; 80048; 80053; 83605; 83880; 84145; 85025; 85027; 85610; 85730; 87040; 87070; 87205; 87635; 93005; 94640; 96360; 96361; 99285

== ENCOUNTER → 2021-03-31 | Outpatient (CLI) | payer OTHER ==
--- NOTE | 2021-03-31 15:50 | US ---
EXAMINATION TYPE: US extremity nonvasc mass LT DATE OF EXAM: 03/31/2021 COMPARISON: NONE CLINICAL HISTORY: M[age] soft tissue disorders. Palpable noted by patient x 1 year at left posterior elbow and 2nd one noted at posterior forearm x 2 days. Patient has back lipoma. US Left Posterior mid arm Palpable #1: solid hyperechoic mass is seen = 1.8 x 2.1 x 0.5cm. Second pos terior forearm palpable is noted as mixed oval hypoechoic mass = 0.6 x 0.3 x 0.3cm. IMPRESSION: 1. 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 2. Posterior forearm mass is nonspecific and measures 6 mm and is too small to characterize. Correlat e clinically. Both findings could be correlated with MRI as clinically warranted.
== END | disposition home or self-care (01) ==
LOC: RADUSWWP 15:18
DX: R22.30 Localized swelling, mass and lump, unspecified upper limb (principal); M79.89 Other specified soft tissue disorders

== ENCOUNTER 2022-02-04 11:23 | Inpatient (IN) | payer OTHER, MEDICARE ==
--- NOTE | 2022-02-04 12:18 | ED ---
General Adult HPI - General Chief complaint: Neuro Symptoms/Deficit Stated complaint: Face numbness/headache Time Seen by Provider: 02/04/22 12:02 Source: patient Mode of arrival: ambulatory Limitations: no limitations - History of Present Illness Initial comments: Dictation was produced using [employer] dictation software. please excuse any grammatical, word or spelling errors. Chief Complaint: 81-year-old male multiple comorbidities referred to the emergency department forearm [facility] for evaluation of cerebrovascular accident History of Present Illness: Patient is 81-year-old male he was sent here from the [place] [facility]. Patient reports that he was sent here because they were concerned that he was having a CVA. She has multiple comorbidities. He does take anticoagulation medications. Patient reports that 3 weeks ago he had a symptom of garbled speech and left lower facial numbness. He describes a numbness as around his left lips. The same time he noticed that his speech did appear to be dysarthric. States that he did not seek medical attention right away. Symptoms improved over the next 2 days until today he was at the [place] clinic when his symptoms all of a sudden reappeared. Patient does present with documentation from the [place] clinic that states that he was evaluated around that time when his symptoms began and his symptoms are not noticeable. Patient denies any association of symptoms with extremities. He does complain of a mild sharp pain over his left lateral evangelical. Patient denies any vision changes. Symptoms do not worsen with mastication. The ROS documented in this emergency department record has been reviewed and confirmed by me. Those systems with pertinent positive or negative responses have been documented in the HPI. All other systems are other negative and/or noncontributory. PHYSICAL EXAM: General Impression: Alert and oriented x3, not in acute distress HEENT: Normocephalic atraumatic, extra-ocular movements intact, pupils equal and reactive to light bilaterally, mucous membranes moist. Cardiovascular: Heart regular rate and rhythm Chest: Able to complete full sentences, no retractions, no tachypnea Abdomen: abdomen soft, non-tender, non-distended, no organomegaly Musculoskeletal: Pulses present and equal in all extremities, no peripheral edema Motor: no focal deficits noted Neurological: CN II-XII grossly intact, no focal motor or sensory deficits noted, NIH of 1 for reported facial sensory deficit Skin: Intact with no visualized rashes Psych: Normal affect and mood ED course: 81-year-old male presents to the emergency department from [facility] for concerns of cerebrovascular accident. Vital signs upon arrival are within acceptable limits. Patient has a NIH 1 for subjective paresthesias to the left lower face states involves lips. No other appreciable or reported deficit. Laboratory evaluation obtained. CBC, coag panel, metabolic panel is unremarkable. Computed tomography scan of the brain shows no acute processes. Patient reevaluated at the bedside found to be stable medical condition. Tolerating oral intake without any acute issues. Patient states she is still having persistent left lower facial numbness. Disposition options were discussed. Patient is agreeable with admission with consultation to neurology. Patient given aspirin. [facility]. EKG interpretation: Ventricular rate 70, paced rhythm, [place] interval 262, QS 125, QTC 4:15. No [place] prolongation, no QTC prolongation, no ST or T-wave changes noted. Overall, this EKG is unremarkable - Related Data Home Medications Medication Instructions Recorded Confirmed Clopidogrel [Plavix] 75 mg PO PC-LUNCH 11/08/16 02/04/22 Furosemide [Lasix] 80 mg PO MOWEFR 11/08/16 02/04/22 Pantoprazole [Protonix] 40 mg PO DAILY 11/08/16 02/04/22 Rosuvastatin Calcium [Crestor] 40 mg PO HS 11/08/16 02/04/22 Apixaban [Eliquis] 2.5 mg PO BID 08/11/17 02/04/22 Potassium Chloride [Klor-Con 20] 20 meq PO DAILY 08/11/17 02/04/22 Metoprolol Tartrate 25 mg PO BID 07/05/18 02/04/22 Carboxymethylcellulose Sodium 1 drop BOTH EYES QID PRN 01/19/21 02/04/22 [Refresh Tears] Cholecalciferol [Vitamin D3 (25 50 mcg PO DAILY 01/19/21 02/04/22 Mcg = 1000 Iu)] Ferrous Sulfate [Iron (65 MG 325 mg PO DAILY 01/19/21 02/04/22 Elemental)] Isosorbide Mononitrate ER [Imdur] 60 mg PO TID 01/19/21 02/04/22 PARoxetine HCL 20 mg PO DAILY 01/19/21 02/04/22 calcitrioL [Calcitriol] 0.25 mcg PO MOWEFR 01/19/21 02/04/22 Artificial Tears Ointment 1 gm OPHTHALMIC HS PRN 10/20/21 02/04/22 [Lubrifresh Pm Ointment] Gabapentin 300 mg PO TID 10/20/21 02/04/22 Latanoprost/Pf [Latanoprost 0.005% 1 drop BOTH EYES HS 10/20/21 02/04/22 Eye Drop] Sacubitril/Valsartan [Entresto 49 1 tab PO BID 10/21/21 02/04/22 mg-51 mg Tablet] Ranolazine [Ranexa] 500 mg PO BID 02/04/22 02/04/22 Allergies Allergy/AdvReac Type Severity Reaction Status Date / Time Iodinated Contrast Media Allergy Rash/Hives Verified 02/04/22 13:18 iodine Allergy Rash/Hives Verified 02/04/22 13:18 lisinopril Allergy Unknown Verified 02/04/22 13:18 Penicillins Allergy Rash/Hives Verified 02/04/22 13:18 All Over hydromorphone [From Dilaudid] AdvReac Nightmares Verified 02/04/22 13:18 Review of Systems ROS Statement: Those systems with pertinent positive or pertinent negative responses have been documented in the HPI. ROS Other: All systems not noted in ROS Statement are negative. Past Medical History Past Medical History: Atrial Fibrillation, Coronary Artery Disease (CAD), Cancer, Heart Failure, Deep Vein Thrombosis (DVT), GERD/Reflux, Hyperlipidemia, Hypertension, Myocardial Infarction (OK), Osteoarthritis (OA), Sleep Apnea /CPAP/BIPAP Additional Past Medical History / Comment(s): R lung stable pulmonary nodule, internal bleed/went unresponsive/transfused, RUPINDER/did not tolerate CPap, DVT R leg, diverticular disease/polyps, prostate cancer with biopsies/then cancer was gone, arthritis in multiple joints, 2 back vertebral fractures, chronic back pain Last Myocardial Infarction Date:: 1989 History of Any Multi-Drug Resistant Organisms: None Reported Past Surgical History: AICD, Appendectomy, Coronary Bypass/CABG, Heart Catheterization, Heart Catheterization With Stent, Joint Replacement, Orthopedic Surgery, Prostate Surgery Additional Past Surgical History / Comment(s): 2005 AICD (Scandid) with 2 battery replacements/last battery change was in 2019, PCI/multiple stents, coronary angioplasties, TURP, prostate biopsies, colonoscopy, bilateral total knee arthroplasties. Patient states 40+ stents, cannot have anymore stents placed. Per patients eye doctor, possible plaque on optic nerve post ballooning procedure. Past Anesthesia/Blood Transfusion Reactions: No Reported Reaction Additional Past Anesthesia/Blood Transfusion Reaction / Comment(s): Pt has had blood transfusions without reaction. Date of Last Stent Placement:: 2019 Type of Cardiac Device: AICD Device Placement Date:: 2005 Past Psychological History: No Psychological Hx Reported, Anxiety Smoking Status: Former smoker Past Alcohol Use History: None Reported Past Drug Use History: None Reported - Past Family History Father Family Medical History: Myocardial Infarction (OK) Additional Family Medical History / Comment(s): Father of a OK at the age of 63yrs. Mother Additional Family Medical History / Comment(s): Mother in bed. She was a heavy smoker. General Exam Limitations: no limitations Course Vital Signs 02/04/22 02/04/22 11:50 12:55 Temperature 98.0 F Pulse Rate 71 72 Respiratory 18 18 Rate Blood Pressure 118/71 120/64 O2 Sat by Pulse 97 Oximetry Medical Decision Making - Lab Data Result diagrams: 02/04/22 13:02 02/04/22 13:02 Lab Results 02/04/22 02/04/22 02/04/22 Range/Units 13:02 13:02 13:02 WBC 5.6 (3.8-10.6) k/uL RBC 3.76 L (4.30-5.90) m/uL Hgb 12.3 L (13.0-17.5) gm/dL Hct 36.8 L (39.0-53.0) % MCV 98.0 (80.0-100.0) fL MCH 32.8 (25.0-35.0) pg MCHC 33.4 (31.0-37.0) g/dL RDW 14.9 (11.5-15.5) % Plt Count 199 (150-450) k/uL MPV 7.3 Neutrophils % 64 % Lymphocytes % 21 % Monocytes % 8 % Eosinophils % 3 % Basophils % 1 % Neutrophils # 3.6 (1.3-7.7) k/uL Lymphocytes # 1.2 (1.0-4.8) k/uL Monocytes # 0.5 (0-1.0) k/uL Eosinophils # 0.2 (0-0.7) k/uL Basophils # 0.1 (0-0.2) k/uL PT 11.8 (9.0-12.0) sec INR 1.1 (<1.2) APTT 24.1 (22.0-30.0) sec Sodium 140 (137-145) mmol/L Potassium 3.7 (3.5-5.1) mmol/L Chloride 106 (98-107) mmol/L Carbon Dioxide 28 (22-30) mmol/L Anion Gap 6 mmol/L BUN 22 H (9-20) mg/dL Creatinine 1.29 H (0.66-1.25) mg/dL Est GFR (CKD-EPI)AfAm 61 (>60 ml/min/1.73 sqM) Est GFR (CKD-EPI)NonAf 53 (>60 ml/min/1.73 sqM) Glucose 95 (74-99) mg/dL Calcium 9.0 (8.4-10.2) mg/dL Magnesium 2.0 (1.6-2.3) mg/dL Disposition Clinical Impression: Cerebrovascular accident (CVA) Disposition: ADMITTED IP TO THIS HOSP Condition: Fair Referrals: [facility],Clinic [Primary Care Provider] - 1-2 days Decision Time: 13:49
--- NOTE | 2022-02-04 13:03 | CT ---
EXAMINATION TYPE: CT brain wo con DATE OF EXAM: 02/04/2022 COMPARISON: CT dated 10/20/2021 HISTORY: Left lower facial numbness CT DLP: 1078.4 mGycm Automated exposure control for dose reduction was used. TECHNIQUE: CT scan of the brain is performed without IV contrast administration. FINDINGS: Bilateral cerebral white matter hypodensities, possibly representing chronic microvascular ischemic c hanges, however otherwise white matter abnormality cannot be excluded. Scattered arterial atheroscler otic calcifications. No acute intracranial hemorrhage. No gross acute cortical infarct. No midline shift, herniation or ve ntriculomegaly. Unremarkable basal cisterns, sella and CP angles. No gross space-occupying lesion, vasogenic edema or mass effect. Unremarkable orbits. Right maxillary sinus polyp/retention cyst. Mild mucosal thickening of the ethmo id air cells. Clear mastoid air cells. Unremarkable calvarial bones. IMPRESSION: No acute intracranial hemorrhage or gross acute cortical infarct. Bilateral cerebral white matter hypodensities, possibly representing chronic ischemic changes however other white matter abnormality cannot be excluded. Further MRI assessment can be considered if clinically required.
[2022-02-04 13:11] LABS: Basophils # (A) 0.1 k/uL (0-0.2); Basophils % (A) 1 %; Eosinophils # (A) 0.2 k/uL (0-0.7); Eosinophils % (A) 3 %; HCT 36.8 % (39.0-53.0); HGB 12.3 gm/dL (13.0-17.5); Lymphocytes # (A) 1.2 k/uL (1.0-4.8); Lymphocytes % (A) 21 %; MCH 32.8 pg (25.0-35.0); MCHC 33.4 g/dL (31.0-37.0); Mean Platelet Volume 7.3; Monocytes # (A) 0.5 k/uL (0-1.0); Monocytes % (A) 8 %; Neutrophils # (A) 3.6 k/uL (1.3-7.7); Neutrophils % (A) 64 %; Platelet Count 199 k/uL (150-450); RBC 3.76 m/uL (4.30-5.90); RDW 14.9 % (11.5-15.5); WBC 5.6 k/uL (3.8-10.6)
[2022-02-04 13:22] LABS: INR 1.1 (<1.2); Partial Thromboplastin Time 24.1 sec (22.0-30.0); Prothrombin Time 11.8 sec (9.0-12.0)
[2022-02-04 13:24] LABS: Potassium 3.7 mmol/L (3.5-5.1)
[2022-02-04] MEDS ORDERED: NALOXONE 0.4 MG/ML 1 ML VIAL IV PRN (13:47)
[2022-02-04] MEDS ORDERED: ONDANSETRON 4 MG/2 ML VIAL IVP PRN (13:47)
[2022-02-04] MEDS ORDERED: ASPIRIN 81 MG PO STA (13:48)
[2022-02-04] MEDS: SODIUM CHLORIDE 0.9% 1,000 ML IV SCH (14:00)
[2022-02-04] MEDS ORDERED: ARTIFICIAL TEARS OINTMENT 3.5 GM TUBE BOTH EYES PRN (17:45)
[2022-02-04] MEDS ORDERED: ARTIFICIAL TEARS-HYPROMELLOSE DROPS 15 ML BTL BOTH EYES PRN (17:45)
--- NOTE | 2022-02-04 19:01 | HP ---
HISTORY AND PHYSICAL DATE OF SERVICE: 02/04/2022 CHIEF COMPLAINTS: Weakness and numbness of the left side of the face. HISTORY OF PRESENT ILLNESS: This 81-year-old gentleman with a past medical history of multiple medical issues, including history of fibrillation CAD, DVT, was complaining of weakness and numbness of the left lower side of the face. Stroke was suspected. Patient was taken to [facility] and admitted for further evaluation and treatment. Three weeks ago the patient had facial numbness and garbled speech also. There is no history of any fever, rigors, chills. PAST MEDICAL HISTORY: Reviewed. It includes CAD and atrial fibrillation. MEDICATIONS: Home medications are again reviewed which include gabapentin. Doses and the rest of the medications are noted. ALLERGIES: ALLERGIES INCLUDE IODINE. FAMILY HISTORY: {Dictation ends abruptly.} BRITTNY / BRIDGETTN: [id number] /
[2022-02-04] MEDS ORDERED: LATANOPROST 0.005% OPHTH DROPS 2.5 ML BTL BOTH EYES SCH (21:00)
[2022-02-04] MEDS ORDERED: ATORVASTATIN 80 MG TAB PO SCH (21:00)
[2022-02-04] MEDS: APIXABAN 2.5 MG TABLET PO SCH (21:24)
[2022-02-04] MEDS: SACUBITRIL/VALSARTAN 49 MG-51 MG TABLET PO SCH (21:24)
[2022-02-04] MEDS: GABAPENTIN 300 MG CAP PO SCH (21:24)
[2022-02-04] MEDS: RANOLAZINE 500 MG TAB.ER.12H PO SCH (21:24)
[2022-02-04] MEDS: METOPROLOL TARTRATE 25 MG TAB PO SCH (21:24)
[2022-02-04] MEDS: ISOSORBIDE MONONITRATE ER 60 MG TAB.ER.24H PO SCH (21:24)
[2022-02-05] MEDS ORDERED: PANTOPRAZOLE 40 MG TABLET PO SCH (07:30)
[2022-02-05 08:53] VITALS: RESP 18; TEMP 98
[2022-02-05] MEDS: RANOLAZINE 500 MG TAB.ER.12H PO SCH (08:53)
[2022-02-05] MEDS: APIXABAN 2.5 MG TABLET PO SCH (08:54)
[2022-02-05] MEDS: METOPROLOL TARTRATE 25 MG TAB PO SCH (08:54)
[2022-02-05] MEDS: ISOSORBIDE MONONITRATE ER 60 MG TAB.ER.24H PO SCH ×2 (08:54→16:46)
[2022-02-05] MEDS: GABAPENTIN 300 MG CAP PO SCH ×2 (08:54→16:46)
[2022-02-05] MEDS ORDERED: FERROUS SULFATE 325 MG TAB PO SCH (09:00)
[2022-02-05] MEDS ORDERED: POTASSIUM CHLORIDE ER 20 MEQ TAB.ER PO SCH (09:00)
[2022-02-05] MEDS ORDERED: CHOLECALCIFEROL 25 MCG (1000 IU) TABLET PO SCH (09:00)
[2022-02-05] MEDS ORDERED: PARoxetine 20 MG TAB PO SCH (09:00)
[2022-02-05] MEDS: SACUBITRIL/VALSARTAN 49 MG-51 MG TABLET PO SCH (09:01)
[2022-02-05 11:37] LABS: Basophils % (A) 1 %; Eosinophils # (A) 0.2 k/uL (0-0.7); Eosinophils % (A) 4 %; HCT 38.6 % (39.0-53.0); HGB 12.9 gm/dL (13.0-17.5); Lymphocytes % (A) 21 %; MCH 33.2 pg (25.0-35.0); MCHC 33.5 g/dL (31.0-37.0); MCV 99.1 fL (80.0-100.0); Mean Platelet Volume 8.3; Monocytes # (A) 0.4 k/uL (0-1.0); Monocytes % (A) 8 %; Neutrophils # (A) 3.2 k/uL (1.3-7.7); Neutrophils % (A) 65 %; Platelet Count 192 k/uL (150-450); RBC 3.89 m/uL (4.30-5.90); RDW 14.7 % (11.5-15.5)
[2022-02-05 11:51] LABS: Calcium 8.9 mg/dL (8.4-10.2); Potassium 4.3 mmol/L (3.5-5.1); Total Bilirubin 0.7 mg/dL (0.2-1.3); Total Protein 6.2 g/dL (6.3-8.2)
--- NOTE | 2022-02-05 12:14 | P.CNNES ---
History of Present Illness Consult date: 02/04/22 Requesting physician: Jayy Boucher Reason for Consult: Lower facial numbness History of Present Illness: Patient is a 81-year-old left-handed male came to the hospital today at 11:23 AM for episode of left facial paresthesias. Patient states that about 3 weeks ago he developed pain in the left mu-ism, then he noticed tingling sensation in the left cheek region. He also noticed some speech difficulty, " hard forming words". He also noticed numbness of the left side of the lips. It came on strongest, then gradually faded away completely in 2 days. He did not seek any medical attention. Patient states that yesterday he had yearly physical with his primary physician, when he developed numbness of the left side of the lips and the cheek, therefore he was recommended to go to the ER. Vital signs on arrival blood pressure 118/71 pulse is [address] head showed no acute intracranial hemorrhage or mass. Bilateral cerebral white matter hypodensities, possibly representing chronic ischemic changes, however other white matter abnormality cannot be excluded. I personally reviewed CT head, reveals evidence of mild small vessel ischemic disease. No acute process. EKG shows electronic atrial pacemaker. At present patient states that he has slight numbness of the left cheek, which comes and goes all day. He feels his speech is "a little off" slightly slurred. Patient states the doctor did not notice any slurred speech but he feels it. He has some pain in the left mu-ism earlier but gone now. He denies any problems with balance or any symptoms in the upper or lower extremities. No problem with the vision like loss of vision, although he feels sometimes his eyes "cross the words in the last couple weeks. Patient was recently seen by Dr. Shantanu Phan on 10/21/2021 for 5 days history of intermittent left facial pain. Patient does have history of atrial fibrillation, was on Eliquis 2.5 mg twice a day. Patient also on Plavix 75 mg daily, Crestor 40 mg, gabapentin 300 mg 3 times a day. Patient has smoked one pipe per day for 20 years, quit in 1989. He quit alcohol 4 years ago, was not a heavy drinker. Denies hypertension diabetes. He does have a pacemaker defibrillator. Patient is currently taking Plavix, Eliquis and Crestor. Review of Systems As mentioned above in detail. All other 14 points appears systems reviewed, unremarkable. Past Medical History Past Medical History: Atrial Fibrillation, Coronary Artery Disease (CAD), Cancer, Heart Failure, Deep Vein Thrombosis (DVT), GERD/Reflux, Hyperlipidemia, Hypertension, Myocardial Infarction (NE), Osteoarthritis (OA), Sleep Apnea/CP AP/BIPAP Additional Past Medical History / Comment(s): R lung stable pulmonary nodule, internal bleed/went unresponsive/transfused, RUPINDER/did not tolerate CPap, DVT R leg, diverticular disease/polyps, prostate cancer with biopsies/then cancer was gone, arthritis in multiple joints, 2 back vertebral fractures, chronic back pain Last Myocardial Infarction Date:: 1989 History of Any Multi-Drug Resistant Organisms: None Reported Past Surgical History: AICD, Appendectomy, Coronary Bypass/CABG, Heart Ca theterization, Heart Catheterization With Stent, Joint Replacement, Orthopedic Surgery, Prostate Surgery Additional Past Surgical History / Comment(s): 2005 AICD ([employer]) with 2 battery replacements/last battery change was in 2019, PCI/multiple stents, coronary angioplasties, TURP, prostate biopsies, colonoscopy, bilateral total knee arthroplasties. Patient states 40+ stents, cannot have anymore stents placed. Per patients eye doctor, possible plaque on optic nerve post ballooning procedure. Past Anesthesia/Blood Transfusion Reactions: No Reported Reaction Additional Past Anesthesia/Blood Transfusion Reaction / Comment(s): Pt has had blood transfusions without reaction. Date of Last Stent Placement:: 2019 Type of Cardiac Device: AICD Device Placement Date:: 2005 Past Psychological History: No Psychological Hx Reported, Anxiety Smoking Status: Former smoker Past Alcohol Use History: None Reported Past Drug Use History: None Reported - Past Family History Father Family Medical History: Myocardial Infarction (NE) Additional Family Medical History / Comment(s): Father of a NE at the age of 63yrs. Mother Additional Family Medical History / Comment(s): Mother in bed. She was a heavy smoker. Brother(s) Family Medical History: Cancer Additional Family Medical History / Comment(s): of metastatic pancreatic cancer Medications and Allergies Home Medications Medication Instructions Recorded Confirmed Type Clopidogrel [Plavix] 75 mg PO PC-LUNCH 11/08/16 02/04/22 History Furosemide [Lasix] 80 mg PO MOWEFR 11/08/16 02/04/22 History Pantoprazole [Protonix] 40 mg PO DAILY 11/08/16 02/04/22 History Rosuvastatin Calcium [Crestor] 40 mg PO HS 11/08/16 02/04/22 History Apixaban [Eliquis] 2.5 mg PO BID 08/11/17 02/04/22 History Potassium Chloride [Klor-Con 20] 20 meq PO DAILY 08/11/17 02/04/22 History Metoprolol Tartrate 25 mg PO BID 07/05/18 02/04/22 History Carboxymethylcellulose Sodium 1 drop BOTH EYES QID PRN 01/19/21 02/04/22 History [Refresh Tears] Cholecalciferol [Vitamin D3 (25 50 mcg PO DAILY 01/19/21 02/04/22 History Mcg = 1000 Iu)] Ferrous Sulfate [Iron (65 MG 325 mg PO DAILY 01/19/21 02/04/22 History Elemental)] Isosorbide Mononitrate ER [Imdur] 60 mg PO TID 01/19/21 02/04/22 History PARoxetine HCL 20 mg PO DAILY 01/19/21 02/04/22 History calcitrioL [Calcitriol] 0.25 mcg PO MOWEFR 01/19/21 02/04/22 History Artificial Tears Ointment 1 gm OPHTHALMIC HS PRN 10/20/21 02/04/22 History [Lubrifresh Pm Ointment] Gabapentin 300 mg PO TID 10/20/21 02/04/22 History Latanoprost/Pf [Latanoprost 0.005% 1 drop BOTH EYES HS 10/20/21 02/04/22 History Eye Drop] Sacubitril/Valsartan [Entresto 49 1 tab PO BID 10/21/21 02/04/22 History mg-51 mg Tablet] Ranolazine [Ranexa] 500 mg PO BID 02/04/22 02/04/22 History Allergies Allergy/AdvReac Type Severity Reaction Status Date / Time Iodinated Contrast Media Allergy Rash/Hives Verified 02/04/22 13:18 iodine Allergy Rash/Hives Verified 02/04/22 13:18 lisinopril Allergy Unknown Verified 02/04/22 13:18 Penicillins Allergy Rash/Hives Verified 02/04/22 13:18 All Over hydromorphone [From Dilaudid] AdvReac Nightmares Verified 02/04/22 13:18 Physical Examination - Vital Signs Vital Signs: Vital Signs Temp Pulse Resp BP Pulse Ox 02/04/22 15:42 73 18 116/79 96 02/04/22 14:00 70 18 118/62 97 02/04/22 12:55 72 18 120/64 97 02/04/22 11:50 98.0 F 71 18 118/71 Intake and Output 02/04/22 02/04/22 02/04/22 06:59 14:59 22:59 Other: Weight 91.626 kg Patient is an elderly male, in no acute distress. Patient is alert awake oriented to time place and person. Speech and language functions are normal. No aphasia or dysarthria, patient can name and repeat very well. Attention, concentration and fund of knowledge is adequate. On cranial examination, pupils are equal, round and reacting to light, visual aguilar are full on confrontation, with no loss of vision on double simultaneous depression. His extraocular muscles are intact with no nystagmus. Face is s ymmetric, tongue protrudes to the midline. Palatal elevation and sensation normal, hearing and shoulder shrug normal, facial sensation normal. Shoulder shrug normal. On muscle strength testing, there is no pronator drift and the strength is normal in arms and legs distally and proximally. Deep tendon reflexes are symmetric, trace in the upper limbs, 0 at the knees, trace ankles and plantars downgoing bilaterally. Sensory to touch is equal with no neglect. Cerebellar function showed no ataxia for [id number] testing. No dysdiadochokinesia. Tone and bulk of muscles normal. Gait normal. On general examination, there is no carotid bruit or murmur, S1-S2 audible. Abdomen is soft nontender. Chest is clear. Peripheral pulses are present. No edema. Results - Laboratory Findings CBC and BMP: 02/05/22 11:24 02/04/22 13:02 Abnormal Lab Findings: Abnormal Labs 02/04/22 02/04/22 13:02 13:02 RBC 3.76 L Hgb 12.3 L Hct 36.8 L BUN 22 H Creatinine 1.29 H Assessment and Plan Assessment: * Left facial paresthesias, with some speech difficulty, rule out TIAs. Left cheek paresthesias could be peripheral, but would not explain the speech difficulty. * Atrial fibrillation, on Eliquis * CAD status post CABG * Heart failure * Pacemaker * History of DVT * Hypertension * Sleep apnea Plan: * Patient's symptoms are suggestive of TIAs. I discussed with pharmacist. Patient should be on Eliquis 5 mg twice a day instead of 2.5 mg twice a day dose. I would recommend increasing the dose of Eliquis to 5 mg twice a day. Continue Plavix 75 mg daily, if indicated from cardiac standpoint. * 2-D echo from 10/21/2021 revealed pacer wire seen in RV and RA. Left ventricle is mildly dilated, overall left ventricular systolic function is moderate to severely impaired with EF between 30-35%. Mid to basal inferior lateral wall is hypokinetic. * CTA of head and neck from 10/20/2021 was normal. * Hemoglobin A1c 5.5 on 10/20/2021 * Lipid panel with cholesterol 170, LDL 93, HDL 62 and triglycerides 69. Continue Crestor 40 mg. * B12 446. TSH normal. * Suggest follow-up with neurologist as an outpatient. Neurologically clear for discharge.
[2022-02-05] MEDS: SODIUM CHLORIDE 0.9% 1,000 ML IV SCH (14:37)
[2022-02-05] MEDS ORDERED: APIXABAN 2.5 MG TABLET PO STA (14:37)
[2022-02-05 16:44] VITALS: BP 116/73; PULSE 72
--- NOTE | 2022-02-05 18:38 | HP ---
HISTORY AND PHYSICAL ADDENDUM: FAMILY HISTORY: History of myocardial infarction. SOCIAL HISTORY: Previous smoker. REVIEW OF SYMPTOMS: 14 point review of systems negative except as mentioned earlier. PHYSICAL EXAMINATION: Pulse is 72, blood pressure 120/62, respiration 18. HEENT: Conjunctivae normal. NECK: No JVD. CARDIOVASCULAR: S1, S2 muffled. RESPIRATIONS: Breath sounds diminished in the bases. No rhonchi. No crackles. ABDOMEN: Soft, nontender. LEGS are no edema. No swelling. NERVOUS SYSTEM: No focal deficits. SKIN: No ulcer, rashes or bleeding. JOINTS: No active deforming arthropathy. Minimal deviation of the left present. LABS: Reviewed. CT scan reviewed. ASSESSMENT: 1. Weakness, numbness of the left lower face, possible acute transient ischemic attack, rule out acute stroke. 2. Atrial fibrillation. 3. Coronary artery disease. 4. History of deep vein thrombosis. 5. History of congestive heart failure. 6. Multiple medical issues. RECOMMENDATIONS AND DISCUSSION: This 81 -year-old gentleman who presented with multiple complex medical issues, we will monitor the patient closely, continue the current antiplatelet agents. Otherwise closely follow with Neurology. Neurovascular workup and checkup. Neuro checks. Prognosis guarded. Further recommendations to follow. MMODL / IJN: [id number] / MTDD
[2022-02-05] MEDS ORDERED: APIXABAN 5 MG TAB PO SCH (21:00)
--- NOTE | 2022-02-09 23:45 | P.DS ---
Providers Date of admission: 02/04/22 13:47 Expected date of discharge: 02/05/22 Attending physician: Zonia Mixon Consults: 02/04/22 13:47 Consult Physician Routine Consulting Provider: Nany Gtz Consult Reason/Comments: lower facial numbness Do you want consulting provider notified?: Yes Primary care physician: [facility] Hospital Course: Final diagnosis Weakness and numbness of the left lower face, possible acute TIA, rule out stroke Atrial fibrillation Coronary artery disease History of DVT History of congestive heart failure Multiple medical issues Discharge disposition Patient is being discharged in a stable condition with guarded prognosis to home. Patient will follow-up with the [facility] in the outpatient setting upon discharge. Patient is to follow up with neurology in one week. Patient to continue with Eliquis 5 mg bid on discharge. Total time taken is greater than 35 minutes. Hospital Course This is a 81-year-old male who was recently admitted with weakness and numbness of the left lower side of the face and underwent stroke workup. Ct brain negative for acute changes. Suggesting TIA versus stroke. Patient will need outpatient follow up with his chyron operator and also neuro on discharge. Patient was taking Eliquis 2.5mg bid and being increased to 5mg bid. Patient is requesting to go home today. Currently no reports of chest pain, shortness of breath, or palpitations. Patient is afebrile. No reports of nausea or vomiting and patient is tolerating diet. Patient will be discharged home today. Guarded prognosis. On exam vital signs are stable. Cardio S1, S2 are muffled. Respiratory system shows diminished breath sounds at the bases with no wheezing or rhonchi noted. Abdomen is soft and obese, and nontender. Nervous system shows no focal deficits. Please refer to medication reconciliation sheet for a list of medications. The impression and plan of care has been dictated by Rohini Serrano, Nurse Practitioner as directed. Dr. Oral MD I have performed a history and examination and MDM of this patient, discussed the same with the dictator, and agree with the dictator's assessment and plan a s written ,documented as a scribe. Based on total visit time, I have performed more than 50% of the visit. Patient Condition at Discharge: Fair Plan - Discharge Summary Discharge Rx Participant: Yes New Discharge Prescriptions: New Apixaban [Eliquis] 5 mg PO BID 30 Days #60 tab Continue Clopidogrel [Plavix] 75 mg PO PC-LUNCH Furosemide [Lasix] 80 mg PO MOWEFR Pantoprazole [Protonix] 40 mg PO DAILY Rosuvastatin Calcium [Crestor] 40 mg PO HS Potassium Chloride [Klor-Con 20] 20 meq PO DAILY Metoprolol Tartrate 25 mg PO BID Ferrous Sulfate [Iron (65 MG Elemental)] 325 mg PO DAILY Cholecalciferol [Vitamin D3 (25 Mcg = 1000 Iu)] 50 mcg PO DAILY Isosorbide Mononitrate ER [Imdur] 60 mg PO TID Artificial Tears Ointment [Lubrifresh Pm Ointment] 1 gm OPHTHALMIC HS PRN PRN Reason: Dry Eye(S) Ranolazine [Ranexa] 500 mg PO BID PARoxetine HCL 20 mg PO DAILY Carboxymethylcellulose Sodium [Refresh Tears] 1 drop BOTH EYES QID PRN PRN Reason: Dry Eye(S) calcitrioL [Calcitriol] 0.25 mcg PO MOWEFR Latanoprost/Pf [Latanoprost 0.005% Eye Drop] 1 drop BOTH EYES HS Gabapentin 300 mg PO TID Sacubitril/Valsartan [Entresto 49 mg-51 mg Tablet] 1 tab PO BID Discontinued Apixaban [Eliquis] 2.5 mg PO BID Discharge Medication List Clopidogrel [Plavix] 75 mg PO PC-LUNCH 11/08/16 [History] Furosemide [Lasix] 80 mg PO MOWEFR 11/08/16 [History] Pantoprazole [Protonix] 40 mg PO DAILY 11/08/16 [History] Rosuvastatin Calcium [Crestor] 40 mg PO HS 11/08/16 [History] Potassium Chloride [Klor-Con 20] 20 meq PO DAILY 08/11/17 [History] Metoprolol Tartrate 25 mg PO BID 07/05/18 [History] Carboxymethylcellulose Sodium [Refresh Tears] 1 drop BOTH EYES QID PRN 01/19/21 [History] Cholecalciferol [Vitamin D3 (25 Mcg = 1000 Iu)] 50 mcg PO DAILY 01/19/21 [History] Ferrous Sulfate [Iron (65 MG Elemental)] 325 mg PO DAILY 01/19/21 [History] Isosorbide Mononitrate ER [Imdur] 60 mg PO TID 01/19/21 [History] PARoxetine HCL 20 mg PO DAILY 01/19/21 [History] calcitrioL [Calcitriol] 0.25 mcg PO MOWEFR 01/19/21 [History] Artificial Tears Ointment [Lubrifresh Pm Ointment] 1 gm OPHTHALMIC HS PRN 10/20/21 [History] Gabapentin 300 mg PO TID 10/20/21 [History] Latanoprost/Pf [Latanoprost 0.005% Eye Drop] 1 drop BOTH EYES HS 10/20/21 [History] Sacubitril/Valsartan [Entresto 49 mg-51 mg Tablet] 1 tab PO BID 10/21/21 [History] Ranolazine [Ranexa] 500 mg PO BID 02/04/22 [History] Apixaban [Eliquis] 5 mg PO BID 30 Days #60 tab 02/05/22 [Rx] Follow up Appointment(s)/Referral(s): Angel Renee MD [Medical Doctor] - 1 Week (please call and make appointment) [facility] [Primary Care Provider] - 1-2 days (please call and make appointment) Ambulatory/Diagnostic Orders: Complete Blood Count w/diff [LAB.AMB] Time Frame: 3 Days, Location: None Selected Patient Instructions/Handouts: Ischemic Stroke (DC), Paresthesia (GEN) Activity/Diet/Wound Care/Special Instructions: Activity Limited until follow-up Follow-up with primary care provider on discharge Follow-up with cardiology Dr. Francisco out-of [place] and discuss continuing Plavix and also to discuss increased [place] dosing Recommend follow-up with neurology outpatient Recommend repeat CBC and BMP in 2-3 days Discharge Disposition: HOME SELF-CARE
== END 2022-02-05 17:09 | disposition home or self-care (01) | DRG 69 ==
LOC: EC 11:23 → 3SCARD 13:47
PROVIDERS: ADMIT Hospitalist; ATTEND Hospitalist
DX: G45.9 Transient cerebral ischemic attack, unspecified (principal); E66.9 Obesity, unspecified; Z68.32 Body mass index [BMI] 32.0-32.9, adult; E78.5 Hyperlipidemia, unspecified; G47.33 Obstructive sleep apnea (adult) (pediatric); I11.0 Hypertensive heart disease with heart failure; I50.9 Heart failure, unspecified; I48.91 Unspecified atrial fibrillation; I25.10 Atherosclerotic heart disease of native coronary artery without angina pectoris; M54.9 Dorsalgia, unspecified; G89.29 Other chronic pain; Z96.653 Presence of artificial knee joint, bilateral; Z86.718 Personal history of other venous thrombosis and embolism; Z79.02 Long term (current) use of antithrombotics/antiplatelets; Z79.899 Other long term (current) drug therapy; I25.2 Old myocardial infarction; Z79.01 Long term (current) use of anticoagulants; Z95.1 Presence of aortocoronary bypass graft; Z95.5 Presence of coronary angioplasty implant and graft; Z87.891 Personal history of nicotine dependence; Z95.810 Presence of automatic (implantable) cardiac defibrillator
CPT/HCPCS: 36415; 70450; 80048; 80053; 83735; 85025; 85610; 85730; 93005; 99285

== ENCOUNTER → 2022-03-12 | Outpatient (CLI) | payer OTHER ==
--- NOTE | 2022-03-12 12:52 | US ---
EXAMINATION TYPE: US carotid duplex BILAT DATE OF EXAM: 03/12/2022 COMPARISON: NONE CLINICAL HISTORY: G45.8 CEREBRAL ISCHEMIC ATTACKS. TIA, slurred speech, left sided facial numbness TECHNIQUE: Carotid duplex ultrasound examination. Indirect Doppler criteria was utilized. FINDINGS: EXAM MEASUREMENTS: RIGHT: Peak Systolic Velocity (PSV) cm/sec ----- Right CCA: 113 ----- Right ICA: 114 ----- Right ECA: 115 ICA/CCA ratio: 1.0 RIGHT: End Diastole cm/sec ----- Right CCA: 30.7 ----- Right ICA: 22.4 ----- Right ECA: 14.1 LEFT: Peak Systolic Velocity (PSV) cm/sec ----- Left CCA: 93.5 ----- Left ICA: 81.3 ----- Left ECA: 129 ICA/CCA ratio: 0.87 LEFT: End Diastole cm/sec ----- Left CCA: 27.8 ----- Left ICA: 29.9 ----- Left ECA: 20.8 VERTEBRALS (direction of flow): Right Vertebral: Antegrade Left Vertebral: Antegrade Rhythm: Normal [employer] ME[employer]ER NOTES: Plaque seen at Right Prox ICA/ Bulb area Velocity measurements and ratios in internal carotid arteries bilaterally remain within normal limits . IMPRESSION: No hemodynamically significant stenosis in the internal carotid artery. Criteria for Assigning % of Stenosis / Diameter reduction (Estimation based on the indirect measurements of the internal carotid artery velocities (ICA PSV). 1. Normal (no stenosis)=ICA PSV < 125 cm/s: ratio < 2.0: ICA EDV<40 cm/s. 2. Less than 50% stenosis=ICA PSV < 125 cm/s: ratio < 2.0: ICA EDV<40 cm/s. 3. 50 to 69% stenosis=ICA PSV of 125 to 230 cm/s: ration 2.0 ? 4.0: ICA EDV 40-100 cm/s. 4. Greater than 70% stenosis to near occlusion= ICA PSV > 230 cm/s: ratio > 4.0: ICA EDV > 100 cm/s. 5. Near occlusion= ICA PSV velocities may be low or undetectable: variable ratio and ICA EDV. 6. Total occlusion=unable to detect flow.
== END | disposition home or self-care (01) ==
LOC: RADUSWWP 11:28
DX: G45.8 Other transient cerebral ischemic attacks and related syndromes (principal)
CPT/HCPCS: 93880

== ENCOUNTER 2023-09-30 13:14 | Emergency (ER) | payer OTHER, MEDICARE ==
[2023-09-30 13:40] VITALS: RESP 18
--- NOTE | 2023-09-30 13:48 | ED ---
General Adult HPI - General Chief complaint: Shortness of Breath Stated complaint: Cough,Congestion,HEVER Time Seen by Provider: 09/30/23 13:38 Source: patient, RN notes reviewed, old records reviewed Mode of arrival: ambulatory Limitations: no limitations - History of Present Illness Initial comments: 82-year-old male presents for evaluation of cough, productive cough with white sputum. Symptoms began today. No associated fever. No central chest pain. [facility] concerns that this could be related to congestive heart failure. Patient denies lower extremity edema. Denies weight gain. States he has been compliant with his Lasix. - Related Data Home Medications Medication Instructions Recorded Confirmed Clopidogrel [Plavix] 75 mg PO PC-LUNCH 11/08/16 02/04/22 Furosemide [Lasix] 80 mg PO MOWEFR 11/08/16 02/04/22 Pantoprazole [Protonix] 40 mg PO DAILY 11/08/16 02/04/22 Rosuvastatin Calcium [Crestor] 40 mg PO HS 11/08/16 02/04/22 Potassium Chloride [Klor-Con 20] 20 meq PO DAILY 08/11/17 02/04/22 Metoprolol Tartrate 25 mg PO BID 07/05/18 02/04/22 Carboxymethylcellulose Sodium 1 drop BOTH EYES QID PRN 01/19/21 02/04/22 [Refresh Tears] Cholecalciferol [Vitamin D3 (25 50 mcg PO DAILY 01/19/21 02/04/22 Mcg = 1000 Iu)] Ferrous Sulfate [Iron (65 MG 325 mg PO DAILY 01/19/21 02/04/22 Elemental)] Isosorbide Mononitrate ER [Imdur] 60 mg PO TID 01/19/21 02/04/22 PARoxetine HCL 20 mg PO DAILY 01/19/21 02/04/22 calcitrioL 0.25 mcg PO MOWEFR 01/19/21 02/04/22 Artificial Tears Ointment 1 gm OPHTHALMIC HS PRN 10/20/21 02/04/22 [Lubrifresh Pm Ointment] Gabapentin 300 mg PO TID 10/20/21 02/04/22 Latanoprost/Pf [Latanoprost 0.005% 1 drop BOTH EYES HS 10/20/21 02/04/22 Eye Drop] Sacubitril/Valsartan [Entresto 49 1 tab PO BID 10/21/21 02/04/22 mg-51 mg Tablet] Ranolazine [Ranexa] 500 mg PO BID 02/04/22 02/04/22 Previous Rx's Medication Instructions Recorded Apixaban [Eliquis] 5 mg PO BID 30 Days #60 tab 02/05/22 Albuterol Inhaler [Ventolin Hfa 1 - 2 puff INHALATION Q4HR PRN #1 09/30/23 Inhaler] each methylPREDNISolone Dose Pack 4 mg PO DIRECTED #21 packet 09/30/23 [Medrol Dose Pack] Allergies Allergy/AdvReac Type Severity Reaction Status Date / Time Iodinated Contrast Media Allergy Rash/Hives Verified 09/30/23 13:35 iodine Allergy Rash/Hives Verified 09/30/23 13:35 lisinopril Allergy Unknown Verified 09/30/23 13:35 Penicillins Allergy Rash/Hives Verified 09/30/23 13:35 All Over hydromorphone [From Dilaudid] AdvReac Nightmares Verified 09/30/23 13:35 Review of Systems ROS Statement: Those systems with pertinent positive or pertinent negative responses have been documented in the HPI. ROS Other: All systems not noted in ROS Statement are negative. Past Medical History Past Medical History: Atrial Fibrillation, Coronary Artery Disease (CAD), Cancer, Heart Failure, Deep Vein Thrombosis (DVT), GERD/Reflux, Hyperlipidemia, Hypertension, Myocardial Infarction (VT), Osteoarthritis (OA), Sleep Apnea/CPAP/BIPAP Additional Past Medical History / Comment(s): R lung stable pulmonary nodule, internal bleed/went unresponsive/transfused, RUPINDER/did not tolerate CPap, DVT R leg, diverticular disease/polyps, prostate cancer with biopsies/then cancer was gone, arthritis in multiple joints, 2 back vertebral fractures, chronic back pain Last Myocardial Infarction Date:: 1989 History of Any Multi-Drug Resistant Organisms: None Reported Past Surgical History: AICD, Appendectomy, Coronary Bypass/CABG, Heart Cathete rization, Heart Catheterization With Stent, Joint Replacement, Orthopedic Surgery, Prostate Surgery Additional Past Surgical History / Comment(s): 2005 AICD ([employer]) with 2 battery replacements/last battery change was in 2019, PCI/multiple stents, coronary angioplasties, TURP, prostate biopsies, colonoscopy, bilateral total knee arthroplasties. Patient states 40+ stents, cannot have anymore stents placed. Per patients eye doctor, possible plaque on optic nerve post ballooning procedure. Past Anesthesia/Blood Transfusion Reactions: No Reported Reaction Additional Past Anesthesia/Blood Transfusion Reaction / Comment(s): Pt has had blood transfusions without reaction. Date of Last Stent Placement:: 2019 Type of Cardiac Device: AICD Device Placement Date:: 2005 Past Psychological History: No Psychological Hx Reported, Anxiety Smoking Status: Former smoker Past Alcohol Use History: None Reported Past Drug Use History: None Reported - Past Family History Father Family Medical History: Myocardial Infarction (VT) Additional Family Medical History / Comment(s): Father of a VT at the age of 63yrs. Mother Additional Family Medical History / Comment(s): Mother in bed. She was a heavy smoker. Brother(s) Family Medical History: Cancer Additional Family Medical History / Comment(s): of metastatic pancreatic cancer General Exam Limitations: no limitations General appearance: alert, in no apparent distress Head exam: Present: atraumatic, normocephalic Eye exam: Present: normal appearance, PERRL ENT exam: Present: normal exam Neck exam: Present: normal inspection. Absent: tenderness, meningismus Respiratory exam: Present: wheezes. Absent: respiratory distress, rales Cardiovascular Exam: Present: regular rate, normal rhythm GI/Abdominal exam: Present: soft. Absent: distended, tenderness Extremities exam: Present: normal inspection, normal capillary refill. Absent: pedal edema Neurological exam: Present: alert, oriented X3 Psychiatric exam: Present: normal affect, normal mood Skin exam: Present: warm, dry, intact. Absent: cyanosis, diaphoretic Course Vital Signs 09/30/23 09/30/23 13:30 14:40 Temperature 98.0 F Pulse Rate 81 Respiratory 18 20 Rate Blood Pressure 100/57 O2 Sat by Pulse 96 Oximetry Medical Decision Making - Medical Decision Making Was pt. sent in by a medical professional or institution (, PA, CREATIVE RECRUITER, urgent care, hospital, or senior living...) When possible be specific @ -[No] Did you speak to anyone other than the patient for history (EMS, parent, family, police, friend...)? What history was obtained from this source @ -[No] Did you review nursing and triage notes (agree or disagree)? Why? @ -[I reviewed and agree with nursing and triage notes] Were old charts reviewed (outside hosp., previous admission, EMS record, old EKG, old radiological studies, urgent care reports/EKG's, senior living records)? Report findings @ -[No old charts were reviewed] Differential Diagnosis (chest pain, altered mental status, abdominal pain women, abdominal pain men, vaginal bleeding, weakness, fever, dyspnea, syncope, headache, dizziness, GI bleed, back pain, seizure, CVA, palpatations, mental health, musculoskeletal)? @ -Differential Dyspnea: Coronary syndrome, arrhythmia, tamponade, asthma, COPD, pulmonary embolism, pneumonia, pneumothorax, pulmonary effusion, anaphylaxis, diabetic ketoacidosis, flailed chest, pulmonary contusion, diaphragmatic rupture, anemia, neuromuscular, this is not meant to be an all-inclusive list. EKG interpreted by me (3pts min.). @ Paced rhythm rate of 71, OR interval 245, QRS duration 118, QTc [address] segment elevation. X-rays interpreted by me (1pt min.). @Chest x-ray negative for sima pulmonary edema, no acute findings. CT interpreted by me (1pt min.). @ -[None done] U/S interpreted by me (1pt. min.). @ -[None done] What testing was considered but not performed or refused? (CT, X-rays, U/S, labs)? Why? @ -[None] What meds were considered but not given or refused? Why? @ -[None] Did you discuss the management of the patient with other professionals (professionals i.e. , PA, CREATIVE RECRUITER, lab, RT, psych nurse, social services manager, snow remover, teacher, surveillance dual rate officer, nurse case manager)? Give summary @ -[No] Was smoking cessation discussed for >3mins.? @ -[No] Was critical care preformed (if so, how long)? @ -[No] Were there social determinants of health that impacted care today? How? (Homelessness, low income, unemployed, alcoholism, drug addiction, transportation, low edu. Level, literacy, decrease access to med. care, custodial, rehab)? @ -[No] Was there de-escalation of care discussed even if they declined (Discuss DNR or withdrawal of care, Hospice)? DNR status @ -[No] What co-morbidities impacted this encounter? (DM, HTN, Smoking, COPD, CAD, Cancer, CVA, ARF, Chemo, Hep., AIDS, mental health diagnosis, sleep apnea, morbid obesity)? @ -CAD, pacemaker, CHF Was patient admitted / discharged? Hospital course, mention meds given and route, significant lab abnormalities, going to OR and other pertinent info. @ -[82-year-old male with cough, productive of white sputum, concern for CHF fr om primary care provider. Patient states symptoms have improved throughout the day today. No central chest pain. No lower extremity pain or swelling. EKG is paced rhythm. Patient has mild anemia, otherwise normal CBC, normal electrolytes, negative troponin and only minimally elevated BNP. Patient test positive for RSV Undiagnosed new problem with uncertain prognosis? @ -[No] Drug Therapy requiring intensive monitoring for toxicity (Heparin, Nitro, Insulin, Cardizem)? @ -[No] Were any procedures done? @ -[No] Diagnosis/symptom? @ -Acute bronchitis, RSV Acute, or Chronic, or Acute on Chronic? @ -Acute Uncomplicated (without systemic symptoms) or Complicated (systemic symptoms)? @ -[default] Side effects of treatment? @ -[No] Exacerbation, Progression, or Severe Exacerbation? @ -[No] Poses a threat to life or bodily function? How? (Chest pain, USA, VT, pneumonia, PE, COPD, DKA, ARF, appy, cholecystitis, CVA, Diverticulitis, Homicidal, Suicidal, threat to staff... and all critical care pts) @ -Low risk at this time] - Lab Data Result diagrams: 09/30/23 14:14 09/30/23 14:14 Lab Results 09/30/23 09/30/23 09/30/23 Range/Units 14:14 14:14 14:14 WBC 9.5 (3.8-10.6) k/uL RBC 3.86 L (4.30-5.90) m/uL Hgb 12.3 L (13.0-17.5) gm/dL Hct 37.1 L (39.0-53.0) % MCV 96.1 (80.0-100.0) fL MCH 31.9 (25.0-35.0) pg MCHC 33.2 (31.0-37.0) g/dL RDW 16.2 H (11.5-15.5) % Plt Count 200 (150-450) k/uL MPV 8.0 Neutrophils % 75 % Lymphocytes % 10 % Monocytes % 10 % Eosinophils % 3 % Basophils % 1 % Neutrophils # 7.2 (1.3-7.7) k/uL Lymphocytes # 0.9 L (1.0-4.8) k/uL Monocytes # 1.0 (0-1.0) k/uL Eosinophils # 0.3 (0-0.7) k/uL Basophils # 0.1 (0-0.2) k/uL Anisocytosis Slight PT 11.1 (10.0-12.5) sec INR 1.0 (<1.2) APTT 23.6 (22.0-30.0) sec Sodium 140 (137-145) mmol/L Potassium 4.2 (3.5-5.1) mmol/L Chloride 105 (98-107) mmol/L Carbon Dioxide 32 H (22-30) mmol/L Anion Gap 3 mmol/L BUN 15 (9-20) mg/dL Creatinine 1.02 (0.66-1.25) mg/dL Est GFR (CKD-EPI)AfAm 80 (>60 ml/min/1.73 sqM) Est GFR (CKD-EPI)NonAf 69 (>60 ml/min/1.73 sqM) Glucose 108 H (74-99) mg/dL Calcium 8.8 (8.4-10.2) mg/dL Magnesium 2.0 (1.6-2.3) mg/dL Total Bilirubin 0.9 (0.2-1.3) mg/dL AST 19 (17-59) U/L ALT 14 (4-49) U/L Alkaline Phosphatase 55 (38-126) U/L Troponin I (0.000-0.034) ng/mL NT-Pro-B Natriuret Pep 1090 pg/mL Total Protein 6.0 L (6.3-8.2) g/dL Albumin 3.8 (3.5-5.0) g/dL Influenza Type A (PCR) (Not Detectd) Influenza Type B (PCR) (Not Detectd) RSV (PCR) (Not Detectd) SARS-CoV-2 (PCR) (Not Detectd) 09/30/23 09/30/23 Range/Units 14:14 14:14 WBC (3.8-10.6) k/uL RBC (4.30-5.90) m/uL Hgb (13.0-17.5) gm/dL Hct (39.0-53.0) % MCV (80.0-100.0) fL MCH (25.0-35.0) pg MCHC (31.0-37.0) g/dL RDW (11.5-15.5) % Plt Count (150-450) k/uL MPV Neutrophils % % Lymphocytes % % Monocytes % % Eosinophils % % Basophils % % Neutrophils # (1.3-7.7) k/uL Lymphocytes # (1.0-4.8) k/uL Monocytes # (0-1.0) k/uL Eosinophils # (0-0.7) k/uL Basophils # (0-0.2) k/uL Anisocytosis PT (10.0-12.5) sec INR (<1.2) APTT (22.0-30.0) sec Sodium (137-145) mmol/L Potassium (3.5-5.1) mmol/L Chloride (98-107) mmol/L Carbon Dioxide (22-30) mmol/L Anion Gap mmol/L BUN (9-20) mg/dL Creatinine (0.66-1.25) mg/dL Est GFR (CKD-EPI)AfAm (>60 ml/min/1.73 sqM) Est GFR (CKD-EPI)NonAf (>60 ml/min/1.73 sqM) Glucose (74-99) mg/dL Calcium (8.4-10.2) mg/dL Magnesium (1.6-2.3) mg/dL Total Bilirubin (0.2-1.3) mg/dL AST (17-59) U/L ALT (4-49) U/L Alkaline Phosphatase (38-126) U/L Troponin I <0.012 (0.000-0.034) ng/mL NT-Pro-B Natriuret Pep pg/mL Total Protein (6.3-8.2) g/dL Albumin (3.5-5.0) g/dL Influenza Type A (PCR) Not Detected (Not Detectd) Influenza Type B (PCR) Not Detected (Not Detectd) RSV (PCR) Detected A (Not Detectd) SARS-CoV-2 (PCR) Not Detected (Not Detectd) Disposition Clinical Impression: Acute bronchitis, RSV infection Disposition: HOME SELF-CARE Condition: Fair Instructions (If sedation given, give patient instructions): Acute Bronchitis (ED) Prescriptions: methylPREDNISolone Dose Pack [Medrol Dose Pack] 4 mg PO DIRECTED #21 packet Albuterol Inhaler [Ventolin Hfa Inhaler] 1 - 2 puff INHALATION Q4HR PRN #1 each PRN Reason: Shortness Of Breath Is patient prescribed a controlled substance at d/c from ED?: No Referrals: [facility],Clinic [Primary Care Provider] - 1-2 days Time of Disposition: 14:52
[2023-09-30 14:23] LABS: Anisocytosis Slight; Basophils # (A) 0.1 k/uL (0-0.2); Basophils % (A) 1 %; Eosinophils # (A) 0.3 k/uL (0-0.7); Eosinophils % (A) 3 %; HCT 37.1 % (39.0-53.0); HGB 12.3 gm/dL (13.0-17.5); Lymphocytes # (A) 0.9 k/uL (1.0-4.8); Lymphocytes % (A) 10 %; MCH 31.9 pg (25.0-35.0); MCHC 33.2 g/dL (31.0-37.0); MCV 96.1 fL (80.0-100.0); Monocytes % (A) 10 %; Neutrophils # (A) 7.2 k/uL (1.3-7.7); Neutrophils % (A) 75 %; Platelet Count 200 k/uL (150-450); RBC 3.86 m/uL (4.30-5.90); RDW 16.2 % (11.5-15.5); WBC 9.5 k/uL (3.8-10.6)
[2023-09-30 14:35] LABS: ALT 14 U/L (4-49); AST 19 U/L (17-59); African American GFR (CKD) 80 (>60 ml/min/1.73 sqM); Albumin 3.8 g/dL (3.5-5.0); Alkaline Phosphatase 55 U/L (38-126); Anion Gap 3 mmol/L; Blood Urea Nitrogen 15 mg/dL (9-20); Calcium 8.8 mg/dL (8.4-10.2); Carbon Dioxide 32 mmol/L (22-30); Chloride 105 mmol/L (98-107); Glucose 108 mg/dL (74-99); Non-African American GFR(CKD) 69 (>60 ml/min/1.73 sqM); Potassium 4.2 mmol/L (3.5-5.1); Sodium 140 mmol/L (137-145); Total Bilirubin 0.9 mg/dL (0.2-1.3)
[2023-09-30 14:40] LABS: Partial Thromboplastin Time 23.6 sec (22.0-30.0); Prothrombin Time 11.1 sec (10.0-12.5)
[2023-09-30 14:43] LABS: NT-Pro-B-Type Natriuretic Pept 1090 pg/mL
--- NOTE | 2023-09-30 14:50 | XR ---
EXAMINATION TYPE: XR chest 2V DATE OF EXAM: 09/30/2023 COMPARISON: 10/20/2021 HISTORY: 82-year-old male shortness of breath, difficulty breathing TECHNIQUE: PA and lateral views FINDINGS: Right anterior chest wall AICD generator with right atrial and ventricular leads. Median sternotomy w ires with post-CABG clips. A couple stents are also noted. Heart borderline in size. No consolidation or pleural effusion. Prominent degenerative change at the right AC joint. Inferior acromial spurring may reflect underlying rotator cuff tear. DISH throughout the thoracic spine. IMPRESSION: Borderline heart size. No definite acute process.
[2023-09-30 15:14] VITALS: BP 107/62; PULSE 69; TEMP 98
== END 2023-09-30 15:10 | disposition home or self-care (01) ==
LOC: EC 13:14
DX: J20.5 Acute bronchitis due to respiratory syncytial virus (principal); D64.9 Anemia, unspecified; R79.89 Other specified abnormal findings of blood chemistry; I11.0 Hypertensive heart disease with heart failure; I25.10 Atherosclerotic heart disease of native coronary artery without angina pectoris; I25.2 Old myocardial infarction; I50.9 Heart failure, unspecified; I48.91 Unspecified atrial fibrillation; E78.5 Hyperlipidemia, unspecified; K21.9 Gastro-esophageal reflux disease without esophagitis; M19.90 Unspecified osteoarthritis, unspecified site; Z20.822 Contact with and (suspected) exposure to COVID-19; Z79.02 Long term (current) use of antithrombotics/antiplatelets; Z79.899 Other long term (current) drug therapy; Z88.0 Allergy status to penicillin; Z88.5 Allergy status to narcotic agent; Z91.041 Radiographic dye allergy status; Z88.8 Allergy status to other drugs, medicaments and biological substances; Z86.718 Personal history of other venous thrombosis and embolism; Z87.891 Personal history of nicotine dependence; Z90.49 Acquired absence of other specified parts of digestive tract; Z95.5 Presence of coronary angioplasty implant and graft; Z95.1 Presence of aortocoronary bypass graft; Z95.810 Presence of automatic (implantable) cardiac defibrillator
CPT/HCPCS: 36415; 71046; 80053; 83735; 83880; 84484; 85025; 85610; 85730; 87636; 93005; 99285

== ENCOUNTER 2023-11-17 06:35 | Day surgery (SDC) | payer MEDICARE, OTHER ==
[2023-11-15 15:52] VITALS: BMI 33.2
[2023-11-17] MEDS ORDERED: LIDOCAINE 1% (10MG/ML) FOR IV START INTRADERMA PRN (07:26)
[2023-11-17] MEDS: LACTATED RINGERS 1,000 ML IV SCH (07:36)
--- NOTE | 2023-11-17 07:42 | P.GSHP ---
History of Present Illness H&P Date: 11/17/23 CHIEF COMPLAINT: GERD and colon screen HISTORY OF PRESENT ILLNESS: The patient is a 83-year-old male who presents with gastroesophageal reflux disease and need for colon screen. Upper and lower endoscopy were offered for further evaluation and management. PAST MEDICAL HISTORY: Please see list. PAST SURGICAL HISTORY: Please see list. MEDICATIONS: Please see list. ALLERGIES: Please see list. SOCIAL HISTORY: No illicit drug use FAMILY HISTORY: No reports of Crohn disease or ulcerative colitis. REVIEW OF ORGAN SYSTEMS: CONSTITUTIONAL: No reports of fevers or chills. GI: Denies any blood in stools or constipation. PHYSICAL EXAM: VITAL SIGNS: Stable GENERAL: Well-developed pleasant in no acute distress. HEENT: No scleral icterus. Extraocular movements grossly intact. Moist buccal mucosa. NECK: Supple without lymphadenopathy. CHEST: Unlabored respirations. Equal bilateral excursions. CARDIOVASCULAR: Regular rate and rhythm. Distal 2+ pulses. ABDOMEN: Soft, nondistended. MUSCULOSKELETAL: No clubbing, cyanosis, or edema. ASSESSMENT: 1. Gastroesophageal reflux disease 2. Colon screen. PLAN: 1. Recommend proceeding with an upper and lower endoscopy Past Medical History Past Medical History: Atrial Fibrillation, Coronary Artery Disease (CAD), Cancer, Heart Failure, Deep Vein Thrombosis (DVT), GERD/Reflux, Hearing Disorder / Deafness, Hyperlipidemia, Hypertension, Myocardial Infarction ([place]), Osteoarthritis (OA), Sleep Apnea/CPAP/BIPAP Additional Past Medical History / Comment(s): Had a fall last week. Hard of hearing. Right lung - stable pulmonary nodule. Hx internal bleed, went unr esponsive and was transfused. No device use for Sleep Apnea. Hx DVT right leg. Hx diverticular disease/polyps. Hx prostate cancer with biopsies/then cancer was gone. Hx 2 lumbar vertebral fractures, chronic back pain, "left arm - muscle loose, not having it repaired." Last Myocardial Infarction Date:: 1989 History of Any Multi-Drug Resistant Organisms: None Reported Past Surgical History: AICD, Appendectomy, Coronary Bypass/CABG, Heart Catheterization, Heart Catheterization With Stent, Joint Replacement, Orthopedic Surgery Additional Past Surgical History / Comment(s): 2005 AICD ([employer]) with 2 battery replacements/last battery change was in 2019, PCI/multiple stents, "40+ stents, can't have anymore stents placed", coronary angioplasties, prostate biopsies, colonoscopy, bilateral total knee replacements, bilateral cataracts removed. Past Anesthesia/Blood Transfusion Reactions: No Reported Reaction Additional Past Anesthesia/Blood Transfusion Reaction / Comment(s): Pt has had blood transfusions without reaction. "Contrast Dye will kill me". Date of Last Stent Placement:: 2019 Type of Cardiac Device: AICD Device Placement Date:: 2005 Smoking Status: Former smoker - Past Family History Father Family Medical History: Myocardial Infarction (MN) Additional Family Medical History / Comment(s): Father of a [place] at the age of 63yrs. Mother Additional Family Medical History / Comment(s): Mother in bed. She was a heavy smoker. Brother(s) Family Medical History: Cancer Additional Family Medical History / Comment(s): One brother had colon cancer, another brother had colon and pancreatic cancer. Sister(s) Family Medical History: Cancer Additional Family Medical History / Comment(s): Colon cancer. Medications and Allergies Home Medications Medication Instructions Recorded Confirmed Type Clopidogrel [Plavix] 75 mg PO PC-LUNCH 11/08/16 11/15/23 History Furosemide [Lasix] 40 mg PO MOWEFR 11/08/16 11/17/23 History Pantoprazole [Protonix] 40 mg PO DAILY 11/08/16 11/17/23 History Rosuvastatin Calcium [Crestor] 40 mg PO HS 11/08/16 11/17/23 History Metoprolol Tartrate 25 mg PO BID 07/05/18 11/17/23 History Carboxymethylcellulose Sodium 1 drop BOTH EYES QID PRN 01/19/21 11/17/23 History [Refresh Tears] Cholecalciferol [Vitamin D3 (25 50 mcg PO DAILY 01/19/21 11/17/23 History Mcg = 1000 Iu)] Ferrous Sulfate [Iron (65 MG 325 mg PO DAILY 01/19/21 11/15/23 History Elemental)] Isosorbide Mononitrate ER [Imdur] 60 mg PO TID 01/19/21 11/17/23 History calcitrioL 0.25 mcg PO MOWEFR 01/19/21 11/17/23 History Gabapentin 300 mg PO TID 10/20/21 11/17/23 History Sacubitril/Valsartan [Entresto 49 1 tab PO BID 10/21/21 11/17/23 History mg-51 mg Tablet] Apixaban [Eliquis] 5 mg PO BID 30 Days #60 tab 02/05/22 11/15/23 Rx Lumigan (Unknown Dose) 1 drop BOTH EYES HS 11/15/23 11/17/23 History PARoxetine [Paxil] 20 mg PO QAM 11/15/23 11/17/23 History Allergies Allergy/AdvReac Type Severity Reaction Status Date / Time Iodinated Contrast Media Allergy Rash/Hives Verified 11/17/23 07:36 iodine Allergy Rash/Hives Verified 11/17/23 07:36 lisinopril Allergy Unknown Verified 11/17/23 07:36 Penicillins Allergy Rash/Hives Verified 11/17/23 07:36 All Over hydromorphone [From Dilaudid] AdvReac Nightmares Verified 11/17/23 07:36 Surgical - Exam Vital Signs Temp Pulse Resp BP Pulse Ox 97.4 F L 95 16 139/77 94 L 11/17/23 07:38 11/17/23 07:38 11/17/23 07:38 11/17/23 07:38 11/17/23 07:38
[2023-11-17 08:05] VITALS: RESP 16; TEMP 97.4
[2023-11-17] MEDS ORDERED: LIDOCAINE 1% INJ 10MG/ML (20 ML MDV) ONE (08:09)
[2023-11-17] MEDS ORDERED: PROPOFOL 10 MG/ML 20 ML VIAL IV ONE (08:09)
--- NOTE | 2023-11-17 08:42 | P.PCN ---
Date of Procedure: 11/17/23 Description of Procedure: PREOPERATIVE DIAGNOSIS: Personal history of colon polyps Family history malignant colon polyps Colonoscopy screening Chronic anticoagulation POSTOPERATIVE DIAGNOSIS: Personal history of colon polyps Family history malignant colon polyps Colonoscopy screening Tubular adenoma ascending colon Tubular adenoma transverse colon Sigmoid diverticulosis Internal hemorrhoids, grade 2 Chronic anticoagulation OPERATION: Colonoscopy to the ileocecal valve and appendiceal orifice, cecum Colonoscopy with hot snare polypectomy SURGEON: Lavonne Ramírez MD. ANESTHESIA: MAC. INDICATIONS: The patient is an 67-year-old male who presents family history of malignant colon polyps and personal history of colon polyps. Last colonoscopy 5 years. Benefits and risks were described and informed consent was obtained. DESCRIPTION OF PROCEDURE: The patient had undergone Sutab prep. The patient had been brought into the operating room and laid in the left lateral decubitus position. After adequate intravenous sedation, the rectum was examined with 2% lidocaine jelly. The prostate was unremarkable. No external hemorrhoids were encountered. The rectal tone was within normal limits. No lesions were palpated in the rectal vault. An Olympus colonoscope was advanced until the cecum, ileocecal valve and appendiceal orifice were clearly viewed. The prep was good. Sigmoid diverticulosis was encountered. Colonic polyps were found and removed. No evidence of focal colitis was found. Retroflexion of the scope demonstrated grade 2 internal hemorrhoids without active bleeding or inflammation. The colon was desufflated. The patient had tolerated the procedure well. Withdrawal time was over 6 minutes. FINDINGS: Aronchick preparation quality scale 2 (1-5) Internal hemorrhoids, grade 2 External hemorrhoids, grade 2. No arteriovenous malformations. Sigmoid diverticulosis Removal of 2 polyps: - Snare polypectomy ascending colon, 6 mm tubulovillous adenoma - Snare polypectomy distal transverse colon, 4 mm flat villous adenoma No focal colitis. RECOMMENDATIONS: Given severity of tubular adenomas, recommend repeat colonoscopy 3 years, 2026 Plan - Discharge Summary Discharge Rx Participant: No New Discharge Prescriptions: Continue Clopidogrel [Plavix] 75 mg PO PC-LUNCH Furosemide [Lasix] 40 mg PO MOWEFR Pantoprazole [Protonix] 40 mg PO DAILY Rosuvastatin Calcium [Crestor] 40 mg PO HS Metoprolol Tartrate 25 mg PO BID Ferrous Sulfate [Iron (65 MG Elemental)] 325 mg PO DAILY Cholecalciferol [Vitamin D3 (25 Mcg = 1000 Iu)] 50 mcg PO DAILY Isosorbide Mononitrate ER [Imdur] 60 mg PO TID Apixaban [Eliquis] 5 mg PO BID 30 Days #60 tab PARoxetine [Paxil] 20 mg PO QAM Carboxymethylcellulose Sodium [Refresh Tears] 1 drop BOTH EYES QID PRN PRN Reason: Dry Eye(S) calcitrioL 0.25 mcg PO MOWEFR Gabapentin 300 mg PO TID Sacubitril/Valsartan [Entresto 49 mg-51 mg Tablet] 1 tab PO BID Lumigan (Unknown Dose) 1 drop BOTH EYES HS Discharge Medication List Clopidogrel [Plavix] 75 mg PO PC-LUNCH 11/08/16 [History] Furosemide [Lasix] 40 mg PO MOWEFR 11/08/16 [History] Pantoprazole [Protonix] 40 mg PO DAILY 11/08/16 [History] Rosuvastatin Calcium [Crestor] 40 mg PO HS 11/08/16 [History] Metoprolol Tartrate 25 mg PO BID 07/05/18 [History] Carboxymethylcellulose Sodium [Refresh Tears] 1 drop BOTH EYES QID PRN 01/19/21 [History] Cholecalciferol [Vitamin D3 (25 Mcg = 1000 Iu)] 50 mcg PO DAILY 01/19/21 [History] Ferrous Sulfate [Iron (65 MG Elemental)] 325 mg PO DAILY 01/19/21 [History] Isosorbide Mononitrate ER [Imdur] 60 mg PO TID 01/19/21 [History] calcitrioL 0.25 mcg PO MOWEFR 01/19/21 [History] Gabapentin 300 mg PO TID 10/20/21 [History] Sacubitril/Valsartan [Entresto 49 mg-51 mg Tablet] 1 tab PO BID 10/21/21 [History] Apixaban [Eliquis] 5 mg PO BID 30 Days #60 tab 02/05/22 [Rx] Lumigan (Unknown Dose) 1 drop BOTH EYES HS 11/15/23 [History] PARoxetine [Paxil] 20 mg PO QAM 11/15/23 [History] Follow up Appointment(s)/Referral(s): Lavonne Ramírez MD [STAFF PHYSICIAN] - 12/13/23 11:30 am Patient Instructions/Handouts: *Surgery [facility] - (Anesthesia) Discharge Instructions Outpatient Surgery, Diverticulosis Diet (GEN), Diverticulosis (DC), Hiatal Hernia (DC) Activity/Diet/Wound Care/Special Instructions: START PLAVIX AND ELIQUIS 11/21/23...high risk of bleeding if starts sooner. Repeat colonoscopy 3 years, 2026. Discharge Disposition: HOME SELF-CARE
--- NOTE | 2023-11-17 08:43 | P.PCN ---
Date of Procedure: 11/17/23 Description of Procedure: PREOPERATIVE DIAGNOSIS: Gastroesophageal reflux disease. Chronic anticoagulation POSTOPERATIVE DIAGNOSIS: Gastritis, chronic Diaphragmatic hiatal hernia OPERATION: Esophagogastroduodenoscopy with biopsies along with gas, antrum and duodenum SURGEON: Lavonne Ramírez MD ANESTHESIA: MAC. INDICATIONS: The patient is a 83-year-old female who presents with reflux disease. Benefits and risks of the procedure were described. Informed consent was obtained. DESCRIPTION: The patient was brought into the endoscopy suite and laid in the left lateral decubitus position. An Olympus gastroscope was passed along the posterior oropharynx down to the distal esophagus where the squamocolumnar junction was encountered at 37 cm from the incisors. The stomach was entered and no bile reflux was found. Additional findings are listed below. Biopsies with cold forceps were obtained of the antrum. The first through third portion of the duodenum was examined. Retroflexion of the scope confirmed Hill grade 2 lower esophageal valve. The squamocolumnar junction demonstrated LA grade B erosive esophagitis. The stomach was desufflated. The patient tolerated the procedure well. FINDINGS: Squamocolumnar junction 37 cm from the incisors. Diaphragmatic hiatus at 40 cm. Hiatal hernia, 3 cm Hill grade 2 lower esophageal valve. LA grade B erosive esophagitis. Biopsies obtained Biopsies obtained of the duodenum. Chronic gastritis with biopsies obtained. RECOMMENDATIONS: Upper endoscopy as needed.
[2023-11-17 09:28] VITALS: PULSE 71
[2023-11-17 10:09] VITALS: BP 127/62
== END 2023-11-17 10:15 | disposition home or self-care (01) ==
LOC: ORWHC2ENDO 06:35
PROVIDERS: ATTEND Surgery Plastic and Reconstructive Surgery
DX: Z12.11 Encounter for screening for malignant neoplasm of colon (principal); K21.00 Gastro-esophageal reflux disease with esophagitis, without bleeding; D12.2 Benign neoplasm of ascending colon; D12.3 Benign neoplasm of transverse colon; K31.9 Disease of stomach and duodenum, unspecified; K44.9 Diaphragmatic hernia without obstruction or gangrene; K57.30 Diverticulosis of large intestine without perforation or abscess without bleeding; K64.1 Second degree hemorrhoids; K29.50 Unspecified chronic gastritis without bleeding; E78.5 Hyperlipidemia, unspecified; G47.30 Sleep apnea, unspecified; G89.29 Other chronic pain; I11.0 Hypertensive heart disease with heart failure; I50.9 Heart failure, unspecified; I48.91 Unspecified atrial fibrillation; I25.2 Old myocardial infarction; I25.10 Atherosclerotic heart disease of native coronary artery without angina pectoris; M19.90 Unspecified osteoarthritis, unspecified site; Z79.01 Long term (current) use of anticoagulants; Z79.899 Other long term (current) drug therapy; Z80.0 Family history of malignant neoplasm of digestive organs; Z85.46 Personal history of malignant neoplasm of prostate; Z86.718 Personal history of other venous thrombosis and embolism; Z87.891 Personal history of nicotine dependence; Z88.0 Allergy status to penicillin; Z88.5 Allergy status to narcotic agent; Z88.8 Allergy status to other drugs, medicaments and biological substances; Z90.49 Acquired absence of other specified parts of digestive tract; Z91.041 Radiographic dye allergy status; Z95.1 Presence of aortocoronary bypass graft; Z95.810 Presence of automatic (implantable) cardiac defibrillator; Z86.010 Personal history of colon polyps
CPT/HCPCS: 88305; 45385; 43239; J2001; J2704

== ENCOUNTER 2024-05-10 16:41 | Observation (INO) | payer OTHER ==
--- NOTE | 2024-05-10 17:17 | ED ---
SOB HPI - General Chief Complaint: Shortness of Breath Stated Complaint: cough Time Seen by Provider: 05/10/24 16:55 Source: patient, RN notes reviewed, old records reviewed Mode of arrival: ambulatory Limitations: no limitations - History of Present Illness Initial Comments: This is a 83-year-old male this male presents today for evaluation of cough co ngestion wheezing wheezing unchanged by outpatient treatment including steroids and antibiotics. Patient was remote history of smoking 30 years ago no history of COPD coming in for increasing shortness of breath especially with exertion and also believes he has dysuria and a UTI MD Complaint: shortness of breath, cough -: week(s) Severity: mild Severity scale (1-10): 3 Consistency: constant Improves With: oxygen Worsens With: exertion Context: recent URI, recent illness Associated Symptoms: denies other symptoms - Related Data Home Medications Medication Instructions Recorded Confirmed Clopidogrel [Plavix] 75 mg PO DAILY@1200 11/08/16 05/11/24 Pantoprazole [Protonix] 40 mg PO BID 11/08/16 05/11/24 Rosuvastatin Calcium [Crestor] 40 mg PO HS 11/08/16 05/11/24 Metoprolol Tartrate 25 mg PO BID 07/05/18 05/11/24 Carboxymethylcellulose Sodium 1 drop BOTH EYES QID PRN 01/19/21 05/10/24 [Refresh Tears] Cholecalciferol [Vitamin D3 (25 50 mcg PO DAILY 01/19/21 05/10/24 Mcg = 1000 Iu)] Ferrous Sulfate [Iron (65 MG 325 mg PO DAILY 01/19/21 05/10/24 Elemental)] calcitrioL 0.25 mcg PO MOWEFR 01/19/21 05/11/24 Gabapentin 300 mg PO TID 10/20/21 05/11/24 Ezetimibe [Zetia] 10 mg PO DAILY 05/10/24 05/11/24 Ranolazine [Ranexa] 500 mg PO BID 05/10/24 05/11/24 Bimatoprost [Lumigan 0.01% Ophth 1 drop BOTH EYES HS 05/11/24 05/11/24 Soln] PARoxetine HCL [Paxil] 20 mg PO DAILY 05/11/24 05/11/24 Sacubitril/Valsartan [Entresto 49 0.5 tab PO BID 05/11/24 05/11/24 mg-51 mg Tablet] Previous Rx's Medication Instructions Recorded Furosemide [Lasix] 40 mg PO DAILY 30 Days #30 tablet 05/13/24 methylPREDNISolone Dose Pack 4 mg PO DIRECTED #21 tab 05/13/24 [Medrol Dose Pack] Allergies Allergy/AdvReac Type Severity Reaction Status Date / Time Iodinated Contrast Media Allergy Anaphylaxis Verified 05/10/24 21:11 iodine Allergy Anaphylaxis Verified 05/10/24 21:11 lisinopril Allergy Unknown Verified 05/10/24 21:11 Penicillins Allergy Rash/Hives Verified 05/10/24 21:11 All Over hydromorphone [From Dilaudid] AdvReac Nightmares Verified 05/10/24 21:11 Review of Systems ROS Statement: Those systems with pertinent positive or pertinent negative responses have been documented in the HPI. ROS Other: All systems not noted in ROS Statement are negative. Past Medical History Past Medical History: Atrial Fibrillation, Coronary Artery Disease (CAD), Cancer, Heart Failure, Deep Vein Thrombosis (DVT), GERD/Reflux, Hearing Disorder / Deafness, Hyperlipidemia, Hypertension, Myocardial Infarction ([place]), Osteoarthritis (OA), Sleep Apnea/CPAP/BIPAP Additional Past Medical History / Comment(s): Had a fall last week. Hard of hearing. Right lung - stable pulmonary nodule. Hx internal bleed, went unresponsive and was transfused. No device use for Sleep Apnea. Hx DVT right leg . Hx diverticular disease/polyps. Hx prostate cancer with biopsies/then cancer was gone. Hx 2 lumbar vertebral fractures, chronic back pain, "left arm - muscle loose, not having it repaired." Last Myocardial Infarction Date:: 1989 History of Any Multi-Drug Resistant Organisms: None Reported Past Surgical History: AICD, Appendectomy, Coronary Bypass/CABG, Heart Catheterization, Heart Catheterization With Stent, Joint Replacement, Orthopedic Surgery Additional Past Surgical History / Comment(s): 2005 AICD ([employer]) with 2 battery replacements/last battery change was in 2019, PCI/multiple stents, "40+ stents, can't have anymore stents placed", coronary angioplasties, prostate biopsies, colonoscopy, bilateral total knee replacements, bilateral cataracts removed. Past Anesthesia/Blood Transfusion Reactions: No Reported Reaction Additional Past Anesthesia/Blood Transfusion Reaction / Comment(s): Pt has had blood transfusions without reaction. "Contrast Dye will kill me". Date of Last Stent Placement:: 2019 Type of Cardiac Device: AICD Device Placement Date:: 2005 Past Psychological History: Anxiety Smoking Status: Former smoker Past Alcohol Use History: None Reported Past Drug Use History: None Reported - Past Family History Father Family Medical History: Myocardial Infarction ([place]) Additional Family Medical History / Comment(s): Father of a [place] at the age of 63yrs. Mother Additional Family Medical History / Comment(s): Mother in bed. She was a heavy smoker. Brother(s) Family Medical History: Cancer Additional Family Medical History / Comment(s): One brother had colon cancer, another brother had colon and pancreatic cancer. Sister(s) Family Medical History: Cancer Additional Family Medical History / Comment(s): Colon cancer. General Exam Limitations: no limitations General appearance: alert, in no apparent distress Head exam: Present: atraumatic, normocephalic, normal inspection Eye exam: Present: normal appearance, PERRL, EOMI. Absent: scleral icterus, conjunctival injection, periorbital swelling ENT exam: Present: normal exam, mucous membranes moist Neck exam: Present: normal inspection. Absent: tenderness, meningismus, lymphadenopathy Respiratory exam: Present: normal lung sounds bilaterally. Absent: respiratory distress, wheezes, rales, rhonchi, stridor Cardiovascular Exam: Present: regular rate, normal rhythm, normal heart sounds. Absent: systolic murmur, diastolic murmur, rubs, gallop, clicks GI/Abdominal exam: Present: soft, normal bowel sounds. Absent: distended, tenderness, guarding, rebound, rigid Extremities exam: Present: normal inspection, full ROM, normal capillary refill. Absent: tenderness, pedal edema, joint swelling, calf tenderness Back exam: Present: normal inspection Neurological exam: Present: alert, oriented X3, CN II-XII intact Psychiatric exam: Present: normal affect, normal mood Skin exam: Present: warm, dry, intact, normal color. Absent: rash Course Vital Signs 05/10/24 05/10/24 05/10/24 16:52 17:26 17:51 Temperature 98.4 F Pulse Rate 84 75 72 Pulse Rate [ Hearing Stenographer ] Respiratory 24 20 Rate Blood Pressure 106/66 116/70 Blood Pressure [Right Arm] O2 Sat by Pulse 97 96 Oximetry 05/10/24 05/10/24 05/10/24 18:02 18:33 18:41 Temperature Pulse Rate 80 66 70 Pulse Rate [ Hearing Stenographer ] Respiratory Rate Blood Pressure Blood Pressure [Right Arm] O2 Sat by Pulse Oximetry 05/10/24 05/10/24 05/10/24 19:18 20:38 20:49 Temperature Pulse Rate 70 75 78 Pulse Rate [ Hearing Stenographer ] Respiratory 22 Rate Blood Pressure 112/61 Blood Pressure [Right Arm] O2 Sat by Pulse 98 Oximetry 05/10/24 22:35 Temperature Pulse Rate Pulse Rate [ 69 Hearing Stenographer ] Respiratory 18 Rate Blood Pressure Blood Pressure 109/59 [Right Arm] O2 Sat by Pulse 95 Oximetry - Reevaluation(s) Reevaluation #1: 05/10/24 17:16 Records reviewed Reevaluation #2: 05/10/24 17:16 Patient symptoms improved Reevaluation #3: 05/10/24 17:16 Patient informed of results and questions answered Reevaluation #4: Was pt. sent in by a medical professional or institution (, PA, ASSISTANT CITY ATTORNEY, urgent care, hospital, or shelter...) When possible be specific @ -no Did you speak to anyone other than the patient for history (EMS, parent, family, police, friend...)? What history was obtained from this source @ -no Did you review nursing and triage notes (agree or disagree)? Why? @ -agree Are old charts reviewed (outside hosp., previous admission, EMS record, old EKG, old radiological studies, urgent care reports/EKG's, shelter records)? Re port findings @ -yes Differential Diagnosis (chest pain, altered mental status, abdominal pain women, abdominal pain men, vaginal bleeding, weakness, fever, dyspnea, syncope, headache, dizziness, GI bleed, back pain, seizure, CVA, palpatations, mental health, musculoskeletal)? @ -prior EKG interpreted by me (3pts min.). @ -yes X-rays interpreted by me (1pt min.). @ -yes negative for acute disease CT interpreted by me (1pt min.). @ -no U/S interpreted by me (1pt. min.). @ -no What testing was considered but not performed or refused? (CT, X-rays, U/S, labs)? Why? @ -none What meds were considered but not given or refused? Why? @ -none Did you discuss the management of the patient with other professionals (professionals i.e. , PA, ASSISTANT CITY ATTORNEY, lab, RT, psych nurse, psychosocial rehabilitation counselor, linoleum tile layer, teacher, jail officer, bilingual patient support caseworker)? Give summary @ -no Was smoking cessation discussed for >3mins.? @ -no Was critical care preformed (if so, how long)? @ -yes31 Were there social determinants of health that impacted care today? How? (Homelessness, low income, unemployed, alcoholism, drug addiction, transportation, low edu. Level, literacy, decrease access to med. care, retirement, rehab)? @ -none Was there de-escalation of care discussed even if they declined (Discuss DNR or withdrawal of care, Hospice)? DNR status @ -no What co-morbidities impacted this encounter? (DM, HTN, Smoking, COPD, CAD, Cancer, CVA, ARF, Chemo, Hep., AIDS, mental health diagnosis, sleep apnea, morbid obesity)? @ -none Was patient admitted / discharged? Hospital course, mention meds given and route, prescriptions, significant lab abnormalities, going to OR and other pertinent info. @ - 83 male to ER for persistent shortness of breath and dyspnea despite outpatient steroids and antibiotics. Patient will be admitted for breathing treatments and steroids Admitted Undiagnosed new problem with uncertain prognosis? @ -no Drug Therapy requiring intensive monitoring for toxicity (Heparin, Nitro, Insulin, Cardizem)? @ -no Were any procedures done? @ -no Diagnosis/symptom? @ -COPD but exacerbation Acute, or Chronic, or Acute on Chronic? @ -Acute Uncomplicated (without systemic symptoms) or Complicated (systemic symptoms)? @ -Complicated Side effects of treatment? @ -no Exacerbation, Progression, or Severe Exacerbation? @ -exacerbation Poses a threat to life or bodily function? How? (Chest pain, [place], [place], pneumonia, PE, COPD, DKA, ARF, appy, cholecystitis, CVA, Diverticulitis, Homicidal, Suicida l, threat to staff... and all critical care pts) @ -yes Reevaluation #5: Differential Dyspnea: Coronary syndrome, arrhythmia, tamponade, asthma, COPD, pulmonary embolism, p neumonia, pneumothorax, pulmonary effusion, anaphylaxis, diabetic ketoacidosis, flailed chest, pulmonary contusion, diaphragmatic rupture, anemia, neuromuscular, this is not meant to be an all-inclusive list. - Consultations Consultation #1: Spoke with sound who agrees to admit this patient Medical Decision Making - Medical Decision Making 83 male to ER for persistent shortness of breath and dyspnea despite outpatient steroids and antibiotics. Patient will be admitted for breathing treatments and steroids - Lab Data Result diagrams: 05/12/24 03:31 05/12/24 03:31 Lab Results 05/10/24 05/10/24 05/10/24 Range/Units 17:17 17:17 17:17 WBC 11.2 H (3.8-10.6) k/uL RBC 3.83 L (4.30-5.90) m/uL Hgb 12.1 L (13.0-17.5) gm/dL Hct 37.6 L (39.0-53.0) % MCV 98.2 (80.0-100.0) fL MCH 31.5 (25.0-35.0) pg MCHC 32.1 (31.0-37.0) g/dL RDW 16.2 H (11.5-15.5) % Plt Count 263 (150-450) k/uL MPV 7.3 Neutrophils % 75 % Lymphocytes % 12 % Monocytes % 7 % Eosinophils % 4 % Basophils % 0 % Neutrophils # 8.4 H (1.3-7.7) k/uL Lymphocytes # 1.3 (1.0-4.8) k/uL Monocytes # 0.8 (0-1.0) k/uL Eosinophils # 0.4 (0-0.7) k/uL Basophils # 0.1 (0-0.2) k/uL Hypochromasia Slight Anisocytosis Slight PT 11.1 (10.0-12.5) sec INR 1.0 (<1.2) APTT 21.1 L (22.0-30.0) sec Sodium 138 (137-145) mmol/L Potassium 4.0 (3.5-5.1) mmol/L Chloride 109 H (98-107) mmol/L Carbon Dioxide 24 (22-30) mmol/L Anion Gap 5 mmol/L BUN 19 (9-20) mg/dL Creatinine 1.24 (0.66-1.25) mg/dL Est GFR (CKD-EPI)AfAm 63 (>60 ml/min/1.73 sqM) Est GFR (CKD-EPI)NonAf 55 (>60 ml/min/1.73 sqM) Glucose 86 (74-99) mg/dL Calcium 9.4 (8.4-10.2) mg/dL Magnesium 2.1 (1.6-2.3) mg/dL Total Bilirubin 0.9 (0.2-1.3) mg/dL AST 21 (17-59) U/L ALT 18 (4-49) U/L Alkaline Phosphatase 48 (38-126) U/L Troponin I (0.000-0.034) ng/mL NT-Pro-B Natriuret Pep 2080 pg/mL Total Protein 6.5 (6.3-8.2) g/dL Albumin 4.4 (3.5-5.0) g/dL Urine Color Urine Appearance (Clear) Urine pH (5.0-8.0) Ur Specific Stewart (1.001-1.035) Urine Protein (Negative) Urine Glucose (UA) (Negative) Urine Ketones (Negative) Urine Blood (Negative) Urine Nitrite (Negative) Urine Bilirubin (Negative) Urine Urobilinogen (<2.0) mg/dL Ur Leukocyte Esterase (Negative) Urine RBC (0-5) /hpf Urine WBC (0-5) /hpf Ur Squamous Epith Cells (0-4) /hpf Urine Mucus (None) /hpf Influenza Type A (PCR) (Not Detectd) Influenza Type B (PCR) (Not Detectd) RSV (PCR) (Not Detectd) SARS-CoV-2 (PCR) (Not Detectd) 05/10/24 05/10/24 05/10/24 Range/Units 17:17 17:17 17:17 WBC (3.8-10.6) k/uL RBC (4.30-5.90) m/uL Hgb (13.0-17.5) gm/dL Hct (39.0-53.0) % MCV (80.0-100.0) fL MCH (25.0-35.0) pg MCHC (31.0-37.0) g/dL RDW (11.5-15.5) % Plt Count (150-450) k/uL MPV Neutrophils % % Lymphocytes % % Monocytes % % Eosinophils % % Basophils % % Neutrophils # (1.3-7.7) k/uL Lymphocytes # (1.0-4.8) k/uL Monocytes # (0-1.0) k/uL Eosinophils # (0-0.7) k/uL Basophils # (0-0.2) k/uL Hypochromasia Anisocytosis PT (10.0-12.5) sec INR (<1.2) APTT (22.0-30.0) sec Sodium (137-145) mmol/L Potassium (3.5-5.1) mmol/L Chloride (98-107) mmol/L Carbon Dioxide (22-30) mmol/L Anion Gap mmol/L BUN (9-20) mg/dL Creatinine (0.66-1.25) mg/dL Est GFR (CKD-EPI)AfAm (>60 ml/min/1.73 sqM) Est GFR (CKD-EPI)NonAf (>60 ml/min/1.73 sqM) Glucose (74-99) mg/dL Calcium (8.4-10.2) mg/dL Magnesium (1.6-2.3) mg/dL Total Bilirubin (0.2-1.3) mg/dL AST (17-59) U/L ALT (4-49) U/L Alkaline Phosphatase (38-126) U/L Troponin I 0.019 (0.000-0.034) ng/mL NT-Pro-B Natriuret Pep pg/mL Total Protein (6.3-8.2) g/dL Albumin (3.5-5.0) g/dL Urine Color Yellow Urine Appearance Clear (Clear) Urine pH 5.5 (5.0-8.0) Ur Specific Stewart 1.029 (1.001-1.035) Urine Protein 1+ H (Negative) Urine Glucose (UA) Negative (Negative) Urine Ketones Negative (Negative) Urine Blood Negative (Negative) Urine Nitrite Negative (Negative) Urine Bilirubin Negative (Negative) Urine Urobilinogen 2.0 (<2.0) mg/dL Ur Leukocyte Esterase Negative (Negative) Urine RBC 2 (0-5) /hpf Urine WBC 4 (0-5) /hpf Ur Squamous Epith Cells 1 (0-4) /hpf Urine Mucus Few H (None) /hpf Influenza Type A (PCR) Not Detected (Not Detectd) Influenza Type B (PCR) Not Detected (Not Detectd) RSV (PCR) Not Detected (Not Detectd) SARS-CoV-2 (PCR) Not Detected (Not Detectd) - EKG Data -: EKG Interpreted by Me (EKG is paced 75 VT 236 QRS 158 QTc 429) - Radiology Data Radiology results: report reviewed (Chest x-ray is negative for acute disease), image reviewed Critical Care Time Critical Care Time: Yes Total Critical Care Time: 31 Disposition Clinical Impression: Dyspnea, Acute exacerbation of chronic obstructive pulmonary disease, Acute respiratory failure, Hypoxia Disposition: ADMITTED IP TO THIS [facility] Condition: Stable Is patient prescribed a controlled substance at d/c from ED?: No Time of Disposition: 20:10
[2024-05-10] MEDS: SODIUM CHLORIDE 0.9% 1,000 ML IV STA (17:18)
--- NOTE | 2024-05-10 17:50 | XR ---
EXAMINATION TYPE: XR chest 1V portable DATE OF EXAM: 05/10/2024 HISTORY: Shortness of breath. COMPARISON: 09/30/2023 TECHNIQUE: Single view of the chest is submitted. FINDINGS: Demonstrated are scattered senescent parenchymal change. There is no evidence for focal infiltrate. The heart is stable. Hilar and mediastinal structures are within normal limits. Degenerative changes are seen of the dorsal spine. IMPRESSION: 1. Chronic changes without evidence for acute pulmonary disease. [facility], , 05/10/2024 5:48 PM
[2024-05-10] MEDS: IPRATROPIUM-ALBUTEROL 3 ML NEB INHALATION STA ×3 (17:51→20:38)
[2024-05-10 17:56] LABS: Anisocytosis Slight; Basophils # (A) 0.1 k/uL (0-0.2); Basophils % (A) 0 %; Eosinophils # (A) 0.4 k/uL (0-0.7); Eosinophils % (A) 4 %; HCT 37.6 % (39.0-53.0); HGB 12.1 gm/dL (13.0-17.5); Hypochromasia Slight; Lymphocytes # (A) 1.3 k/uL (1.0-4.8); Lymphocytes % (A) 12 %; MCH 31.5 pg (25.0-35.0); MCHC 32.1 g/dL (31.0-37.0); MCV 98.2 fL (80.0-100.0); Mean Platelet Volume 7.3; Monocytes # (A) 0.8 k/uL (0-1.0); Monocytes % (A) 7 %; Neutrophils # (A) 8.4 k/uL (1.3-7.7); Neutrophils % (A) 75 %; Platelet Count 263 k/uL (150-450); RBC 3.83 m/uL (4.30-5.90); RDW 16.2 % (11.5-15.5); WBC 11.2 k/uL (3.8-10.6)
[2024-05-10 18:00] LABS: Appearance,Urine Clear (Clear); Bilirubin,Urine Negative (Negative); Blood,Urine Negative (Negative); Color,Urine Yellow; Glucose,Urine (UA) Negative (Negative); Ketones,Urine Negative (Negative); Leukocyte Esterase,Urine Negative (Negative); Mucus,Urine Few /hpf; Nitrite,Urine Negative (Negative); PH, Urine 5.5 (5.0-8.0); Protein,Urine 1+ (Negative); RBC,Urine 2 /hpf (0-5); Specific Gravity,Urine 1.029 (1.001-1.035); Squamous Epithelial Cell,Urine 1 /hpf (0-4); WBC,Urine 4 /hpf (0-5)
[2024-05-10 18:17] LABS: ALT 18 U/L (4-49); AST 21 U/L (17-59); African American GFR (CKD) 63 (>60 ml/min/1.73 sqM); Albumin 4.4 g/dL (3.5-5.0); Alkaline Phosphatase 48 U/L (38-126); Anion Gap 5 mmol/L; Blood Urea Nitrogen 19 mg/dL (9-20); Calcium 9.4 mg/dL (8.4-10.2); Carbon Dioxide 24 mmol/L (22-30); Chloride 109 mmol/L (98-107); Glucose 86 mg/dL (74-99); Magnesium 2.1 mg/dL (1.6-2.3); Non-African American GFR(CKD) 55 (>60 ml/min/1.73 sqM); Sodium 138 mmol/L (137-145); Total Bilirubin 0.9 mg/dL (0.2-1.3); Total Protein 6.5 g/dL (6.3-8.2)
[2024-05-10 18:22] LABS: Prothrombin Time 11.1 sec (10.0-12.5)
[2024-05-10 18:25] LABS: NT-Pro-B-Type Natriuretic Pept 2080 pg/mL
[2024-05-10 18:31] LABS: Partial Thromboplastin Time 21.1 sec (22.0-30.0)
[2024-05-10] MEDS: DEXAMETHASONE SOD PHOSPHATE 10 MG/ML 1 ML VIAL IVP STA (19:14)
[2024-05-10] MEDS ORDERED: NALOXONE 0.4 MG/ML 1 ML VIAL IV PRN (20:04)
[2024-05-10] MEDS ORDERED: NALOXONE 0.4 MG/ML 1 ML VIAL IVP PRN (20:04)
[2024-05-10] MEDS ORDERED: ACETAMINOPHEN TAB 325 MG TAB PO PRN (20:04)
[2024-05-10] MEDS ORDERED: ONDANSETRON 4 MG/2 ML VIAL IVP PRN (20:04)
[2024-05-10] MEDS ORDERED: MORPHINE SULFATE 4 MG/ML SYRINGE IV PRN (20:04)
[2024-05-10] MEDS ORDERED: BENZONATATE 100 MG CAP PO PRN (20:06)
[2024-05-10] MEDS ORDERED: IPRATROPIUM-ALBUTEROL 3 ML NEB INHALATION PRN (20:22)
[2024-05-10] MEDS: ALBUTEROL NEBULIZED 2.5 MG/3 ML INHALATION STA (20:36)
[2024-05-10] MEDS: SODIUM CHLORIDE 0.9% 1,000 ML IV SCH (21:05)
[2024-05-10] MEDS: methylPREDNISolone SOD SUCCI 125 MG/2 ML VIAL IV STA (21:06)
[2024-05-10] MEDS: KETOROLAC 15 MG/ML 1 ML VIAL IVP STA (21:06)
[2024-05-10] MEDS: BENZONATATE 100 MG CAP PO STA (21:07)
[2024-05-11] MEDS: methylPREDNISolone SOD SUCCI 125 MG/2 ML VIAL IV SCH (00:18)
--- NOTE | 2024-05-11 02:39 | P.HPIM ---
History of Present Illness H&P Date: 05/10/24 Patient is a 83-year-old male with a PMH of CAD status post multiple stents and CABG, systolic CHF with EF 30 to 35% (on echo from 10/2021), status post atrial pacemaker, hypertension, and hyperlipidemia who presents to the emergency room with complaints of shortness of breath. Patient notes his symptoms started roughly 3 weeks ago and have gradually progressed. He was seen at an outpatient clinic and was prescribed oral steroids on 04/27/2024 which have not alleviated his symptoms. He denies experiencing lower extremity pain or swelling. Also denies recent travel.. He denies chest discomfort, orthopnea, PND, nausea, vomiting, dizziness. Denies fever, chills. Patient denies ever being diagnosed with COPD but did smoke for several decades when he was younger, quitting in 1989. In the emergency room a chest x-ray was unremarkable with EKG showing a paced rhythm at 75 bpm with a left bundle branch block as reviewed by me. Laboratory evaluation revealed troponin 0.019, proBNP 2079, with respiratory viral panel negative. ED documentation reviewed and case discussed with ED provider. Review of systems: Pertinent positives and negatives as discussed in HPI, a complete review of systems was performed and all other systems are negative. Physical examination: Vital signs reviewed General: non toxic, no distress, appears at stated age, obese Derm: no unusual rashes/lesions, warm Head: atraumatic, normocephalic, symmetric Eyes: EOMI, no lid lag, anicteric sclera, pupils equal round reactive to light ENT: Nose and ears atraumatic Neck: No cervical lymphadenopathy, trachea midline, supple Mouth: no lip lesion, mucus membranes moist Cardiovascular: S1S2 reg, no murmur, positive dorsalis pedis pulse bilateral, no edema Lungs: Bilateral wheezing with scattered rhonchi and mild bibasilar rales, no accessory muscle use Abdominal: soft, nontender to palpation, no guarding Ext: muscle strength 5 out of 5 in all 4 extremities grossly, no gross muscle atrophy, no contractures, Neuro: CN II-XI grossly intact, no gross focal neuro deficits Psych: Alert, oriented, appropriate affect Assessment: Shortness of breath, suspect COPD exacerbation, less likely CHF Leukocytosis, suspect may be reactive secondary to prednisone use Chronic conditions: CAD status post stents and CABG, hypertension, hyperlipidemia Imaging: In the emergency room a chest x-ray was unremarkable with EKG showing a paced rhythm at 75 bpm with a left bundle branch block as reviewed by me. Data Review: Laboratory evaluation revealed troponin 0.019, proBNP 2079, with respiratory viral panel negative. Plan: Continue with DuoNebs [id number] and as needed Continue Solu-Medrol 60 mg every 6 hourly Obtain echocardiogram Follow-up D-dimer levels Pulmonary consulted Resume home medications DVT prophylaxis: Lovenox subcu The patient is admitted with an anticipated [] than 2 midnight stay for evaluation of [] CODE STATUS: Full Code Discussed with: Patient Anticipated discharge place: Home Past Medical History Past Medical History: Atrial Fibrillation, Coronary Artery Disease (CAD), Cancer, Heart Failure, Deep Vein Thrombosis (DVT), GERD/Reflux, Hearing Disorder / Deafness, Hyperlipidemia, Hypertension, Myocardial Infarction (ND), Osteoart hritis (OA), Sleep Apnea/CPAP/BIPAP Additional Past Medical History / Comment(s): Had a fall last week. Hard of hearing. Right lung - stable pulmonary nodule. Hx internal bleed, went unresponsive and was transfused. No device use for Sleep Apnea. Hx DVT right leg. Hx diverticular disease/polyps. Hx prostate cancer with biopsies/then cancer was gone. Hx 2 lumbar vertebral fractures, chronic back pain, "left arm - muscle loose, not having it repaired." Last Myocardial Infarction Date:: 1989 History of Any Multi-Drug Resistant Organisms: None Reported Past Surgical History: AICD, Appendectomy, Coronary Bypass/CABG, Heart Catheterization, Heart Catheterization With Stent, Joint Replacement, Orthopedic Surgery Additional Past Surgical History / Comment(s): 2005 AICD ([employer]) with 2 battery replacements/last battery change was in 2019, PCI/multiple stents, "40+ stents, can't have anymore stents placed", coronary angioplasties, prostate biopsies, colonoscopy, bilateral total knee replacements, bilateral cataracts removed. Past Anesthesia/Blood Transfusion Reactions: No Reported Reaction Additional Past Anesthesia/Blood Transfusion Reaction / Comment(s): Pt has had blood transfusions without reaction. "Contrast Dye will kill me". Date of Last Stent Placement:: 2019 Type of Cardiac Device: AICD Device Placement Date:: 2005 Smoking Status: Former smoker - Past Family History Father Family Medical History: Myocardial Infarction (ND) Additional Family Medical History / Comment(s): Father of a ND at the age of 63yrs. Mother Additional Family Medical History / Comment(s): Mother in bed. She was a heavy smoker. Brother(s) Family Medical History: Cancer Additional Family Medical History / Comment(s): One brother had colon cancer, another brother had colon and pancreatic cancer. Sister(s) Family Medical History: Cancer Additional Family Medical History / Comment(s): Colon cancer. Medications and Allergies Home Medications Medication Instructions Recorded Confirmed Type Clopidogrel [Plavix] 75 mg PO DIRECTED 11/08/16 05/10/24 History Pantoprazole [Protonix] 40 mg PO DIRECTED 11/08/16 05/10/24 History Rosuvastatin Calcium [Crestor] 40 mg PO DIRECTED 11/08/16 05/10/24 History Metoprolol Tartrate 25 mg PO DIRECTED 07/05/18 05/10/24 History Carboxymethylcellulose Sodium 1 drop BOTH EYES QID PRN 01/19/21 05/10/24 History [Refresh Tears] Cholecalciferol [Vitamin D3 (25 50 mcg PO DAILY 01/19/21 05/10/24 History Mcg = 1000 Iu)] Ferrous Sulfate [Iron (65 MG 325 mg PO DAILY 01/19/21 05/10/24 History Elemental)] calcitrioL 0.25 mcg PO DIRECTED 01/19/21 05/10/24 History Gabapentin 300 mg PO DIRECTED 10/20/21 05/10/24 History Lumigan (Unknown Dose) 1 drop BOTH EYES DIRECTED 11/15/23 05/10/24 History PARoxetine [Paxil] 20 mg PO DIRECTED 11/15/23 05/10/24 History Ezetimibe [Zetia] 10 mg PO DIRECTED 05/10/24 05/10/24 History Ranolazine [Ranexa] 500 mg PO DIRECTED 05/10/24 05/10/24 History Sacubitril/Valsartan [Entresto 24 1 tab PO DIRECTED 05/10/24 05/10/24 History mg-26 mg Tablet] Allergies Allergy/AdvReac Type Severity Reaction Status Date / Time Iodinated Contrast Media Allergy Anaphylaxis Verified 05/10/24 21:11 iodine Allergy Anaphylaxis Verified 05/10/24 21:11 lisinopril Allergy Unknown Verified 05/10/24 21:11 Penicillins Allergy Rash/Hives Verified 05/10/24 21:11 All Over hydromorphone [From Dilaudid] AdvReac Nightmares Verified 05/10/24 21:11 Physical Exam Vitals: Vital Signs Temp Pulse Pulse Resp BP BP Pulse Ox 05/11/24 01:23 97.4 F L 88 19 134/74 97 05/10/24 22:35 69 18 109/59 95 05/10/24 20:49 78 05/10/24 20:38 75 05/10/24 19:18 70 22 112/61 98 05/10/24 18:41 70 05/10/24 18:33 66 05/10/24 18:02 80 05/10/24 17:51 72 05/10/24 17:26 75 20 116/70 96 05/10/24 16:52 98.4 F 84 24 106/66 97 Intake and Output 05/10/24 05/10/24 05/11/24 14:59 22:59 06:59 Other: # Voids 1 Weight 88.904 kg Results CBC & Chem 7: 05/10/24 17:17 05/10/24 17:17 Labs: Abnormal Lab Results - Last 24 Hours (Table) 05/10/24 05/10/24 05/10/24 Range/Units 17:17 17:17 17:17 WBC 11.2 H (3.8-10.6) k/uL RBC 3.83 L (4.30-5.90) m/uL Hgb 12.1 L (13.0-17.5) gm/dL Hct 37.6 L (39.0-53.0) % RDW 16.2 H (11.5-15.5) % Neutrophils # 8.4 H (1.3-7.7) k/uL APTT 21.1 L (22.0-30.0) sec Chloride 109 H (98-107) mmol/L Urine Protein (Negative) Urine Mucus (None) /hpf 05/10/24 Range/Units 17:17 WBC (3.8-10.6) k/uL RBC (4.30-5.90) m/uL Hgb (13.0-17.5) gm/dL Hct (39.0-53.0) % RDW (11.5-15.5) % Neutrophils # (1.3-7.7) k/uL APTT (22.0-30.0) sec Chloride (98-107) mmol/L Urine Protein 1+ H (Negative) Urine Mucus Few H (None) /hpf Thrombosis Risk Factor Assmnt - Choose All That Apply Any of the Below Risk Factors Present?: Yes Each Factor Represents 1 point: Obesity (BMI >25) Other Risk Factors: Yes Each Risk Factor Represents 3 Points: Age 75 years or older, History of DVT/PE Thrombosis Risk Factor Assessment Total Risk Factor Score: 7 Thrombosis Risk Factor Assessment Level: High Risk
[2024-05-11] MEDS: PANTOPRAZOLE 40 MG TABLET PO SCH (06:39)
[2024-05-11] MEDS: IPRATROPIUM-ALBUTEROL 3 ML NEB INHALATION SCH (07:53)
[2024-05-11] MEDS ORDERED: ALBUTEROL NEBULIZED 1.25 MG/3 ML INHALATION SCH (08:00)
[2024-05-11] MEDS: PARoxetine 20 MG TAB PO SCH (08:24)
[2024-05-11] MEDS: RANOLAZINE 500 MG TAB.ER.12H PO SCH (08:24)
[2024-05-11] MEDS: SACUBITRIL/VALSARTAN 24 MG-26 MG TABLET PO SCH (08:24)
[2024-05-11] MEDS: FERROUS SULFATE 325 MG TAB PO SCH (08:24)
[2024-05-11] MEDS: ENOXAPARIN 40 MG/0.4 ML SYRINGE SQ SCH (08:24)
[2024-05-11] MEDS: METOPROLOL TARTRATE 25 MG TAB PO SCH (08:24)
[2024-05-11] MEDS: CLOPIDOGREL 75 MG TAB PO SCH (08:24)
[2024-05-11] MEDS: GABAPENTIN 300 MG CAP PO SCH (08:26)
[2024-05-11 08:45] LABS: ALT 14 U/L (10-49); AST 13 U/L (14-35); Albumin 3.9 g/dL (3.8-4.9); Alkaline Phosphatase 48 U/L (41-126); BUN/Creat Ratio 16.42 Ratio (12.00-20.00); Blood Urea Nitrogen 19.7 mg/dL (9.0-27.0); Calcium 8.6 mg/dL (8.7-10.3); Carbon Dioxide 20.1 mmol/L (21.6-31.8); Chloride 109 mmol/L (96-109); Globulin 1.5 g/dL (1.6-3.3); Glucose 181 mg/dL (70-110); Phosphorus 2.5 mg/dL (2.4-5.1); Potassium 4.6 mmol/L (3.5-5.5); Sodium 139 mmol/L (135-145); Total Bilirubin 0.5 mg/dL (0.3-1.2); Total Protein 5.4 g/dL (6.2-8.2)
[2024-05-11 08:51] LABS: Basophils # (A) 0.01 X 10*3/uL (0.00-0.10); Basophils % (A) 0.2 %; Eosinophils # (A) 0 X 10*3/uL (0.04-0.35); Eosinophils % (A) 0 %; HCT 32.6 % (39.6-50.0); HGB 10.7 g/dL (13.0-17.0); Lymphocytes # (A) 0.52 X 10*3/uL (0.90-5.00); Lymphocytes % (A) 8.5 %; MCH 31.4 pg (27.0-32.0); MCHC 32.8 g/dL (32.0-37.0); MCV 95.6 FL (80.0-97.0); Mean Platelet Volume 10.1 FL (9.5-12.2); Monocytes # (A) 0.03 X 10*3/uL (0.20-1.00); Monocytes % (A) 0.5 %; NRBC Per 100 WBC 0 X 10*3/uL (0.00-0.01); Neutrophils # (A) 5.56 X 10*3/uL (1.80-7.70); Neutrophils % (A) 90.3 %; Platelet Count 205 X 10*3/uL (140-440); RBC 3.41 X 10*6/uL (4.40-5.60); RDW 15.7 % (11.5-14.5); WBC 6.15 X 10*3/uL (4.50-10.00)
[2024-05-11] MEDS ORDERED: ARTIFICIAL TEARS-HYPROMELLOSE DROPS 15 ML BTL BOTH EYES PRN (08:52)
--- NOTE | 2024-05-11 09:31 | US ---
EXAMINATION TYPE: US venous doppler duplex LE DATE OF EXAM: 05/11/2024 8:47 AM COMPARISON: US 2012 CLINICAL INDICATION: Male, 83 years old with history of Dyspnea, Elevated d dimer; Elevated D dimer. Dyspnea. Patient is on Plavix. SIDE PERFORMED: Bilateral TECHNIQUE: The lower extremity deep venous system is examined utilizing real time linear array sonog barbara with graded compression, color doppler sonography, and spectral doppler. VESSELS IMAGED: Common Femoral Vein Deep Femoral Vein Greater Saphenous Vein * Femoral Vein Popliteal Vein Small Saphenous Vein * Proximal Calf Veins (* superficial vessels) Right Leg: No evidence of DVT. Left Leg: No evidence of DVT. IMPRESSION: No evidence for DVT. [facility], , 05/11/2024 9:28 AM
[2024-05-11] MEDS ORDERED: NON FORMULARY DRUG (Paroxetine Hcl [Paxil] 40 MG Tablet) PO SCH (11:45)
--- NOTE | 2024-05-11 12:58 | NM ---
EXAMINATION TYPE: NM pul vent and perfuse DATE OF EXAM: 05/11/2024 CLINICAL INDICATION: Male, 83 years old with history of Dyspnea; COMPARISON: NONE TECHNIQUE: Utilizing inhalation of 69.4 mCi Tc 99m DTPA aerosol and intravenous injection of 5.0 mCi of Tc 99m MAA, ventilation and perfusion images are acquired post injection in multiple projections. FINDINGS: Normal radiotracer distribution is noted in the lungs. There is no evidence of mismatched defects. IMPRESSION: Very low probability for pulmonary embolism. [facility], , 05/11/2024 12:56 PM
--- NOTE | 2024-05-11 13:05 | P.CNPUL ---
History of Present Illness Consult date: 05/11/24 Requesting physician: Taylor Ko Reason for consult: dyspnea, cough Chief complaint: Cough, congestion, shortness of breath History of present illness: This is an 83-year-old male patient who follows at the [facility] for his primary care needs. He has a history of coronary artery disease VS bypass grafting and multiple angioplasties, obstructive sleep apnea, former smoker, congestive heart failure, atrial fibrillation previously on Eliquis, hypertension, hyperlipidemia, pacemaker placement. He presented here to the emergency room with ongoing issues with shortness of breath cough and congestion. He was on steroids on 2 separate occasions without much improvement. Chest x-ray reveals no acute pulmonary process. White count 6.1. Hemoglobin 10.7. Platelets 205. D-dimer 0.75. Sodium 139. Potassium 4.6. Bicarb 20. BUN 20. Creatinine 1.2. Glucose 181. Troponins were negative x 3. proBNP 2079. Viral screen negative. He is seen today in consultation on the regular medical floor. He is currently sitting up in bed. Awake and alert in no acute distress. Maintaining O2 saturations in the 90s on room air. He has been afebrile. Hemodynamically stable. He has some complaints of some left-sided facial tingling and numbness. Review of Systems REVIEW OF SYSTEMS: CONSTITUTIONAL: Denies any recent significant weight loss or weight gain. EYES: Denies change in vision. EARS, NOSE, MOUTH, THROAT: Denies headaches, denies sore throat. CARDIOVASCULAR: Denies chest pain, palpitations or syncopal episodes. RESPIRATORY: Positive for shortness of breath, cough, congestion no hemoptysis. GASTROINTESTINAL: Denies change in appetite, denies abdominal pain GENITOURINARY: Denies hematuria, denies infections. MUSKULOSKELETAL: Denies pain, denies swelling. INTEGUMENTARY: Denies rash, denies eczema. NEUROLOGICAL: Positive for left-sided facial tingling and numbness. PSYCHIATRIC: Denies anxiety, denies depression. HEMATOLOGIC/LYMPHATIC: Denies anemia, denies enlarged lymph nodes. Past Medical History Past Medical History: Atrial Fibrillation, Coronary Artery Disease (CAD), Cancer, Heart Failure, Deep Vein Thrombosis (DVT), GERD/Reflux, Hearing Disorder / Deafness, Hyperlipidemia, Hypertension, Myocardial Infarction (MS), Osteoarthritis (OA), Sleep Apnea/CPAP/BIPAP Additional Past Medical History / Comment(s): Had a fall last week. Hard of hearing. Right lung - stable pulmonary nodule. Hx internal bleed, went unresponsive and was transfused. No device use for Sleep Apnea. Hx DVT right leg. Hx diverticular disease/polyps. Hx prostate cancer with biopsies/then cancer was gone. Hx 2 lumbar vertebral fractures, chronic back pain, "left arm - muscle loose, not having it repaired." Last Myocardial Infarction Date:: 1989 History of Any Multi-Drug Resistant Organisms: None Reported Past Surgical History: AICD, Appendectomy, Coronary Bypass/CABG, Heart Catheterization, Heart Catheterization With Stent, Joint Replacement, Orthopedic Surgery Additional Past Surgical History / Comment(s): 2005 AICD ([employer]) with 2 battery replacements/last battery change was in 2019, PCI/multiple stents, "40+ stents, can't have anymore stents placed", coronary angioplasties, prostate biopsies, colonoscopy, bilateral total knee replacements, bilateral cataracts removed. Past Anesthesia/Blood Transfusion Reactions: No Reported Reaction Additional Past Anesthesia/Blood Transfusion Reaction / Comment(s): Pt has had blood transfusions without reaction. "Contrast Dye will kill me". Date of Last Stent Placement:: 2019 Type of Cardiac Device: AICD Device Placement Date:: 2005 Smoking Status: Former smoker - Past Family History Father Family Medical History: Myocardial Infarction (MS) Additional Family Medical History / Comment(s): Father of a MS at the age of 63yrs. Mother Additional Family Medical History / Comment(s): Mother in bed. She was a heavy smoker. Brother(s) Family Medical History: Cancer Additional Family Medical History / Comment(s): One brother had colon cancer, another brother had colon and pancreatic cancer. Sister(s) Family Medical History: Cancer Additional Family Medical History / Comment(s): Colon cancer. Medications and Allergies Home Medications Medication Instructions Recorded Confirmed Type Clopidogrel [Plavix] 75 mg PO DAILY@1200 11/08/16 05/11/24 History Pantoprazole [Protonix] 40 mg PO BID 11/08/16 05/11/24 History Rosuvastatin Calcium [Crestor] 40 mg PO HS 11/08/16 05/11/24 History Metoprolol Tartrate 25 mg PO BID 07/05/18 05/11/24 History Carboxymethylcellulose Sodium 1 drop BOTH EYES QID PRN 01/19/21 05/10/24 History [Refresh Tears] Cholecalciferol [Vitamin D3 (25 50 mcg PO DAILY 01/19/21 05/10/24 History Mcg = 1000 Iu)] Ferrous Sulfate [Iron (65 MG 325 mg PO DAILY 01/19/21 05/10/24 History Elemental)] calcitrioL 0.25 mcg PO MOWEFR 01/19/21 05/11/24 History Gabapentin 300 mg PO TID 10/20/21 05/11/24 History Ezetimibe [Zetia] 10 mg PO DAILY 05/10/24 05/11/24 History Ranolazine [Ranexa] 500 mg PO BID 05/10/24 05/11/24 History Bimatoprost [Lumigan 0.01% Ophth 1 drop BOTH EYES HS 05/11/24 05/11/24 History Soln] PARoxetine HCL [Paxil] 20 mg PO DAILY 05/11/24 05/11/24 History Sacubitril/Valsartan [Entresto 49 0.5 tab PO BID 05/11/24 05/11/24 History mg-51 mg Tablet] Allergies Allergy/AdvReac Type Severity Reaction Status Date / Time Iodinated Contrast Media Allergy Anaphylaxis Verified 05/10/24 21:11 iodine Allergy Anaphylaxis Verified 05/10/24 21:11 lisinopril Allergy Unknown Verified 05/10/24 21:11 Penicillins Allergy Rash/Hives Verified 05/10/24 21:11 All Over hydromorphone [From Dilaudid] AdvReac Nightmares Verified 05/10/24 21:11 Physical Exam Vitals: Vital Signs Temp Pulse Pulse Pulse Resp BP BP 05/11/24 11:42 84 05/11/24 11:32 84 05/11/24 08:00 16 05/11/24 07:00 97.4 F L 70 16 121/70 05/11/24 01:23 97.4 F L 88 19 134/74 05/10/24 22:35 69 18 109/59 05/10/24 20:49 78 05/10/24 20:38 75 05/10/24 19:18 70 22 112/61 05/10/24 18:41 70 05/10/24 18:33 66 05/10/24 18:02 80 05/10/24 17:51 72 05/10/24 17:26 75 20 116/70 05/10/24 16:52 98.4 F 84 24 106/66 Pulse Ox 05/11/24 11:42 05/11/24 11:32 05/11/24 08:00 05/11/24 07:00 96 05/11/24 01:23 97 05/10/24 22:35 95 05/10/24 20:49 05/10/24 20:38 05/10/24 19:18 98 05/10/24 18:41 05/10/24 18:33 05/10/24 18:02 05/10/24 17:51 05/10/24 17:26 96 05/10/24 16:52 97 Intake and Output 05/10/24 05/11/24 05/11/24 22:59 06:59 14:59 Intake Total 118 Balance 118 Intake: Oral 118 Other: # Voids 1 1 Weight 88.904 kg GENERAL EXAM: Alert, 83-year-old male, on room air, comfortable in no apparent distress. HEAD: Normocephalic. EYES: Normal reaction of pupils, equal size. NOSE: Clear with pink turbinates. THROAT: No erythema or exudates. NECK: No masses, no JVD. CHEST: No chest wall deformity. LUNGS: Equal air entry with no crackles, wheeze, rhonchi or dullness. CVS: S1 and S2 normal with no audible murmur, regular rhythm. ABDOMEN: No hepatosplenomegaly, normal bowel sounds, no guarding or rigidity. SPINE: No scoliosis or deformity SKIN: No rashes CENTRAL NERVOUS SYSTEM: No focal deficits, tone is normal in all 4 extremities. EXTREMITIES: There is no peripheral edema. No clubbing, no cyanosis. Peripheral pulses are intact. Results - Laboratory Findings CBC and BMP: 05/11/24 06:24 05/11/24 06:24 PT/INR, D-dimer PT 11.1 sec (10.0-12.5) 05/10/24 17:17 INR 1.0 (<1.2) 05/10/24 17:17 D-Dimer 0.75 mg/L FEU (<0.60) H 05/11/24 06:24 Abnormal lab findings: Abnormal Labs 05/10/24 05/10/24 05/10/24 17:17 17:17 17:17 WBC 11.2 H RBC 3.83 L Hgb 12.1 L Hct 37.6 L RDW 16.2 H Neutrophils # 8.4 H Lymphocytes # Monocytes # Eosinophils # APTT 21.1 L D-Dimer Chloride 109 H Carbon Dioxide Glucose Calcium AST Total Protein Globulin Urine Protein Urine Mucus 05/10/24 05/11/24 05/11/24 17:17 06:24 06:24 WBC RBC 3.41 L Hgb 10.7 L Hct 32.6 L RDW 15.7 H Neutrophils # Lymphocytes # 0.52 L Monocytes # 0.03 L Eosinophils # 0 L APTT D-Dimer Chloride Carbon Dioxide 20.1 L Glucose 181 H Calcium 8.6 L AST 13 L Total Protein 5.4 L Globulin 1.5 L Urine Protein 1+ H Urine Mucus Few H 05/11/24 06:24 WBC RBC Hgb Hct RDW Neutrophils # Lymphocytes # Monocytes # Eosinophils # APTT D-Dimer 0.75 H Chloride Carbon Dioxide Glucose Calcium AST Total Protein Globulin Urine Protein Urine Mucus - Diagnostic Findings Chest x-ray: image reviewed Assessment and Plan Assessment: Shortness of breath, cough and congestion, failed outpatient treatment at acute exacerbation of chronic obstructive pulmonary disease Left-sided facial tingling and numbness of unclear etiology Former smoker History of coronary artery disease with previous bypass surgery Code history of systolic congestive heart failure History of atrial fibrillation History of AICD placement Hypertension Hyperlipidemia Plan: The patient was seen and evaluated Chest x-ray, labs and medications reviewed Elevated D-dimer Obtain a ventilation/perfusion scan Obtain Dopplers of the lower extremities Continue DuoNeb inhalations, Symbicort Continue IV Solu-Medrol Lovenox for DVT prophylaxis We will continue to follow and make further recommendations based on his clinical status I have personally seen and examined the patient, performed the documentation and the assessment and plan as written. Number of minutes spent on the visit: 20.
--- NOTE | 2024-05-11 13:17 | CA ---
Transthoracic Echo Report Name: Geovani Escobar Age: 83 Gender: M : 1940 Exam Date: 05/11/2024 07:50 Exam Location: [facility] Ht (in): 66 Wt (lb): 196 Ordering Physician: Olvin Jean-Baptiste DO Attending/Referring Phys: [id number], Jerilyn Residential Coordinator Teresita Barnes RDCS Procedure CPT: Indications: sob Cardiac Hx: Technical Quality: Technically difficult study Contrast 1: Definity Total Dose (mL): 2 Contrast 2: Total Dose (mL): MEASUREMENTS (Male / Female) Normal Values 2D ECHO LV Diastolic Diameter PLAX 6.3 cm 4.2 - 5.9 / 3.9 - 5.3 cm LV Systolic Diameter PLAX 5.1 cm IVS Diastolic Thickness 1.1 cm 0.6 - 1.0 / 0.6 - 0.9 cm LVPW Diastolic Thickness 0.9 cm 0.6 - 1.0 / 0.6 - 0.9 cm LV Relative Wall Thickness 0.3 LVOT Diameter 2.4 cm LV Diastolic Volume MOD BP 226.5 cm??? 67 - 155 / 56 - 104 cm??? LV Systolic Volume MOD BP 132.6 cm??? 22 - 58 / 19 - 49 cm??? LV Ejection Fraction MOD BP 41.5 % >= 55 % LV Cardiac Index MOD BP 3184.1 cm???/min???m??? LV Diastolic Volume MOD 4C 234.7 cm??? LV Systolic Volume MOD 4C 136.5 cm??? LV Ejection Fraction MOD 4C 41.8 % LV Cardiac Index MOD 4C 3329.3 cm???/min???m??? LV Diastolic Length 4C 9.3 cm LV Systolic Length 4C 8.2 cm LV Diastolic Volume MOD 2C 218.1 cm??? LV Systolic Volume MOD 2C 125.4 cm??? LV Ejection Fraction MOD 2C 42.5 % LV Cardiac Index MOD 2C 3143.7 cm???/min???m??? LV Diastolic Length 2C 9.4 cm LV Systolic Length 2C 7.9 cm LA Volume 93.3 cm??? 18 - 58 / 22 - 52 cm??? LA Volume Index 45.2 cm???/m??? 16 - 28 cm???/m??? Ascending Aorta Diameter 4.1 cm DOPPLER AV Peak Velocity 141.0 cm/s AV Peak Gradient 8.0 mmHg AV Mean Velocity 100.1 cm/s AV Mean Gradient 4.4 mmHg AV Velocity Time Integral 30.9 cm AI Peak Velocity 329.1 cm/s AI Peak Gradient 43.3 mmHg AI Pressure Half Time 344.9 ms LVOT Peak Velocity 94.4 cm/s LVOT Peak Gradient 3.6 mmHg LVOT Velocity Time Integral 20.1 cm LVOT Stroke Volume 93.9 cm??? LVOT Stroke Volume Index 47.3 ml/m??? LVOT Cardiac Index 3182.9 cm???/min???m??? AV Area Cont Eq vti 3.0 cm??? AV Area Cont Eq pk 3.1 cm??? MV Area PHT 4.5 cm??? MR Peak Velocity 502.4 cm/s MR Peak Gradient 101.0 mmHg MR Flow Rate PISA 56.0 cm???/s MR ERO PISA 0.1 cm??? MR Regurgitant Volume PISA 20.3 cm??? Mitral E Point Velocity 68.3 cm/s Mitral A Point Velocity 73.5 cm/s Mitral E to A Ratio 0.9 MV Deceleration Time 170.2 ms TR Peak Velocity 303.6 cm/s TR Peak Gradient 36.9 mmHg Right Atrial Pressure 5.0 mmHg Pulmonary Artery Systolic Pressu 41.9 mmHg Right Ventricular Systolic Press 41.9 mmHg PV Peak Velocity 98.6 cm/s PV Peak Gradient 3.9 mmHg FINDINGS Left Ventricle Left ventricular ejection fraction is estimated at 25-30 %. Mildly increased septal wall thickness. Mildly increased left ventricular diastolic diameter. Severely increased left ventricular diastolic volume. Severely increased left ventricular systolic volume. Right Ventricle Right ventricular dilatation with moderately reduced function. Mild pulmonary hypertension. Right Atrium Right atrial dilatation by visual. Catheter/pacemaker wire in the right atrial cavity. Left Atrium Severely increased left atrial volume. Mildly increased left atrial area. Mitral Valve Mitral valve thickened. No evidence for mitral valve prolapse. No mitral stenosis. Moderate mitral regurgitation. Aortic Valve Trileaflet aortic valve. Aortic valve sclerosis. No aortic stenosis. Mild-to- moderate aortic regurgitation. Tricuspid Valve Structurally normal tricuspid valve. No tricuspid stenosis. [id number] tricuspid regurgitation. Pulmonic Valve Pulmonic valve not well visualized. No pulmonic stenosis. Mild pulmonic regurgitation. Pericardium No pericardial effusion. Aorta Aortic annulus normal. Ascending aorta mildly enlarged. CONCLUSIONS LVEF 25 to 30% Dilated LV cavity with severely reduced global LV systolic function RV dilatation with reduced systolic function PPM wire in RA and RV noticed. Severe biatrial dilatation Moderate MR Moderate AI Previewed by: Dr Cyrus Espinal (Electronically Signed) Final Date: 11 May 2024 13:16
--- NOTE | 2024-05-11 17:43 | P.PN ---
Subjective Progress Note Date: 05/11/24 Hospital course: Patient is a very pleasant 83-year-old male with a past medical history of CAD status post CABG, chronic systolic heart failure status post AICD placement, hypertension, hyperlipidemia, and COPD. He presented to the emergency department with a chief complaint shortness of breath, cough, and congestion. He reports he has been treated outpatient by neuropsychology director for COPD exacerbation and underwent 2 cycles of oral steroids with no improvement. Patient reports worsening shortness of breath at rest and with exertion. Upon arrival to our facility, patient underwent evaluation in the emergency department. Vital signs upon arrival show blood pressure 106/66, heart rate 84, respiratory rate 24, temp 98.4 F, and SpO2 of 97% on room air. EKG completed showing an atrial paced rhythm at 75 bpm with a left bundle branch block. Chest x-ray completed showing chronic changes but negative for acute cardiopulmonary process. Labs completed and reviewed. CBC showing mild leukocytosis with WBC count of 11.2 and stable normocytic anemia with hemoglobin of 12.1. Coagulation profile showing a low PTT of 21.1. BMP showing hyperchloremia with chloride of 109 otherwise normal findings. Magnesium 2.1. Troponin 0.019. proBNP was 2080. Influenza A, influenza B, RSV, and COVID PCR negative. Patient admitted under our services with consultation to cardiology and pulmonology. Physical exam: Vital signs reviewed and stable. General: Nontoxic, no distress and appears stated age. Derm: Skin warm and dry, normal coloration for ethnicity. Head: Atraumatic, normocephalic and symmetric. Eyes: EOM's intact, no lid lag, and anicteric sclera Mouth: no lip lesions, mucus membranes moist Cardiovascular: regular rate and rhythm with normal S1S2, systolic murmur, positive posterior tibial pulses bilaterally, and cap refill < 2 seconds. Lungs: Respirations even, regular, and unlabored on room air. Lungs CTA bilaterally, no rhonchi, no rales, no wheezing, and no accessory muscle usage. Abdominal: soft, nontender to palpation, no guarding, no appreciable organomegaly Ext: ROM intact. No gross muscle atrophy, 1+ pitting bilateral lower extremity edema, no contractures Neuro: Speech clear, face symmetrical and CN II-XII grossly intact with no noted focal neuro deficits Psych: Alert and oriented to person, place, time, and situation. Appropriate and pleasant affect. Assessment and Plan of Care: COPD with acute exacerbation, failed outpatient treatment Mild systolic heart failure exacerbation Bilateral lower extremity edema CAD status post CABG Chronic systolic heart failure Status post permanent pacemaker placement Hypertension Hyperlipidemia -Pulmonary following, reviewed documentation in chart. -Bilateral lower extremity Dopplers completed negative for DVT. -Echocardiogram completed, pending result -Oxygenation to be administered and titrated as needed to maintain SPO2 equal to or greater than 92% -Telemetry monitoring. -Monitor pulse-oximetry -Duonebs scheduled 4 times daily and as needed for SOB and/or wheezing. Continue Symbicort 160-4.5 mcg inhaler 2 puffs twice daily. -Incentive Spirometry -Steroids: Solu-Medrol 60 mg IV every 6 hours -Continue daily medication regimen with atorvastatin 80 mg nightly, Plavix 75 mg daily, Zetia 10 mg nightly, metoprolol 25 mg twice daily, Ranexa 500 mg twice daily, and Entresto 0.5 mg twice daily. Data and imaging reviewed: -Morning labs completed and reviewed. CBC showing mild normocytic anemia with hemoglobin of 10.7 and resolution of previous leukocytosis. D-dimer elevated at 0.75. Pulmonology placed order for VQ scan. Bilateral lower extremity Dopplers as stated above are negative. BMP showing mild hypocarbia with bicarb of 20.1 otherwise normal findings. -Vital signs reviewed and stable. Blood pressure 121/70, heart rate 70, respiratory rate 16, temp 97.4 F, and SpO2 of 96% on room air. -Bilateral lower extremity Dopplers completed negative for DVT. CODE STATUS: Full code DVT prophylaxis: Lovenox Anticipated discharge date: Pending clinical course Anticipated discharge place: Pending clinical course Patient was seen independently by Nurse Pracitioner. This document was prepared using Fridge dictation software. Please allow for errors in speech lang path, while rare they do occur. I reviewed the documentation as provided by the JOSE above, who is the original author of this note. I agree with the documented assessment and plan, with the following changes: none Objective - Vital Signs Vital signs: Vital Signs Temp 97.4 F L 05/11/24 07:00 Pulse 70 05/11/24 07:00 Resp 16 05/11/24 07:00 BP 121/70 05/11/24 07:00 Pulse Ox 96 05/11/24 07:00 FiO2 Intake & Output 05/10/24 05/11/24 05/11/24 18:59 06:59 18:59 Weight 88.904 kg 88.904 kg Other: # Voids 1 - Labs CBC & Chem 7: 05/11/24 06:24 05/11/24 06:24 Labs: Abnormal Lab Results - Last 24 Hours (Table) 05/10/24 05/10/24 05/10/24 Range/Units 17:17 17:17 17:17 WBC 11.2 H (3.8-10.6) k/uL RBC 3.83 L (4.30-5.90) m/uL Hgb 12.1 L (13.0-17.5) gm/dL Hct 37.6 L (39.0-53.0) % RDW 16.2 H (11.5-15.5) % Neutrophils # 8.4 H (1.3-7.7) k/uL Lymphocytes # (0.90-5.00) X 10*3/uL Monocytes # (0.20-1.00) X 10*3/uL Eosinophils # (0.04-0.35) X 10*3/uL APTT 21.1 L (22.0-30.0) sec D-Dimer (<0.60) mg/L FEU Chloride 109 H (98-107) mmol/L Carbon Dioxide (21.6-31.8) mmol/L Glucose (70-110) mg/dL Calcium (8.7-10.3) mg/dL AST (14-35) U/L Total Protein (6.2-8.2) g/dL Globulin (1.6-3.3) g/dL Urine Protein (Negative) Urine Mucus (None) /hpf 05/10/24 05/11/24 05/11/24 Range/Units 17:17 06:24 06:24 WBC (3.8-10.6) k/uL RBC 3.41 L (4.30-5.90) m/uL Hgb 10.7 L (13.0-17.5) gm/dL Hct 32.6 L (39.0-53.0) % RDW 15.7 H (11.5-15.5) % Neutrophils # (1.3-7.7) k/uL Lymphocytes # 0.52 L (0.90-5.00) X 10*3/uL Monocytes # 0.03 L (0.20-1.00) X 10*3/uL Eosinophils # 0 L (0.04-0.35) X 10*3/uL APTT (22.0-30.0) sec D-Dimer (<0.60) mg/L FEU Chloride (98-107) mmol/L Carbon Dioxide 20.1 L (21.6-31.8) mmol/L Glucose 181 H (70-110) mg/dL Calcium 8.6 L (8.7-10.3) mg/dL AST 13 L (14-35) U/L Total Protein 5.4 L (6.2-8.2) g/dL Globulin 1.5 L (1.6-3.3) g/dL Urine Protein 1+ H (Negative) Urine Mucus Few H (None) /hpf 05/11/24 Range/Units 06:24 WBC (3.8-10.6) k/uL RBC (4.30-5.90) m/uL Hgb (13.0-17.5) gm/dL Hct (39.0-53.0) % RDW (11.5-15.5) % Neutrophils # (1.3-7.7) k/uL Lymphocytes # (0.90-5.00) X 10*3/uL Monocytes # (0.20-1.00) X 10*3/uL Eosinophils # (0.04-0.35) X 10*3/uL APTT (22.0-30.0) sec D-Dimer 0.75 H (<0.60) mg/L FEU Chloride (98-107) mmol/L Carbon Dioxide (21.6-31.8) mmol/L Glucose (70-110) mg/dL Calcium (8.7-10.3) mg/dL AST (14-35) U/L Total Protein (6.2-8.2) g/dL Globulin (1.6-3.3) g/dL Urine Protein (Negative) Urine Mucus (None) /hpf
[2024-05-11] MEDS: SYMBICORT 160-4.5 MCG INHALER INHALATION SCH (19:25)
[2024-05-11] MEDS: EZETIMIBE 10 MG TAB PO SCH (20:12)
[2024-05-11] MEDS: ATORVASTATIN 80 MG TAB PO SCH (20:13)
[2024-05-11] MEDS: LATANOPROST 0.005% OPHTH DROPS 2.5 ML BTL BOTH EYES SCH (20:13)
[2024-05-11] MEDS: SACUBITRIL/VALSARTAN 49 MG-51 MG TABLET PO SCH (20:14)
[2024-05-11] MEDS: FUROSEMIDE 10 MG/ML 2 ML VIAL IV SCH (20:14)
[2024-05-12] MEDS: methylPREDNISolone 4 MG TAB TAPER PO SCH (08:44)
[2024-05-12 10:01] LABS: ALT 14 U/L (10-49); AST 14 U/L (14-35); Albumin 4.1 g/dL (3.8-4.9); Albumin/Globulin Ratio 2.56 Ratio (1.60-3.17); Alkaline Phosphatase 47 U/L (41-126); Blood Urea Nitrogen 16.8 mg/dL (9.0-27.0); Calcium 9.1 mg/dL (8.7-10.3); Chloride 108 mmol/L (96-109); Globulin 1.6 g/dL (1.6-3.3); Glucose 171 mg/dL (70-110); Magnesium 2.2 mg/dL (1.5-2.4); Potassium 4.4 mmol/L (3.5-5.5); Sodium 140 mmol/L (135-145); Total Bilirubin 0.4 mg/dL (0.3-1.2); Total Protein 5.7 g/dL (6.2-8.2)
[2024-05-12 10:10] LABS: HGB 10.8 g/dL (13.0-17.0); MCHC 32.7 g/dL (32.0-37.0); MCV 97.9 FL (80.0-97.0); Mean Platelet Volume 11.1 FL (9.5-12.2); NRBC Per 100 WBC 0 X 10*3/uL (0.00-0.01); Platelet Count 202 X 10*3/uL (140-440); RBC 3.37 X 10*6/uL (4.40-5.60); RDW 15.9 % (11.5-14.5); WBC 10.16 X 10*3/uL (4.50-10.00)
--- NOTE | 2024-05-12 11:42 | P.CRDCN ---
History of Present Illness Consult date: 05/12/24 History of present illness: A cardiology consult was requested regarding low EF of 25 to 30%. Patient states that he receives most of his care through [facility] and would prefer to forego cardiac evaluation while in the hospital and would prefer to do this as an outpatient. He also thinks that his EF has been low in the past. Upon review of previous echocardiogram from 2021, patient did have an EF of 30 to 35% at that time. We will cancel the cardiology consult per request of the patient. Past Medical History Past Medical History: Atrial Fibrillation, Coronary Artery Disease (CAD), Cancer, Heart Failure, Deep Vein Thrombosis (DVT), GERD/Reflux, Hearing Disorder / Deafness, Hyperlipidemia, Hypertension, Myocardial Infarction (VT), Osteoarthritis (OA), Sleep Apnea/CPAP/BIPAP Additional Past Medical History / Comment(s): Had a fall last week. Hard of hearing. Right lung - stable pulmonary nodule. Hx internal bleed, went unresponsive and was transfused. No device use for Sleep Apnea. Hx DVT right leg. Hx diverticular disease/polyps. Hx prostate cancer with biopsies/then cancer was gone. Hx 2 lumbar vertebral fractures, chronic back pain, "left arm - muscle loose, not having it repaired." Last Myocardial Infarction Date:: 1989 History of Any Multi-Drug Resistant Organisms: None Reported Past Surgical History: AICD, Appendectomy, Coronary Bypass/CABG, Heart Catheterization, Heart Catheterization With Stent, Joint Replacement, Orthopedic Surgery Additional Past Surgical History / Comment(s): 2005 AICD ([employer]) with 2 battery replacements/last battery change was in 2019, PCI/multiple stents, "40+ stents, can't have anymore stents placed", coronary angioplasties, prostate biopsies, colonoscopy, bilateral total knee replacements, bilateral cataracts removed. Past Anesthesia/Blood Transfusion Reactions: No Reported Reaction Additional Past Anesthesia/Blood Transfusion Reaction / Comment(s): Pt has had blood transfusions without reaction. "Contrast Dye will kill me". Date of Last Stent Placement:: 2019 Type of Cardiac Device: AICD Device Placement Date:: 2005 Smoking Status: Former smoker - Past Family History Father Family Medical History: Myocardial Infarction (VT) Additional Family Medical History / Comment(s): Father of a VT at the age of 63yrs. Mother Additional Family Medical History / Comment(s): Mother in bed. She was a heavy smoker. Brother(s) Family Medical History: Cancer Additional Family Medical History / Comment(s): One brother had colon cancer, another brother had colon and pancreatic cancer. Sister(s) Family Medical History: Cancer Additional Family Medical History / Comment(s): Colon cancer. Medications and Allergies Home Medications Medication Instructions Recorded Confirmed Type Clopidogrel [Plavix] 75 mg PO DAILY@1200 11/08/16 05/11/24 History Pantoprazole [Protonix] 40 mg PO BID 11/08/16 05/11/24 History Rosuvastatin Calcium [Crestor] 40 mg PO HS 11/08/16 05/11/24 History Metoprolol Tartrate 25 mg PO BID 07/05/18 05/11/24 History Carboxymethylcellulose Sodium 1 drop BOTH EYES QID PRN 01/19/21 05/10/24 History [Refresh Tears] Cholecalciferol [Vitamin D3 (25 50 mcg PO DAILY 01/19/21 05/10/24 History Mcg = 1000 Iu)] Ferrous Sulfate [Iron (65 MG 325 mg PO DAILY 01/19/21 05/10/24 History Elemental)] calcitrioL 0.25 mcg PO MOWEFR 01/19/21 05/11/24 History Gabapentin 300 mg PO TID 10/20/21 05/11/24 History Ezetimibe [Zetia] 10 mg PO DAILY 05/10/24 05/11/24 History Ranolazine [Ranexa] 500 mg PO BID 05/10/24 05/11/24 History Bimatoprost [Lumigan 0.01% Ophth 1 drop BOTH EYES HS 05/11/24 05/11/24 History Soln] PARoxetine HCL [Paxil] 20 mg PO DAILY 05/11/24 05/11/24 History Sacubitril/Valsartan [Entresto 49 0.5 tab PO BID 05/11/24 05/11/24 History mg-51 mg Tablet] Allergies Allergy/AdvReac Type Severity Reaction Status Date / Time Iodinated Contrast Media Allergy Anaphylaxis Verified 05/10/24 21:11 iodine Allergy Anaphylaxis Verified 05/10/24 21:11 lisinopril Allergy Unknown Verified 05/10/24 21:11 Penicillins Allergy Rash/Hives Verified 05/10/24 21:11 All Over hydromorphone [From Dilaudid] AdvReac Nightmares Verified 05/10/24 21:11 Physical Exam Vitals: Vital Signs Temp Pulse Pulse Pulse Resp BP Pulse Ox 05/12/24 09:01 96 05/12/24 08:45 88 05/12/24 08:00 88 85 16 05/12/24 07:00 97.7 F 85 16 127/69 97 05/12/24 00:33 97.7 F 75 17 133/69 93 L 05/11/24 19:52 97.5 F L 85 16 110/49 93 L 05/11/24 19:37 84 05/11/24 19:28 80 05/11/24 15:47 80 05/11/24 15:37 78 05/11/24 14:00 88 79 16 05/11/24 13:33 98 F 79 16 120/52 93 L 05/11/24 11:42 84 05/11/24 11:32 84 Intake and Output 05/11/24 05/12/24 05/12/24 22:59 06:59 14:59 Intake Total 358 Balance 358 Intake: Oral 358 Other: # Voids 1 2 Results 05/12/24 03:31 05/12/24 03:31 Cardiac Enzymes 05/12/24 Range/Units 03:31 AST 14 (14-35) U/L CBC 05/12/24 Range/Units 03:31 WBC 10.16 H (4.50-10.00) X 10*3/uL RBC 3.37 L (4.40-5.60) X 10*6/uL Hgb 10.8 L (13.0-17.0) g/dL Hct 33.0 L (39.6-50.0) % Plt Count 202 (140-440) X 10*3/uL Comprehensive Metabolic Panel 05/12/24 Range/Units 03:31 Sodium 140 (135-145) mmol/L Potassium 4.4 (3.5-5.5) mmol/L Chloride 108 (96-109) mmol/L Carbon Dioxide 21.0 L (21.6-31.8) mmol/L BUN 16.8 (9.0-27.0) mg/dL Creatinine 1.0 (0.6-1.5) mg/dL Glucose 171 H (70-110) mg/dL Calcium 9.1 (8.7-10.3) mg/dL AST 14 (14-35) U/L ALT 14 (10-49) U/L Alkaline Phosphatase 47 (41-126) U/L Total Protein 5.7 L (6.2-8.2) g/dL Albumin 4.1 (3.8-4.9) g/dL Current Medications Generic Name Dose Route Start Last Admin Trade Name Freq PRN Reason Stop Dose Admin Acetaminophen 650 mg 05/10/24 20:04 Acetaminophen Tab 325 Mg Tab PO Q6HR PRN Mild Pain or Fever > 100.5 Albuterol/Ipratropium 3 ml 05/11/24 08:00 05/12/24 08:45 Ipratropium-Albuterol 3 Ml Neb INHALATION 3 ml RT-QID MARLENE Administration Albuterol/Ipratropium 3 ml 05/10/24 20:22 Ipratropium-Albuterol 3 Ml Neb INHALATION RT-Q2H PRN Shortness Of Breath Or Wheezing Artificial Tears 1 drops 05/11/24 08:52 Artificial Tears-Hypromellose Drops 15 Ml Btl BOTH EYES QID PRN Dry Eye(s) Atorvastatin Calcium 80 mg 05/11/24 21:00 05/11/24 20:13 Atorvastatin 80 Mg Tab PO 80 mg HS MARLENE Administration Benzonatate 100 mg 05/10/24 20:06 Benzonatate 100 Mg Cap PO TID PRN Cough Budesonide/Formoterol Fumarate 2 puff 05/11/24 20:00 05/12/24 08:45 Symbicort 160-4.5 Mcg Inhaler INHALATION 2 puff RT-BID MARLENE Administration Calcitriol 0.25 mcg 05/11/24 09:00 05/12/24 08:17 Calcitriol 0.25 Mcg Cap PO 0.25 mcg DAILY MARLENE Administration Clopidogrel Bisulfate 75 mg 05/11/24 09:00 05/12/24 08:17 Clopidogrel 75 Mg Tab PO 75 mg DAILY MARLENE Administration Ezetimibe 10 mg 05/11/24 21:00 05/11/24 20:12 Ezetimibe 10 Mg Tab PO 10 mg HS MARLENE Administration Enoxaparin Sodium 40 mg 05/11/24 09:00 05/12/24 08:17 Enoxaparin 40 Mg/0.4 Ml Syringe SQ 40 mg DAILY MARLENE Administration Ferrous Sulfate 325 mg 05/11/24 09:00 05/12/24 08:18 Ferrous Sulfate 325 Mg Tab PO 325 mg DAILY MARLENE Administration Furosemide 20 mg 05/11/24 21:00 05/12/24 08:17 Furosemide 10 Mg/Ml 2 Ml Vial IV 20 mg Q12HR MARLENE Administration Gabapentin 300 mg 05/11/24 09:00 05/12/24 08:17 Gabapentin 300 Mg Cap PO 300 mg TID MARLENE Administration Latanoprost 1 drops 05/11/24 21:00 05/11/24 20:13 Latanoprost 0.005% Ophth Drops 2.5 Ml Btl BOTH EYES 1 drops HS MARLENE Administration Methylprednisolone 24 mg 05/12/24 09:00 05/12/24 08:44 Methylprednisolone 4 Mg Tab Taper PO 05/18/24 08:59 24 mg DAILY MARLENE Administration Taper Metoprolol Tartrate 25 mg 05/11/24 09:00 05/12/24 08:18 Metoprolol Tartrate 25 Mg Tab PO 25 mg BID MARLENE Administration Naloxone HCl 0.2 mg 05/10/24 20:04 Naloxone 0.4 Mg/Ml 1 Ml Vial IVP Q2M PRN Opioid Reversal Ondansetron HCl 4 mg 05/10/24 20:04 Ondansetron 4 Mg/2 Ml Vial IVP Q8HR PRN Nausea And Vomiting Pantoprazole Sodium 40 mg 05/11/24 07:30 05/12/24 06:10 Pantoprazole 40 Mg Tablet PO 40 mg DAILY@0730 MARLENE Administration Paroxetine HCl 20 mg 05/11/24 09:00 05/12/24 08:18 Paroxetine 20 Mg Tab PO 20 mg DAILY MARLENE Administration Ranolazine 500 mg 05/11/24 09:00 05/12/24 08:18 Ranolazine 500 Mg Tab.Er.12h PO 500 mg BID MARLENE Administration Sacubitril/Valsartan 0.5 each 05/11/24 21:00 05/12/24 08:18 Sacubitril/Valsartan 49 Mg-51 Mg Tablet PO 0.5 each BID MARLENE Administration Intake and Output 05/11/24 05/12/24 05/12/24 22:59 06:59 14:59 Intake Total 358 Balance 358 Intake: Oral 358 Other: # Voids 1 2 05/12/24 03:31 05/12/24 03:31
--- NOTE | 2024-05-12 11:59 | P.PN ---
Subjective Progress Note Date: 05/12/24 This is an 83-year-old male patient who follows at the [facility] for his primary care needs. He has a history of coronary artery disease VS bypass grafting and multiple angioplasties, obstructive sleep apnea, former smoker, congestive heart failure, atrial fibrillation previously on Eliquis, hypertension, hyperlipidemia, pacemaker placement. He presented here to the emergency room with ongoing issues with shortness of breath cough and congestion. He was on steroids on 2 separate occasions without much improvement. Chest x-ray reveals no acute pulmonary process. White count 6.1. Hemoglobin 10.7. Platelets 205. D-dimer 0.75. Sodium 139. Potassium 4.6. Bicarb 20. BUN 20. Creatinine 1.2. Glucose 181. Troponins were negative x 3. proBNP 2079. Viral screen negative. He is seen today in consultation on the regular medical floor. He is currently sitting up in bed. Awake and alert in no acute distress. Maintaining O2 saturations in the 90s on room air. He has been afebrile. Hemodynamically stable. He has some complaints of some left-sided facial tingling and numbness. The patient is seen today May 12, 2024 in follow-up on the regular medical floor. He is currently sitting up in bed. Awake and alert in no acute distress. Maintaining good O2 saturations in the upper 90s on room air. He has been afebrile. Hemodynamically stable. Breathing easier today compared to yesterday. Echocardiogram revealed an impaired left ventricular systolic function with ejection fraction 25 to 30%. Ventilation/perfusion scan revealed low probability for PE. Dopplers of the lower extremity revealed no evidence of DVT. White count 10.1. Hemoglobin 10.8. Platelets 202. Sodium 140. Potassium 4.4. Bicarb 21. BUN 17. Creatinine 1.0. Glucose 171. Procalcitonin negative at 0.03. He remains on Symbicort, DuoNeb inhalations, Solu-Medrol. Continued on IV diuretics. Lovenox for DVT prophylaxis. Objective - Vital Signs Vital signs: Vital Signs Temp 97.7 F 05/12/24 07:00 Pulse 96 05/12/24 09:01 Resp 16 05/12/24 08:00 BP 127/69 05/12/24 07:00 Pulse Ox 97 05/12/24 07:00 FiO2 Intake & Output 05/11/24 05/12/24 05/12/24 18:59 06:59 18:59 Intake Total 236 358 Balance 236 358 Intake: Oral 236 358 Other: # Voids 3 2 - Exam GENERAL EXAM: Alert, pleasant 83-year-old male, on room air, sitting up in bed, comfortable in no apparent distress. HEAD: Normocephalic. EYES: Normal reaction of pupils, equal size. NOSE: Clear with pink turbinates. THROAT: No erythema or exudates. NECK: No masses, no JVD. CHEST: No chest wall deformity. LUNGS: Equal air entry with crackles in the posterior bases. CVS: S1 and S2 normal with no audible murmur, regular rhythm. ABDOMEN: No hepatosplenomegaly, normal bowel sounds, no guarding or rigidity. SPINE: No scoliosis or deformity SKIN: No rashes CENTRAL NERVOUS SYSTEM: No focal deficits, tone is normal in all 4 extremities. EXTREMITIES: There is no peripheral edema. No clubbing, no cyanosis. Peripheral pulses are intact. - Labs CBC & Chem 7: 05/12/24 03:31 05/12/24 03:31 Labs: Abnormal Lab Results - Last 24 Hours (Table) 05/12/24 05/12/24 Range/Units 03:31 03:31 WBC 10.16 H (4.50-10.00) X 10*3/uL RBC 3.37 L (4.40-5.60) X 10*6/uL Hgb 10.8 L (13.0-17.0) g/dL Hct 33.0 L (39.6-50.0) % MCV 97.9 H (80.0-97.0) FL RDW 15.9 H (11.5-14.5) % Carbon Dioxide 21.0 L (21.6-31.8) mmol/L Glucose 171 H (70-110) mg/dL Total Protein 5.7 L (6.2-8.2) g/dL Assessment and Plan Assessment: Shortness of breath, cough and congestion, failed outpatient treatment at acute exacerbation of chronic obstructive pulmonary disease. Pulmonary embolism/DVT ruled out. Procalcitonin negative Acute exacerbation of chronic systolic congestive heart failure in a patient found to have an ejection fraction of 25 to 30% Left-sided facial tingling and numbness of unclear etiology Former smoker History of coronary artery disease with previous bypass surgery History of atrial fibrillation History of AICD placement Hypertension Hyperlipidemia Plan: The patient was seen and evaluated Imaging, labs and medications reviewed Continue DuoNeb inhalations, Symbicort Transition from Solu-Medrol to a Medrol Dosepak Remains on IV diuretics Home once cleared by cardiology I have personally seen and examined the patient, performed the documentation and the assessment and plan as written. Number of minutes spent on the visit: 10.
--- NOTE | 2024-05-12 15:54 | P.PN ---
Subjective Progress Note Date: 05/12/24 Hospital course: Patient is a very pleasant 83-year-old male with a past medical history of CAD status post CABG, chronic systolic heart failure status post AICD placement, hypertension, hyperlipidemia, and COPD. He presented to the emergency department with a chief complaint shortness of breath, cough, and congestion. He reports he has been treated outpatient by senior front end developer for COPD exacerbation and underwent 2 cycles of oral steroids with no improvement. Patient reports worsening shortness of breath at rest and with exertion. Upon arrival to our facility, patient underwent evaluation in the emergency department. Vital signs upon arrival show blood pressure 106/66, heart rate 84, respiratory rate 24, temp 98.4 F, and SpO2 of 97% on room air. EKG completed showing an atrial paced rhythm at 75 bpm with a left bundle branch block. Chest x-ray completed showing chronic changes but negative for acute cardiopulmonary process. Labs completed and reviewed. CBC showing mild leukocytosis with WBC count of 11.2 and stable normocytic anemia with hemoglobin of 12.1. Coagulation profile showing a low PTT of 21.1. BMP showing hyperchloremia with chloride of 109 otherwise normal findings. Magnesium 2.1. Troponin 0.019. proBNP was 2080. Influenza A, influenza B, RSV, and COVID PCR negative. Patient admitted under our services with consultation to cardiology and pulmonology. Physical exam: Patient seen and fully evaluated at bedside this morning. He does report improvement of shortness of breath since starting on IV Lasix. He reports continued weakness and cough but denies having any chest pain or discomfort or any other complaints at this time. Patient was initially requesting discharge home but upon getting up had episode of dizziness/lightheadedness with near syncope. Orthostatic vitals to be completed. Vital signs reviewed and stable. General: Nontoxic, no distress and appears stated age. Derm: Skin warm and dry, normal coloration for ethnicity. Head: Atraumatic, normocephalic and symmetric. Eyes: EOM's intact, no lid lag, and anicteric sclera Mouth: no lip lesions, mucus membranes moist Cardiovascular: regular rate and rhythm with normal S1S2, systolic murmur, po sitive posterior tibial pulses bilaterally, and cap refill < 2 seconds. Lungs: Respirations even, regular, and unlabored on room air. Lungs CTA bilaterally, no rhonchi, no rales, no wheezing, and no accessory muscle usage. Abdominal: soft, nontender to palpation, no guarding, no appreciable organ omegaly Ext: ROM intact. No gross muscle atrophy, 1+ pitting bilateral lower extremity edema, no contractures Neuro: Speech clear, face symmetrical and CN II-XII grossly intact with no noted focal neuro deficits Psych: Alert and oriented to person, place, time, and situation. Appropriate and pleasant affect. Assessment and Plan of Care: COPD with acute exacerbation, failed outpatient treatment Mild systolic heart failure exacerbation Near syncope, dizziness/lightheadedness upon standing Bilateral lower extremity edema CAD status post CABG Chronic systolic heart failure Status post permanent pacemaker placement Hypertension Hyperlipidemia -Pulmonary following, discussed with senior front end developer and pulmonary BUILDING SPECIALIST clearing patient home on Medrol Dosepak once cleared by cardiology. -Bilateral lower extremity Dopplers completed negative for DVT. -Echocardiogram revealing an impaired EF of 25 to 30% with a dilated LV cavity and severely reduced LV systolic function, right ventricular dilation with reduced systolic function, severe biatrial dilation, moderate mitral and aortic regurgitation. -Patient started on Lasix 20 mg IV every 12 hours. -Order placed for orthostatic vitals. -Oxygenation to be administered and titrated as needed to maintain SPO2 equal to or greater than 92% -Telemetry monitoring. -Monitor pulse-oximetry -Duonebs scheduled 4 times daily and as needed for SOB and/or wheezing. Continue Symbicort 160-4.5 mcg inhaler 2 puffs twice daily. -Incentive Spirometry -Steroids: Transition from IV Solu-Medrol to Medrol Dosepak. -Continue daily medication regimen with atorvastatin 80 mg nightly, Plavix 75 mg daily, Zetia 10 mg nightly, metoprolol 25 mg twice daily, Ranexa 500 mg twice daily, and Entresto 0.5 mg twice daily. Data and imaging reviewed: -Echocardiogram revealing an impaired EF of 25 to 30% with a dilated LV cavity and severely reduced LV systolic function, right ventricular dilation with reduced systolic function, severe biatrial dilation, moderate mitral and aortic regurgitation. -Morning labs completed and reviewed. CBC showing stable normocytic anemia with hemoglobin of 10.8. BMP showing mild hypocarbia with bicarb of 21 otherwise normal findings. Blood glucose slightly elevated at 171. Magnesium 2.2.. -Vital signs reviewed and stable. Blood pressure 117/69, heart rate 85, respiratory rate 16, temp 97.7 F, SpO2 of 97% on room air. CODE STATUS: Full code DVT prophylaxis: Lovenox Anticipated discharge date: Pending clinical course Anticipated discharge place: Pending clinical course Patient was seen independently by Nurse Pracitioner. This document was prepared using [employer] dictation software. Please allow for errors in gas turbine powerplant mechanic helper, while rare they do occur. I reviewed the documentation as provided by the JOSE above, who is the original author of this note. I agree with the documented assessment and plan, with the following changes: none Objective - Vital Signs Vital signs: Vital Signs Temp 97.7 F 05/12/24 07:00 Pulse 96 05/12/24 09:01 Resp 16 05/12/24 07:00 BP 127/69 05/12/24 07:00 Pulse Ox 97 05/12/24 07:00 FiO2 Intake & Output 05/11/24 05/12/24 05/12/24 18:59 06:59 18:59 Intake Total 236 Balance 236 Intake: Oral 236 Other: # Voids 3 2 - Labs CBC & Chem 7: 05/12/24 03:31 05/12/24 03:31
[2024-05-13 07:27] VITALS: BP 122/64; PULSE 72; RESP 16; TEMP 97.4
--- NOTE | 2024-05-13 11:56 | P.PN ---
Subjective Progress Note Date: 05/13/24 Principal diagnosis: Shortness of breath, multifactorial related to underlying COPD and acute exacerbation of chronic systolic congestive heart failure This is an 83-year-old male patient who follows at the [facility] for his primary care needs. He has a history of coronary artery disease VS bypass grafting and multiple angioplasties, obstructive sleep apnea, former smoker, congestive heart failure, atrial fibrillation previously on Eliquis, hypertension, hyperlipidemia, pacemaker placement. He presented here to the emergency room with ongoing issues with shortness of breath cough and congestion. He was on steroids on 2 separate occasions without much improvement. Chest x-ray reveals no acute pulmonary process. White count 6.1. Hemoglobin 10.7. Platelets 205. D-dimer 0.75. Sodium 139. Potassium 4.6. Bicarb 20. BUN 20. Creatinine 1.2. Glucose 181. Troponins were negative x 3. proBNP 2079. Viral screen negative. He is seen today in consultation on the regular medical floor. He is currently sitting up in bed. Awake and alert in no acute distress. Maintaining O2 saturations in the 90s on room air. He has been afebrile. Hemodynamically stable. He has some complaints of some left-sided facial tingling and numbness. The patient is seen today May 12, 2024 in follow-up on the regular medical floor. He is currently sitting up in bed. Awake and alert in no acute distress. Maintaining good O2 saturations in the upper 90s on room air. He has been afebrile. Hemodynamically stable. Breathing easier today compared to yesterday. Echocardiogram revealed an impaired left ventricular systolic function with ejection fraction 25 to 30%. Ventilation/perfusion scan revealed low probability for PE. Dopplers of the lower extremity revealed no evidence of DVT. White count 10.1. Hemoglobin 10.8. Platelets 202. Sodium 140. Potassium 4.4. Bicarb 21. BUN 17. Creatinine 1.0. Glucose 171. Procalcitonin negative at 0.03. He remains on Symbicort, DuoNeb inhalations, Solu-Medrol. Continued on IV diuretics. Lovenox for DVT prophylaxis. Patient was evaluated today on 05/13/2024, patient is doing great, relatively asymptomatic, he has intermittent cough, apparently cardiology came to see him yesterday, and the patient declined their consultation mostly because he is already following up with a land surveying survey worker on outpatient basis. Patient is now aware that he does have LV dysfunction and abnormal echocardiogram, he is convinced that his heart is a major issue contributing to his shortness of breath, and he would like to be discharged home and follow-up with his land surveying survey worker on outpatient basis. Objective - Vital Signs Vital signs: Vital Signs Temp 97.4 F L 05/13/24 07:00 Pulse 72 05/13/24 09:14 Resp 16 05/13/24 08:00 BP 122/64 05/13/24 07:00 Pulse Ox 95 05/13/24 07:00 FiO2 Intake & Output 05/12/24 05/13/24 05/13/24 18:59 06:59 18:59 Intake Total 834 Balance 834 Intake: Oral 834 Other: # Voids 2 1 - Exam GENERAL EXAM: Alert, pleasant 83-year-old male, on room air, sitting up in bed, comfortable in no apparent distress. O2 saturation 95% on room air HEAD: Normocephalic. EYES: Normal reaction of pupils, equal size. NOSE: Clear with pink turbinates. THROAT: No erythema or exudates. NECK: No masses, no JVD. CHEST: No chest wall deformity. LUNGS: Crackles and wheezing on forced expiratory maneuver only CVS: S1 and S2 normal with no audible murmur, regular rhythm. ABDOMEN: No hepatosplenomegaly, normal bowel sounds, no guarding or rigidity. SKIN: No rashes CENTRAL NERVOUS SYSTEM: No focal deficits, tone is normal in all 4 extremities. EXTREMITIES: There is no peripheral edema. No clubbing, no cyanosis. Peripheral pulses are intact. - Labs CBC & Chem 7: 05/12/24 03:31 05/12/24 03:31 Assessment and Plan Assessment: Impression: Shortness of breath, cough and congestion, failed outpatient treatment at acute exacerbation of chronic obstructive pulmonary disease. Pulmonary embolism/DVT ruled out. Procalcitonin negative Acute exacerbation of chronic systolic congestive heart failure in a patient found to have an ejection fraction of 25 to 30% Left-sided facial tingling and numbness of unclear etiology Former smoker History of coronary artery disease with previous bypass surgery History of atrial fibrillation History of AICD placement Hypertension Hyperlipidemia Recommendation: Continue present bronchodilators Continue Medrol Dosepak Continue diuretics on outpatient basis Will clear the patient for discharge and he is to follow-up with his land surveying survey worker patient declined cardiac evaluation and consultation in our institution. Will see on outpatient basis if necessary. Time with Patient: Less than 30
--- NOTE | 2024-05-13 16:40 | P.DS ---
Providers Date of admission: 05/10/24 20:07 Expected date of discharge: 05/13/24 Attending physician: Taylor Ko MD Consults: 05/10/24 20:04 Consult Physician Routine Consulting Provider: Teresa Guadalupe Consult Reason/Comments: copdy Do you want consulting provider notified?: Yes 05/11/24 17:32 Consult Physician Routine Consulting Provider: Cyrus Espinal Consult Reason/Comments: HFrEF 25-30% Do you want consulting provider notified?: Yes Primary care physician: [facility] Hospital Course: Discharge Diagnosis: COPD with acute exacerbation, failed outpatient treatment. Mild systolic heart failure exacerbation. Near syncope, dizziness/lightheadedness upon standing. Bilateral lower extremity edema. CAD status post CABG. Chronic systolic heart failure Nonischemic cardiomyopathy status post AICD placement Hypertension Hyperlipidemia Hospital course: Patient is a very pleasant 83-year-old male with a past medical history of CAD status post CABG, chronic systolic heart failure status post AICD placement, hypertension, hyperlipidemia, and COPD. He presented to the emergency department with a chief complaint shortness of breath, cough, and congestion. He reports he has been treated outpatient by die storage clerk for COPD exacerbation and underwent 2 cycles of oral steroids with no improvement. Patient reports worsening shortness of breath at rest and with exertion. Upon arrival to our facility, patient underwent evaluation in the emergency department. Vital signs upon arrival show blood pressure 106/66, heart rate 84, respiratory rate 24, temp 98.4 F, and SpO2 of 97% on room air. EKG completed showing an atrial paced rhythm at 75 bpm with a left bundle branch block. Chest x-ray completed showing chronic changes but negative for acute cardiopulmonary process. Labs completed and reviewed. CBC showing mild leukocytosis with WBC count of 11.2 and stable normocytic anemia with hemoglobin of 12.1. Coagulation profile showing a low PTT of 21.1. BMP showing hyperchloremia with chloride of 109 otherwise normal findings. Magnesium 2.1. Troponin 0.019. proBNP was 2080. Influenza A, influenza B, RSV, and COVID PCR negative. Patient admitted under our services with consultation to cardiology and pulmonology. Patient received IV steroids and scheduled [id number] nebulizer treatments and underwent successful IV diuresis. Echocardiogram was completed which revealed severely impaired EF of 25 to 30% with dilated LV cavity and severely reduced LV systolic function with right ventricular dilation and reduced systolic function, severe biatrial dilation, and moderate mitral and aortic regurgitation. Previous echocardiogram showing EF of 30 to 35%, discussed with patient findings of worsening EF and abnormal echocardiogram. Cardiology was consulted, however patient refused to allow car dealer to assess stating he only wants to see his car dealer and will follow-up outpatient. Patient's shortness of breath significantly improved. He has been medically optimized. Hvac R Instructor recommending discharge home on Medrol Dosepak. Patient also discharged home on furosemide 40 mg daily and recommended to follow-up outpatient with his PCP in 1 to 2 days and with car dealer in 1 week. Patient advised to discuss worsening EF and echocardiogram findings with his car dealer. Patient verbalized understanding. Physical exam: Vital signs reviewed and stable. General: Nontoxic, no distress and appears stated age. Derm: Skin warm and dry, normal coloration for ethnicity. Head: Atraumatic, normocephalic and symmetric. Eyes: EOM's intact, no lid lag, and anicteric sclera Mouth: no lip lesions, mucus membranes moist Cardiovascular: regular rate and rhythm with normal S1S2, systolic murmur, positive posterior tibial pulses bilaterally, and cap refill < 2 seconds. Lungs: Respirations even, regular, and unlabored on room air. Lungs CTA bilaterally, no rhonchi, no rales, no wheezing, and no accessory muscle usage. Abdominal: soft, nontender to palpation, no guarding, no appreciable organomegaly Ext: ROM intact. No gross muscle atrophy, 1+ pitting bilateral lower extremity edema, no contractures Neuro: Speech clear, face symmetrical and CN II-XII grossly intact with no noted focal neuro deficits Psych: Alert and oriented to person, place, time, and situation. Appropriate and pleasant affect. A total of 37 minutes of time were spent preparing this complex discharge summary. Pt was discharged on 05/13/2024 at 9:15 AM. Patient was seen independently by Nurse Practitioner. This document was prepared using [employer] dictation software. Please allow for errors in waterworks employee while rare they do occur. I reviewed the documentation as provided by the JOSE above, who is the original author of this note. I agree with the documented assessment and plan, with the following changes: none Patient Condition at Discharge: Stable Plan - Discharge Summary Discharge Rx Participant: No New Discharge Prescriptions: New methylPREDNISolone Dose Pack [Medrol Dose Pack] 4 mg PO DIRECTED #21 tab Furosemide [Lasix] 40 mg PO DAILY 30 Days #30 tablet Continue Clopidogrel [Plavix] 75 mg PO DAILY@1200 Pantoprazole [Protonix] 40 mg PO BID Rosuvastatin Calcium [Crestor] 40 mg PO HS Metoprolol Tartrate 25 mg PO BID Ferrous Sulfate [Iron (65 MG Elemental)] 325 mg PO DAILY Cholecalciferol [Vitamin D3 (25 Mcg = 1000 Iu)] 50 mcg PO DAILY Ranolazine [Ranexa] 500 mg PO BID PARoxetine HCL [Paxil] 20 mg PO DAILY Sacubitril/Valsartan [Entresto 49 mg-51 mg Tablet] 0.5 tab PO BID Carboxymethylcellulose Sodium [Refresh Tears] 1 drop BOTH EYES QID PRN PRN Reason: Dry Eye(S) calcitrioL 0.25 mcg PO MOWEFR Gabapentin 300 mg PO TID Ezetimibe [Zetia] 10 mg PO DAILY Bimatoprost [Lumigan 0.01% Ophth Soln] 1 drop BOTH EYES HS Discharge Medication List Clopidogrel [Plavix] 75 mg PO DAILY@1200 11/08/16 [History] Pantoprazole [Protonix] 40 mg PO BID 11/08/16 [History] Rosuvastatin Calcium [Crestor] 40 mg PO HS 11/08/16 [History] Metoprolol Tartrate 25 mg PO BID 07/05/18 [History] Carboxymethylcellulose Sodium [Refresh Tears] 1 drop BOTH EYES QID PRN 01/19/21 [History] Cholecalciferol [Vitamin D3 (25 Mcg = 1000 Iu)] 50 mcg PO DAILY 01/19/21 [History] Ferrous Sulfate [Iron (65 MG Elemental)] 325 mg PO DAILY 01/19/21 [History] calcitrioL 0.25 mcg PO MOWEFR 01/19/21 [History] Gabapentin 300 mg PO TID 10/20/21 [History] Ezetimibe [Zetia] 10 mg PO DAILY 05/10/24 [History] Ranolazine [Ranexa] 500 mg PO BID 05/10/24 [History] Bimatoprost [Lumigan 0.01% Ophth Soln] 1 drop BOTH EYES HS 05/11/24 [History] PARoxetine HCL [Paxil] 20 mg PO DAILY 05/11/24 [History] Sacubitril/Valsartan [Entresto 49 mg-51 mg Tablet] 0.5 tab PO BID 05/11/24 [History] Furosemide [Lasix] 40 mg PO DAILY 30 Days #30 tablet 05/13/24 [Rx] methylPREDNISolone Dose Pack [Medrol Dose Pack] 4 mg PO DIRECTED #21 tab 05/13/24 [Rx] Follow up Appointment(s)/Referral(s): [facility],Clinic [Primary Care Provider] - 1-2 days Patient Instructions/Handouts: Heart Failure (DC), COPD (Chronic Obstructive Pulmonary Disease) (DC) Activity/Diet/Wound Care/Special Instructions: Activity: As tolerated. Take breaks as needed. Diet: Heart healthy and carb consistent diet. Avoid salts, or foods with hidden salts such as canned or boxed foods and frozen dinners. Extra salt makes your heart work harder and traps the fluid in your body for longer. Special Instructions: Take all of your medications as directed and remember to keep all of your doctor's appointments and follow-up as needed. As you declined being seen by our car dealer it is highly recommended you follow-up with your personal car dealer after discharge. Thank you for allowing us to participate in your care, it was truly a pleasure having you for our patient!!! Discharge Disposition: HOME SELF-CARE
== END 2024-05-13 10:33 | disposition home or self-care (01) ==
LOC: EC 16:41 → 6NMEDSUR 20:07
PROVIDERS: ADMIT Internal Medicine; ATTEND Internal Medicine
DX: J44.1 Chronic obstructive pulmonary disease with (acute) exacerbation (principal); J96.01 Acute respiratory failure with hypoxia; D72.829 Elevated white blood cell count, unspecified; R42 Dizziness and giddiness; R55 Syncope and collapse; I48.20 Chronic atrial fibrillation, unspecified; I25.10 Atherosclerotic heart disease of native coronary artery without angina pectoris; I11.0 Hypertensive heart disease with heart failure; I50.23 Acute on chronic systolic (congestive) heart failure; R20.2 Paresthesia of skin; R20.0 Anesthesia of skin; I42.8 Other cardiomyopathies; D64.9 Anemia, unspecified; K21.9 Gastro-esophageal reflux disease without esophagitis; E78.5 Hyperlipidemia, unspecified; G47.33 Obstructive sleep apnea (adult) (pediatric); F41.9 Anxiety disorder, unspecified; I25.2 Old myocardial infarction; Z11.52 Encounter for screening for COVID-19; Z85.46 Personal history of malignant neoplasm of prostate; Z86.718 Personal history of other venous thrombosis and embolism; Z87.891 Personal history of nicotine dependence; Z95.5 Presence of coronary angioplasty implant and graft; Z95.810 Presence of automatic (implantable) cardiac defibrillator; Z79.01 Long term (current) use of anticoagulants; Z79.02 Long term (current) use of antithrombotics/antiplatelets; Z79.899 Other long term (current) drug therapy; Z88.0 Allergy status to penicillin
CPT/HCPCS: 96376 ×3; 96372 ×3; 96375 ×2; 96374 ×2; 99291; 36415; 94640 ×8; 93005; 93306; 85379; 83880; 80053 ×3; 83735 ×3; 84100; 84484 ×2; 85025 ×2; 85027; 85610; 85730; 81001; 84145; 87636; 71045; 93970; 78582; G0378 ×4; A9540; A9567; J1100; J1940; J1650 ×3; Q9957; J1885; J7509 ×2; J2919 ×3

== ENCOUNTER 2024-08-30 12:59 | Observation (INO) | payer OTHER, MEDICARE ==
--- NOTE | 2024-08-30 13:25 | ED ---
General Adult HPI - General Chief complaint: Dizziness Stated complaint: Lightheadedness Time Seen by Provider: 08/30/24 13:12 Source: patient, family, RN notes reviewed Mode of arrival: ambulatory Limitations: no limitations - History of Present Illness Initial comments: Patient is a pleasant 83-year-old male presents emergency department with concern for lightheadedness. Onset of symptoms was several days ago. Patient did have loose dark stools for several days that resolved with pills from a nurse that he received and has not had any bowel movement in the last 2 days. No nausea or vomiting. Mild abdominal discomfort. Patient gets extremely lightheaded with standing up. Patient feels near syncopal with standing up. Patient is on blood thinners with history of A-fib. Patient is unclear which blood thinner he is on. Patient states he has a very mild headache rated 1/10. Patient has been fatigued and at times forgetful - Related Data Home Medications Medication Instructions Recorded Confirmed Clopidogrel [Plavix] 75 mg PO DAILY 11/08/16 08/30/24 Pantoprazole [Protonix] 40 mg PO BID 11/08/16 08/30/24 Rosuvastatin Calcium [Crestor] 40 mg PO DAILY 11/08/16 08/30/24 Carboxymethylcellulose Sodium 1 drop BOTH EYES QID PRN 01/19/21 08/30/24 [Refresh Tears] Cholecalciferol [Vitamin D3 (25 50 mcg PO DAILY 01/19/21 08/30/24 Mcg = 1000 Iu)] Ferrous Sulfate [Iron (65 MG 325 mg PO DAILY 01/19/21 08/30/24 Elemental)] Gabapentin 300 mg PO TID 10/20/21 08/30/24 Ezetimibe [Zetia] 10 mg PO DAILY 05/10/24 08/30/24 Ranolazine [Ranexa] 500 mg PO BID 05/10/24 08/30/24 Bimatoprost [Lumigan 0.01% Ophth 1 drop BOTH EYES HS 05/11/24 08/30/24 Soln] PARoxetine HCL [Paxil] 20 mg PO DAILY 05/11/24 08/30/24 Apixaban [Eliquis] 2.5 mg PO BID 08/30/24 08/30/24 Furosemide [Lasix] 80 mg PO DAILY 08/30/24 08/30/24 Potassium Chloride ER [K-Dur 20] 20 meq PO DAILY 08/30/24 08/30/24 Sacubitril/Valsartan [Entresto 24 1 tab PO BID 08/30/24 08/30/24 mg-26 mg Tablet] carvediloL [Coreg] 6.25 mg PO BID-W/MEALS 08/30/24 08/30/24 Allergies Allergy/AdvReac Type Severity Reaction Status Date / Time Iodinated Contrast Media Allergy Anaphylaxis Verified 08/30/24 14:46 iodine Allergy Anaphylaxis Verified 08/30/24 14:46 lisinopril Allergy Unknown Verified 08/30/24 14:46 Penicillins Allergy Rash/Hives Verified 08/30/24 14:46 All Over hydromorphone [From Dilaudid] AdvReac Nightmares Verified 08/30/24 14:46 Review of Systems ROS Statement: Those systems with pertinent positive or pertinent negative responses have been documented in the HPI. ROS Other: All systems not noted in ROS Statement are negative. Constitutional: Denies: fever Eyes: Denies: eye pain ENT: Denies: ear pain Respiratory: Denies: cough, dyspnea Cardiovascular: Denies: chest pain Endocrine: Reports: fatigue Gastrointestinal: Reports: as per HPI, melena Genitourinary: Denies: dysuria Musculoskeletal: Denies: back pain Neurological: Reports: as per HPI Past Medical History Past Medical History: Atrial Fibrillation, Coronary Artery Disease (CAD), Cancer, Heart Failure, Deep Vein Thrombosis (DVT), GERD/Reflux, Hearing Disorder / Deafness, Hyperlipidemia, Hypertension, Myocardial Infarction (NH), Osteoarthritis (OA), Sleep Apnea/CPAP/BIPAP Additional Past Medical History / Comment(s): Had a fall last week. Hard of hearing. Right lung - stable pulmonary nodule. Hx internal bleed, went unresponsive and was transfused. No device use for Sleep Apnea. Hx DVT right leg. Hx diverticular disease/polyps. Hx prostate cancer with biopsies/then cancer was gone. Hx 2 lumbar vertebral fractures, chronic back pain, "left arm - muscle loose, not having it repaired." Last Myocardial Infarction Date:: 1989 History of Any Multi-Drug Resistant Organisms: None Reported Past Surgical History: AICD, Appendectomy, Coronary Bypass/CABG, Heart Catheterization, Heart Catheterization With Stent, Joint Replacement, Orthopedic Surgery Additional Past Surgical History / Comment(s): 2006 AICD ([employer]) with 2 battery replacements/last battery change was in 2019, PCI/multiple stents, "40+ stents, can't have anymore stents placed", coronary angioplasties, prostate biopsies, colonoscopy, bilateral total knee replacements, bilateral cataracts removed. Past Anesthesia/Blood Transfusion Reactions: No Reported Reaction Additional Past Anesthesia/Blood Transfusion Reaction / Comment(s): Pt has had blood transfusions without reaction. "Contrast Dye will kill me". Date of Last Stent Placement:: 2019 Type of Cardiac Device: AICD Device Placement Date:: 2005 Past Psychological History: Anxiety Smoking Status: Former smoker Past Alcohol Use History: None Reported Past Drug Use History: None Reported - Past Family History Father Family Medical History: Myocardial Infarction (NH) Additional Family Medical History / Comment(s): Father of a NH at the age of 63yrs. Mother Additional Family Medical History / Comment(s): Mother in bed. She was a heavy smoker. Brother(s) Family Medical History: Cancer Additional Family Medical History / Comment(s): One brother had colon cancer, another brother had colon and pancreatic cancer. Sister(s) Family Medical History: Cancer Additional Family Medical History / Comment(s): Colon cancer. General Exam Limitations: no limitations General appearance: alert, in no apparent distress Head exam: Present: atraumatic Eye exam: Present: normal appearance Neck exam: Present: normal inspection Respiratory exam: Present: normal lung sounds bilaterally Cardiovascular Exam: Present: regular rate, normal rhythm GI/Abdominal exam: Present: soft. Absent: distended, tenderness, pulsatile mass Rectal exam: Present: normal inspection (No stool available to send for occult) Extremities exam: Present: normal inspection Neurological exam: Present: alert Psychiatric exam: Present: normal affect, normal mood Skin exam: Present: normal color Course Vital Signs 08/30/24 08/30/24 08/30/24 13:01 13:34 13:35 Temperature 97.4 F L Pulse Rate 54 L Pulse Rate [ 68 74 Buyer Broker ] Respiratory 18 18 18 Rate Blood Pressure 105/61 Blood Pressure 84/56 [Left Arm Sitting] Blood Pressure [Left Arm Standing] Blood Pressure 113/57 [Left Arm Supine] O2 Sat by Pulse 93 L 98 98 Oximetry 08/30/24 08/30/24 08/30/24 13:37 13:39 14:25 Temperature Pulse Rate 73 69 Pulse Rate [ 71 Buyer Broker ] Respiratory 18 18 18 Rate Blood Pressure 114/68 93/67 Blood Pressure [Left Arm Sitting] Blood Pressure 60/36 [Left Arm Standing] Blood Pressure [Left Arm Supine] O2 Sat by Pulse 95 97 95 Oximetry EKG Findings - EKG Results: EKG: interpreted by NOHEMYD (Paced rhythm with a rate of 75. First-degree AV block with a RI of 236. Superior axis. Wide QRS complex.), normal ST/T Medical Decision Making - Medical Decision Making Was pt. sent in by a medical professional or institution (, PA, [employer], urgent care, hospital, or [place] health care facility...) When possible be specific @ -No Did you speak to anyone other than the patient for history (EMS, parent, family, police, friend...)? What history was obtained from this source @ -No Did you review nursing and triage notes (agree or disagree)? Why? @ -I reviewed and agree with nursing and triage notes Were old charts reviewed (outside hosp., previous admission, EMS record, old EK G, old radiological studies, urgent care reports/EKG's, [place] health care facility records)? Report findings @ -No old charts were reviewed Differential Diagnosis (chest pain, altered mental status, abdominal pain women, abdominal pain men, vaginal bleeding, weakness, fever, dyspnea, syncope, headache, dizziness, GI bleed, back pain, seizure, CVA, palpatations, mental health, musculoskeletal)? @ -Differential Dizziness: Benign paroxysmal positional Vertigo, Meniere's disease, otitis media, acoustic neuroma, vertebrobasilar insufficiency, cerebellar stroke, encephalitis, hypovolemic, arrhythmia, coronary artery syndrome, anemia, this is not meant to be an all-inclusive list EKG interpreted by me (3pts min.). @ -As above X-rays interpreted by me (1pt min.). @ -Chest x-ray shows no acute process CT interpreted by me (1pt min.). @ -None done U/S interpreted by me (1pt. min.). @ -None done What testing was considered but not performed or refused? (CT, X-rays, U/S, labs)? Why? @ -Consider Hemoccult however no stool was available for sample What meds were considered but not given or refused? Why? @ -None Did you discuss the management of the patient with other professionals (professionals i.e. DrAbby, PA, [employer], lab, RT, psych nurse, high school social studies tutor, steam plant records clerk, teacher, railroad police officer, case finisher)? Give summary @ -Case was discussed with Dr. Gonzalez who will admit covering Dr. Sen Was smoking cessation discussed for >3mins.? @ -No Was critical care preformed (if so, how long)? @ -No Were there social determinants of health that impacted care today? How? (Homelessness, low income, unemployed, alcoholism, drug addiction, transportation, low edu. Level, literacy, decrease access to med. care, assisted, rehab)? @ -No Was there de-escalation of care discussed even if they declined (Discuss DNR or withdrawal of care, Hospice)? DNR status @ -No What co-morbidities impacted this encounter? (DM, HTN, Smoking, COPD, CAD, Cancer, CVA, ARF, Chemo, Hep., AIDS, mental health diagnosis, sleep apnea, morbid obesity)? @ -None Was patient admitted / discharged? Hospital course, mention meds given and route, prescriptions, significant lab abnormalities, going to OR and other pertinent info. @ -Patient presents with diarrhea and loose dark stools that have resolved. Unable to obtain sample for occult blood. Hemoglobin is stable. Patient has extreme orthostatic hypotension. Patient will be admitted for IV fluids and further evaluation. Admission orders written. Undiagnosed new problem with uncertain prognosis? @ -No Drug Therapy requiring intensive monitoring for toxicity (Heparin, Nitro, Insulin, Cardizem)? @ -No Were any procedures done? @ -No Diagnosis/symptom? @ -Orthostatic hypotension Acute, or Chronic, or Acute on Chronic? @ -Acute Uncomplicated (without systemic symptoms) or Complicated (systemic symptoms)? @ -Default Side effects of treatment? @ -No Exacerbation, Progression, or Severe Exacerbation? @ -No Poses a threat to life or bodily function? How? (Chest pain, USA, NH, pneumonia, PE, COPD, DKA, ARF, appy, cholecystitis, CVA, Diverticulitis, Homicidal, Suicidal, threat to staff... and all critical care pts) @ -No - Lab Data Result diagrams: 08/30/24 13:30 08/30/24 13:30 Lab Results 01/08/30/24 08/30/24 Range/Units 13:30 13:30 13:30 WBC 8.8 (3.8-10.6) k/uL RBC 3.81 L (4.30-5.90) m/uL Hgb 12.2 L (13.0-17.5) gm/dL Hct 36.6 L (39.0-53.0) % MCV 96.0 (80.0-100.0) fL MCH 32.1 (25.0-35.0) pg MCHC 33.5 (31.0-37.0) g/dL RDW 16.4 H (11.5-15.5) % Plt Count 243 (150-450) k/uL MPV 7.4 Neutrophils % 72 % Lymphocytes % 15 % Monocytes % 9 % Eosinophils % 3 % Basophils % 1 % Neutrophils # 6.3 (1.3-7.7) k/uL Lymphocytes # 1.3 (1.0-4.8) k/uL Monocytes # 0.8 (0-1.0) k/uL Eosinophils # 0.2 (0-0.7) k/uL Basophils # 0.1 (0-0.2) k/uL Anisocytosis Slight APTT 23.3 (22.0-30.0) sec Sodium 136 L (137-145) mmol/L Potassium 3.9 (3.5-5.1) mmol/L Chloride 104 (98-107) mmol/L Carbon Dioxide 23 (22-30) mmol/L Anion Gap 9 mmol/L BUN 21 H (9-20) mg/dL Creatinine 1.77 H (0.66-1.25) mg/dL Est GFR (CKD-EPI)AfAm 41 (>60 ml/min/1.73 sqM) Est GFR (CKD-EPI)NonAf 35 (>60 ml/min/1.73 sqM) Glucose 102 H (74-99) mg/dL Calcium 10.1 (8.4-10.2) mg/dL Magnesium 1.5 L (1.6-2.3) mg/dL Total Bilirubin 1.0 (0.2-1.3) mg/dL AST 20 (17-59) U/L ALT 14 (4-49) U/L Alkaline Phosphatase 51 (38-126) U/L Troponin I (0.000-0.034) ng/mL Total Protein 6.4 (6.3-8.2) g/dL Albumin 4.4 (3.5-5.0) g/dL 08/30/24 Range/Units 13:30 WBC (3.8-10.6) k/uL RBC (4.30-5.90) m/uL Hgb (13.0-17.5) gm/dL Hct (39.0-53.0) % MCV (80.0-100.0) fL MCH (25.0-35.0) pg MCHC (31.0-37.0) g/dL RDW (11.5-15.5) % Plt Count (150-450) k/uL MPV Neutrophils % % Lymphocytes % % Monocytes % % Eosinophils % % Basophils % % Neutrophils # (1.3-7.7) k/uL Lymphocytes # (1.0-4.8) k/uL Monocytes # (0-1.0) k/uL Eosinophils # (0-0.7) k/uL Basophils # (0-0.2) k/uL Anisocytosis APTT (22.0-30.0) sec Sodium (137-145) mmol/L Potassium (3.5-5.1) mmol/L Chloride (98-107) mmol/L Carbon Dioxide (22-30) mmol/L Anion Gap mmol/L BUN (9-20) mg/dL Creatinine (0.66-1.25) mg/dL Est GFR (CKD-EPI)AfAm (>60 ml/min/1.73 sqM) Est GFR (CKD-EPI)NonAf (>60 ml/min/1.73 sqM) Glucose (74-99) mg/dL Calcium (8.4-10.2) mg/dL Magnesium (1.6-2.3) mg/dL Total Bilirubin (0.2-1.3) mg/dL AST (17-59) U/L ALT (4-49) U/L Alkaline Phosphatase (38-126) U/L Troponin I 0.017 (0.000-0.034) ng/mL Total Protein (6.3-8.2) g/dL Albumin (3.5-5.0) g/dL Disposition Clinical Impression: Orthostatic hypotension Disposition: ADMITTED IP TO THIS HOSP Is patient prescribed a controlled substance at d/c from ED?: No Referrals: Macarena Gallegos, PAC [REFERRING] - 1-2 days Time of Disposition: 15:09
[2024-08-30] MEDS: SODIUM CHLORIDE 0.9% 1,000 ML IV STA ×3 (13:42→17:32)
[2024-08-30] MEDS: PANTOPRAZOLE 40 MG/10 ML VIAL IVP STA (13:42)
[2024-08-30 13:43] LABS: Anisocytosis Slight; Basophils # (A) 0.1 k/uL (0-0.2); Basophils % (A) 1 %; Eosinophils # (A) 0.2 k/uL (0-0.7); Eosinophils % (A) 3 %; HCT 36.6 % (39.0-53.0); HGB 12.2 gm/dL (13.0-17.5); Lymphocytes # (A) 1.3 k/uL (1.0-4.8); Lymphocytes % (A) 15 %; MCH 32.1 pg (25.0-35.0); MCHC 33.5 g/dL (31.0-37.0); Mean Platelet Volume 7.4; Monocytes # (A) 0.8 k/uL (0-1.0); Monocytes % (A) 9 %; Neutrophils # (A) 6.3 k/uL (1.3-7.7); Neutrophils % (A) 72 %; Platelet Count 243 k/uL (150-450); RBC 3.81 m/uL (4.30-5.90); RDW 16.4 % (11.5-15.5); WBC 8.8 k/uL (3.8-10.6)
[2024-08-30 13:56] LABS: ALT 14 U/L (4-49); AST 20 U/L (17-59); African American GFR (CKD) 41 (>60 ml/min/1.73 sqM); Albumin 4.4 g/dL (3.5-5.0); Alkaline Phosphatase 51 U/L (38-126); Anion Gap 9 mmol/L; Blood Urea Nitrogen 21 mg/dL (9-20); Calcium 10.1 mg/dL (8.4-10.2); Carbon Dioxide 23 mmol/L (22-30); Chloride 104 mmol/L (98-107); Glucose 102 mg/dL (74-99); Magnesium 1.5 mg/dL (1.6-2.3); Non-African American GFR(CKD) 35 (>60 ml/min/1.73 sqM); Potassium 3.9 mmol/L (3.5-5.1); Sodium 136 mmol/L (137-145); Total Protein 6.4 g/dL (6.3-8.2)
--- NOTE | 2024-08-30 14:06 | XR ---
EXAMINATION TYPE: XR chest 2V DATE OF EXAM: 08/30/2024 2:00 PM COMPARISON: Chest x-ray May 10, 2024 CLINICAL INDICATION: Male, 83 years old with history of weak, TECHNIQUE: Frontal and lateral views of the chest are obtained. FINDINGS: Overlying sternal wires and mediastinal clips are redemonstrated. Persistent cardiomegaly with multi lead pacemaker/defibrillator. Suspect underlying emphysematous change. There is no new foc al air space opacity, pleural effusion, or pneumothorax seen. The osseous structures are intact. IMPRESSION: Chronic changes and cardiomegaly without acute pulmonary process. [facility], , 08/30/2024 2:03 PM
[2024-08-30] MEDS ORDERED: ONDANSETRON 4 MG/2 ML VIAL IVP PRN (15:09)
[2024-08-30] MEDS ORDERED: NALOXONE 0.4 MG/ML 1 ML VIAL IV PRN (15:09)
[2024-08-30] MEDS ORDERED: ACETAMINOPHEN TAB 325 MG TAB PO PRN (15:09)
[2024-08-30] MEDS ORDERED: ARTIFICIAL TEARS-HYPROMELLOSE DROPS 15 ML BTL BOTH EYES PRN (15:10)
[2024-08-30] MEDS: GABAPENTIN 300 MG CAP PO SCH (16:04)
[2024-08-30 16:15] LABS: INR 1.1 (<1.2); Prothrombin Time 12.2 sec (10.0-12.5)
--- NOTE | 2024-08-30 16:33 | US ---
EXAMINATION TYPE: US kidneys/renal and bladder DATE OF EXAM: 08/30/2024 COMPARISON: CT abdomen and pelvis 2019 CLINICAL INDICATION: Male, 83 years old with history of Jonathan; jonathan TECHNIQUE: Grayscale imaging of the bilateral kidneys and urinary bladder: FINDINGS: EXAM MEASUREMENTS: Right Kidney: 10.6 x 6.2 x 6.3 cm Left Kidney: 10.3 x 5.2 x 5.3 cm Right Kidney: echogenic focus seen mid pole measuring 0.5 x 0.5 x 0.7cm Left Kidney: No hydronephrosis or masses seen Bladder: wnl Bilateral Jets seen: Yes There is no evidence for hydronephrosis at this point in time. Probable nonobstructing small 5 mm rig ht renal calculus. No masses are identified. The urinary bladder is anechoic. IMPRESSION: No hydronephrosis seen bilaterally. [facility], , 08/30/2024 4:31 PM
[2024-08-30] MEDS: SODIUM CHLORIDE 0.9% 1,000 ML IV SCH (16:37)
[2024-08-30] MEDS: MAGNESIUM SULFATE-D5W PMX 1 GM in DEXTROSE/WATER 1 100ML.BAG IVPB SCH (17:31)
--- NOTE | 2024-08-30 17:43 | P.HPIM ---
History of Present Illness H&P Date: 08/30/24 Patient is a 83-year-old male with a PMH of atrial fibrillation (on Eliquis), CAD (s/p CABG, with multiple stents), prostate cancer (in remission), HFrEF (25 to 30% with pacemaker), history of DVT, GERD, hyperlipidemia, hypertension, history of CT presenting with acute lightheadedness. Patient reports of having diarrhea 6 days ago. He describes it as black/watery consistency. He states he took something 2 days ago for his diarrhea, and has not been able to defecate since. Patient denies abdominal pain. Patient endorses feeling lightheaded to the point where he feels like he is about to pass out. When asked he states that he feels dizzy when he goes from a laying position to a seated position. Patient also has complaint of headache but denies light sensitivity. Patient denies fever chills, vomiting, urinary symptoms. Patient admits to nausea. EKG independently interpreted displays atrial pacemaker, vent rate 75 bpm, QTc 440 MS CXR independently interpreted displaying cardiomegaly, no evidence of acute pulmonary process Renal ultrasound shows no evidence of hydronephrosis Troponin 0.017, Hgb 12.2, BUN 21, creatinine 1.77, magnesium 1.5. T 97.4 F, NC 54, BP 105/61, O2 sat 93% on room air ED documentation reviewed. Review of systems: Pertinent positives and negatives as discussed in HPI, a complete review of systems was performed and all other systems are negative. Social history: Tobacco: Former smoker of 30 years, quit 34 years ago Alcohol: None reported Recreational drugs: None reported Physical examination: Vital signs reviewed General: non toxic, no distress, appears at stated age, normal weight Derm: no unusual rashes/lesions, warm Head: atraumatic, normocephalic, symmetric Eyes: EOMI, anicteric sclera, pupils equal round reactive to light ENT: Nose and ears atraumatic Mouth: no lip lesion, mucus membranes moist Cardiovascular: S1S2 reg, no murmur, positive dorsalis pedis pulse bilateral, no edema Lungs: CTA bilateral, no rhonchi, no rales, no accessory muscle use Abdominal: soft, mild left lower quadrant tenderness on deep palpation, no guarding Ext: muscle strength 5 out of 5 in all 4 extremities grossly, no gross muscle atrophy Neuro: CN II-XI grossly intact, no gross focal neuro deficits Psych: Alert, oriented to person, place, and time Assessment/Plan: Patient is a 83-year-old male with a PMH of atrial fibrillation, CAD (s/p CABG, with multiple stents), prostate cancer (in remission), heart failure, DVT, GERD, hyperlipidemia, hypertension, history of CT presenting with acute dizziness. #. Hypovolemia/dehydration #Acute kidney injury #Hypovolemic hyponatremia #Orthostatic hypotension Orthostatic positive, recheck tomorrow morning, hold carvedilol, Lasix, Entresto Renal ultrasound showing no signs of hydronephrosis Zofran 4 mg IVP every 8 hours as needed TSH ordered Maintain fluids at 75 cc/HR #. Chest pain, ACS less likely EKG independently interpreted displays atrial pacemaker, vent rate 75 bpm, QTc 440 MS Troponin 0.017, continue to trend #. Hypomagnesia Magnesium sulfate 2 g IVPB #. Normocytic anemia Hgb 12.2, MCV 96 Continue with ferrous sulfate 325 mg PO daily Follow-up CBC #Abdominal pain -Recent diarrhea -Nontoxic Chronic: Coronary artery disease: Plavix 75 mg PO daily Atrial fibrillation: Resume Eliquis 2.5 twice daily History of DVT: Eliquis as above Hyperlipidemia: Rosuvastatin 40 mg PO daily, Zetia 10 mg PO daily HFrEF (EF 25-35%): Currently holding Coreg, Entresto, Lasix CAD: Continue with Plavix 75 mg daily GERD: Protonix 40 mg PO twice daily Pain management: Continue gabapentin, Ranexa F: NS at 75 cc/HR E: Replete electrolytes as needed N: Regular diet A: Independently ambulatory, fall precaution DVT prophylaxis: Eliquis 2.5 PO BID The patient is admitted with an anticipated left than 2 midnight stay for evaluation of acute dizziness. CODE STATUS: Full code Discussed with: Patient Anticipated discharge place: Home Shyam Orantes MD PGY-1 IM Dictation was produced using [employer] dictation software. please excuse any grammatical, word or spelling errors. I have seen and evaluated the patient today. Discussed with the resident and agree with the residents finding and plan as documented in the resident's note. Changes highlighted in blue font. Past Medical History Past Medical History: Atrial Fibrillation, Coronary Artery Disease (CAD), Cancer , Heart Failure, Deep Vein Thrombosis (DVT), GERD/Reflux, Hearing Disorder / Deafness, Hyperlipidemia, Hypertension, Myocardial Infarction (CT), Osteoarthritis (OA), Sleep Apnea/CPAP/BIPAP Additional Past Medical History / Comment(s): Had a fall last week. Hard of hearing. Right lung - stable pulmonary nodule. Hx internal bleed, went unresponsive and was transfused. No device use for Sleep Apnea. Hx DVT right leg. Hx diverticular disease/polyps. Hx prostate cancer with biopsies/then cancer was gone. Hx 2 lumbar vertebral fractures, chronic back pain, "left arm - muscle loose, not having it repaired." Last Myocardial Infarction Date:: 1989 History of Any Multi-Drug Resistant Organisms: None Reported Past Surgical History: AICD, Appendectomy, Coronary Bypass/CABG, Heart Catheterization, Heart Catheterization With Stent, Joint Replacement, Orthopedic Surgery Additional Past Surgical History / Comment(s): 2005 AICD ([employer]) with 2 battery replacements/last battery change was in 2019, PCI/multiple stents, "40+ stents, can't have anymore stents placed", coronary angioplasties, prostate biopsies, colonoscopy, bilateral total knee replacements, bilateral cataracts removed. Past Anesthesia/Blood Transfusion Reactions: No Reported Reaction Additional Past Anesthesia/Blood Transfusion Reaction / Comment(s): Pt has had blood transfusions without reaction. "Contrast Dye will kill me". Date of Last Stent Placement:: 2019 Type of Cardiac Device: AICD Device Placement Date:: 2005 Past Psychological History: Anxiety Smoking Status: Former smoker Past Alcohol Use History: None Reported Past Drug Use History: None Reported - Past Family History Father Family Medical History: Myocardial Infarction (CT) Additional Family Medical History / Comment(s): Father of a CT at the age of 63yrs. Mother Additional Family Medical History / Comment(s): Mother in bed. She was a heavy smoker. Brother(s) Family Medical History: Cancer Additional Family Medical History / Comment(s): One brother had colon cancer, another brother had colon and pancreatic cancer. Sister(s) Family Medical History: Cancer Additional Family Medical History / Comment(s): Colon cancer. Medications and Allergies Home Medications Medication Instructions Recorded Confirmed Type Clopidogrel [Plavix] 75 mg PO DAILY 11/08/16 08/30/24 History Pantoprazole [Protonix] 40 mg PO BID 11/08/16 08/30/24 History Rosuvastatin Calcium [Crestor] 40 mg PO DAILY 11/08/16 08/30/24 History Carboxymethylcellulose Sodium 1 drop BOTH EYES QID PRN 01/19/21 08/30/24 History [Refresh Tears] Cholecalciferol [Vitamin D3 (25 50 mcg PO DAILY 01/19/21 08/30/24 History Mcg = 1000 Iu)] Ferrous Sulfate [Iron (65 MG 325 mg PO DAILY 01/19/21 08/30/24 History Elemental)] Gabapentin 300 mg PO TID 10/20/21 08/30/24 History Ezetimibe [Zetia] 10 mg PO DAILY 05/10/24 08/30/24 History Ranolazine [Ranexa] 500 mg PO BID 05/10/24 08/30/24 History Bimatoprost [Lumigan 0.01% Ophth 1 drop BOTH EYES HS 05/11/24 08/30/24 History Soln] PARoxetine HCL [Paxil] 20 mg PO DAILY 05/11/24 08/30/24 History Apixaban [Eliquis] 2.5 mg PO BID 08/30/24 08/30/24 History Furosemide [Lasix] 80 mg PO DAILY 08/30/24 08/30/24 History Potassium Chloride ER [K-Dur 20] 20 meq PO DAILY 08/30/24 08/30/24 History Sacubitril/Valsartan [Entresto 24 1 tab PO BID 08/30/24 08/30/24 History mg-26 mg Tablet] carvediloL [Coreg] 6.25 mg PO BID-W/MEALS 08/30/24 08/30/24 History Allergies Allergy/AdvReac Type Severity Reaction Status Date / Time Iodinated Contrast Media Allergy Anaphylaxis Verified 08/30/24 14:46 iodine Allergy Anaphylaxis Verified 08/30/24 14:46 lisinopril Allergy Unknown Verified 08/30/24 14:46 Penicillins Allergy Rash/Hives Verified 08/30/24 14:46 All Over hydromorphone [From Dilaudid] AdvReac Nightmares Verified 08/30/24 14:46 Physical Exam Vitals: Vital Signs Temp Pulse Pulse Resp BP BP BP 08/30/24 14:25 69 18 93/67 08/30/24 13:39 73 18 114/68 08/30/24 13:37 71 18 60/36 08/30/24 13:35 74 18 84/56 08/30/24 13:34 68 18 08/30/24 13:01 97.4 F L 54 L 18 105/61 BP Pulse Ox 08/30/24 14:25 95 08/30/24 13:39 97 08/30/24 13:37 95 08/30/24 13:35 98 08/30/24 13:34 113/57 98 08/30/24 13:01 93 L Intake and Output 08/30/24 08/30/24 08/30/24 06:59 14:59 22:59 Other: Weight 86.183 kg Results CBC & Chem 7: 08/30/24 13:30 08/30/24 13:30 Labs: Abnormal Lab Results - Last 24 Hours (Table) 08/30/24 08/30/24 Range/Units 13:30 13:30 RBC 3.81 L (4.30-5.90) m/uL Hgb 12.2 L (13.0-17.5) gm/dL Hct 36.6 L (39.0-53.0) % RDW 16.4 H (11.5-15.5) % Sodium 136 L (137-145) mmol/L BUN 21 H (9-20) mg/dL Creatinine 1.77 H (0.66-1.25) mg/dL Glucose 102 H (74-99) mg/dL Magnesium 1.5 L (1.6-2.3) mg/dL
[2024-08-30] MEDS: PANTOPRAZOLE 40 MG TABLET PO SCH (17:59)
[2024-08-30] MEDS: APIXABAN 2.5 MG TABLET PO SCH (21:00)
[2024-08-30] MEDS: LATANOPROST 0.005% OPHTH DROPS 2.5 ML BTL BOTH EYES SCH (21:00)
[2024-08-30] MEDS: RANOLAZINE 500 MG TAB.ER.12H PO SCH (21:00)
[2024-08-31] MEDS: CLOPIDOGREL 75 MG TAB PO SCH (08:24)
[2024-08-31] MEDS: EZETIMIBE 10 MG TAB PO SCH (08:24)
[2024-08-31] MEDS: CHOLECALCIFEROL 25 MCG (1000 IU) TABLET PO SCH (08:24)
[2024-08-31] MEDS: ATORVASTATIN 80 MG TAB PO SCH (08:24)
[2024-08-31] MEDS: FERROUS SULFATE 325 MG TAB PO SCH (08:25)
[2024-08-31 08:28] LABS: ALT 10 U/L (10-49); AST 15 U/L (14-35); Albumin 3.8 g/dL (3.8-4.9); Albumin/Globulin Ratio 3.17 Ratio (1.60-3.17); Alkaline Phosphatase 44 U/L (41-126); BUN/Creat Ratio 13.85 Ratio (12.00-20.00); Calcium 8.6 mg/dL (8.7-10.3); Carbon Dioxide 20.9 mmol/L (21.6-31.8); Chloride 111 mmol/L (96-109); Globulin 1.2 g/dL (1.6-3.3); Glucose 98 mg/dL (70-110); Potassium 3.7 mmol/L (3.5-5.5); Sodium 144 mmol/L (135-145); Total Bilirubin 0.4 mg/dL (0.3-1.2)
[2024-08-31] MEDS: PARoxetine 20 MG TAB PO SCH (08:30)
[2024-08-31 08:33] LABS: Basophils # (A) 0.06 X 10*3/uL (0.00-0.10); Basophils % (A) 1.1 %; Eosinophils # (A) 0.26 X 10*3/uL (0.04-0.35); Eosinophils % (A) 4.9 %; HCT 30.9 % (39.6-50.0); HGB 10.1 g/dL (13.0-17.0); Lymphocytes # (A) 1.15 X 10*3/uL (0.90-5.00); Lymphocytes % (A) 21.5 %; MCH 31.5 pg (27.0-32.0); MCHC 32.7 g/dL (32.0-37.0); MCV 96.3 FL (80.0-97.0); Mean Platelet Volume 10.8 FL (9.5-12.2); Monocytes # (A) 0.78 X 10*3/uL (0.20-1.00); Monocytes % (A) 14.6 %; NRBC Per 100 WBC 0 X 10*3/uL (0.00-0.01); Neutrophils # (A) 3.08 X 10*3/uL (1.80-7.70); Neutrophils % (A) 57.7 %; Platelet Count 188 X 10*3/uL (140-440); RBC 3.21 X 10*6/uL (4.40-5.60); RDW 15.6 % (11.5-14.5); WBC 5.34 X 10*3/uL (4.50-10.00)
[2024-08-31] MEDS ORDERED: PANTOPRAZOLE 40 MG/10 ML VIAL IV SCH (09:00)
[2024-08-31] MEDS: polyethylene glycoL 3350 17 GM POWD.PACK PO STA (11:25)
[2024-08-31 14:50] VITALS: BMI 30.7
--- NOTE | 2024-08-31 16:15 | P.PN ---
Subjective Progress Note Date: 08/31/24 Hospital course: Patient is a 83-year-old male with a PMH of atrial fibrillation (on Eliquis), CAD (s/p CABG, with multiple stents), prostate cancer (in remission), HFrEF (25 to 30% with pacemaker), history of DVT, GERD, hyperlipidemia, hypertension, history of [place] presenting with acute lightheadedness. Patient reports of having diarrhea 6 days ago. He describes it as black/watery consistency. He states he took something 2 days ago for his diarrhea, and has not been able to defecate since. Patient denies abdominal pain. Patient endorses feeling lightheaded to the point where he feels like he is about to pass out. When asked he states that he feels dizzy when he goes from a laying position to a seated position. Patient also has complaint of headache but denies light sensitivity. Patient denies fever chills, vomiting, urinary symptoms. Patient admits to nausea. EKG independently interpreted displays atrial pacemaker, vent rate 75 bpm, QTc 440 MS CXR independently interpreted displaying cardiomegaly, no evidence of acute pulmonary process Renal ultrasound shows no evidence of hydronephrosis Troponin 0.017, Hgb 12.2, BUN 21, creatinine 1.77, magnesium 1.5. T 97.4 F, [place] 54, BP 105/61, O2 sat 93% on room air Subjective: Patient seen and examined at bedside. No acute events overnight. Spoke with patient at length regarding memory issues and how to manage it outpatient. Patient states he still has not had a bowel movement going on for days. Pertinent positives and negatives as discussed above, a complete review of systems was performed and all other systems are negative. Vitals: Signs Reviewed Physical Exam: General: nontoxic, no distress, appears at stated age Derm: warm, dry, intact Head: atraumatic, normocephalic, symmetric Eyes: EOMI, anicteric sclera Mouth: no lip lesion, mucus membranes moist Cardiovascular: S1 S2 reg, no murmur, rubs, or gallops Lungs: CTA bilateral, no rhonchi, no rales, no accessory muscle use Abdominal: soft, non-tender to palpataion, no appreciable organomegaly Extremities: no gross muscle atrophy, no edema, no contractures Neuro: Alert, Oriented, CNII-XII grossly intact, gait normal Psych: well appearing, appropriate affect Data Received Today: Pertinent Labs: TSH 0.57, Hgb 10.1, MCV 96.3, BUN 18, creatinine 1.8 Imaging: N/A Assessment/Plan: Patient is a 83-year-old male with a PMH of atrial fibrillation (on Eliquis), CAD (s/p CABG, with multiple stents), prostate cancer (in remission), HFrEF (EF 20-30%) DVT, GERD, hyperlipidemia, hypertension, history of [place] presenting with acute dizziness. #Hypovolemia/dehydration #Acute kidney injury, resolved #Hypovolemic hyponatremia #Orthostatic hypotension Orthostatic positive, recheck remains orthostatic positive, hold carvedilol, Lasix, Entresto Renal ultrasound showing no signs of hydronephrosis Zofran 4 mg IVP every 8 hours as needed TSH within normal limit 0.573 #Abdominal pain # Constipation -Recent diarrhea -Nontoxic 4 days with no bowel movement MiraLAX 17 g p.o. once Encouraged oral hydration #Chest pain, ACS less likely EKG independently interpreted displays atrial pacemaker, vent rate 75 bpm, QTc 440 MS Troponin 0.017 x 3 #Hypomagnesia, resolved Magnesium sulfate 2 g IVPB #Normocytic anemia, at baseline Hgb 12.2, MCV 96 Continue with ferrous sulfate 325 mg PO daily Follow-up CBC Before discharge be sure to give patient information to give to PCP in regards to outpatient memory loss management. Chronic: Coronary artery disease: Plavix 75 mg PO daily Atrial fibrillation: Resume Eliquis 2.5 twice daily History of DVT: Eliquis as above Hyperlipidemia: Rosuvastatin 40 mg PO daily, Zetia 10 mg PO daily HFrEF (EF 25-35%): Currently holding Coreg, Entresto, Lasix CAD: Continue with Plavix 75 mg daily GERD: Protonix 40 mg PO twice daily Pain management: Continue gabapentin, Ranexa F: N/A E: Replete electrolytes as needed N: Regular diet A: Independently ambulatory, fall precaution DVT prophylaxis: Eliquis 2.5 PO BID Code status: Full code Anticipated discharge place: Pending clinical course Anticipated discharge time: Pending clinical course Shyam Orantes MD PGY-1 IM Dictation was produced using [employer] dictation software. please excuse any grammatical, word or spelling errors. I saw and evaluated the patient during the davis and critical portions of this encounter, and discussed the case in detail with the resident author of this note, I agree with the Assessment and Plan, and my changes, if any, are highlighted in blue. Objective - Vital Signs Vital signs: Vital Signs Temp 97.4 F L 08/31/24 02:00 Pulse 69 08/31/24 02:00 Resp 17 08/31/24 02:00 BP 128/65 08/31/24 02:00 Pulse Ox 94 L 08/31/24 02:00 FiO2 Intake & Output 08/30/24 08/30/24 08/31/24 06:59 18:59 06:59 Output Total 200 Balance -200 Weight 86.183 kg 86.183 kg Output: Urine 200 Other: Voiding Method Urinal - Labs CBC & Chem 7: 08/31/24 05:29 08/31/24 05:29 Labs: Abnormal Lab Results - Last 24 Hours (Table) 08/30/24 08/30/24 Range/Units 13:30 13:30 RBC 3.81 L (4.30-5.90) m/uL Hgb 12.2 L (13.0-17.5) gm/dL Hct 36.6 L (39.0-53.0) % RDW 16.4 H (11.5-15.5) % Sodium 136 L (137-145) mmol/L BUN 21 H (9-20) mg/dL Creatinine 1.77 H (0.66-1.25) mg/dL Glucose 102 H (74-99) mg/dL Magnesium 1.5 L (1.6-2.3) mg/dL
[2024-08-31] MEDS: bisacodyL 10 MG SUPP RECTAL STA (17:35)
[2024-08-31] MEDS: SENNOSIDES-DOCUSATE SODIUM 1 EACH TAB PO SCH (19:12)
--- NOTE | 2024-08-31 22:17 | XR ---
EXAMINATION TYPE: XR abdomen 2V DATE OF EXAM: 08/31/2024 8:42 PM COMPARISON: None. CLINICAL INDICATION: Male, 83 years old with history of abdominal pain, TECHNIQUE: XR abdomen 2V view(s) obtained. FINDINGS: There is a normal bowel gas pattern. No free air is evident. No differential air-fluid levels are pre sent. Psoas margins are normal. No organomegaly is present. IMPRESSION: 1. Unremarkable Abdomen [facility], Workstation: [facility], 08/31/2024 10:15 PM
[2024-09-01 07:44] VITALS: TEMP 98.3
[2024-09-01 09:00] VITALS: RESP 18
[2024-09-01 10:38] VITALS: BP 114/62; PULSE 71
[2024-09-01 10:41] LABS: Anisocytosis Slight; HCT 33.2 % (39.0-53.0); HGB 10.9 gm/dL (13.0-17.5); MCHC 32.9 g/dL (31.0-37.0); MCV 97.4 fL (80.0-100.0); Macrocytosis Slight; Platelet Count 184 k/uL (150-450); RDW 16.7 % (11.5-15.5); WBC 5.7 k/uL (3.8-10.6)
[2024-09-01 10:57] LABS: African American GFR (CKD) 76 (>60 ml/min/1.73 sqM); Anion Gap 6 mmol/L; Blood Urea Nitrogen 16 mg/dL (9-20); Calcium 9.3 mg/dL (8.4-10.2); Carbon Dioxide 26 mmol/L (22-30); Chloride 108 mmol/L (98-107); Glucose 91 mg/dL (74-99); Non-African American GFR(CKD) 66 (>60 ml/min/1.73 sqM); Sodium 140 mmol/L (137-145)
--- NOTE | 2024-09-03 17:07 | P.DS ---
Providers Date of admission: 08/30/24 15:10 Expected date of discharge: 09/01/24 Attending physician: Uday Dailey Primary care physician: Baldomero Zuniga [facility] Course: #Hypovolemia/dehydration #Acute kidney injury, resolved #Hypovolemic hyponatremia #Orthostatic hypotension #Abdominal pain # Constipation #Chest pain, ACS less likely #Hypomagnesia, resolved #Normocytic anemia, at baseline Hospital course: Patient is a 83-year-old male with a PMH of atrial fibrillation (on Eliquis), CAD (s/p CABG, with multiple stents), prostate cancer (in remission), HFrEF (25 to 30% with pacemaker), history of DVT, GERD, hyperlipidemia, hypertension, history of [place] presented with acute lightheadedness. EKG independently interpreted displays atrial pacemaker, vent rate 75 bpm, QTc 440 MS CXR independently interpreted displaying cardiomegaly, no evidence of acute pulmonary process Renal ultrasound shows no evidence of hydronephrosis Troponin 0.017, Hgb 12.2, BUN 21, creatinine 1.77, magnesium 1.5. T 97.4 F, [place] 54, BP 105/61, O2 sat 93% on room air Patient was treated with with resolution of his YAMILET, orthostatic hypotension. He was treated with bowel regimen with resolution of his constipation. Patient will follow-up with primary care physician upon discharge. Physical Exam: General: nontoxic, no distress, appears at stated age Derm: warm, dry, intact Head: atraumatic, normocephalic, symmetric Eyes: EOMI, anicteric sclera Mouth: no lip lesion, mucus membranes moist Cardiovascular: S1 S2 reg, no murmur, rubs, or gallops Lungs: CTA bilateral, no rhonchi, no rales, no accessory muscle use Abdominal: soft, non-tender to palpataion, no appreciable organomegaly Extremities: no gross muscle atrophy, no edema, no contractures Neuro: Alert, Oriented, CNII-XII grossly intact, gait normal Psych: well appearing, appropriate affect Plan - Discharge Summary Discharge Rx Participant: No New Discharge Prescriptions: New Acetaminophen Tab [Tylenol] 650 mg PO Q6HR PRN tab PRN Reason: Mild Pain Or Fever > 100.5 Continue Clopidogrel [Plavix] 75 mg PO DAILY Pantoprazole [Protonix] 40 mg PO BID Rosuvastatin Calcium [Crestor] 40 mg PO DAILY Ferrous Sulfate [Iron (65 MG Elemental)] 325 mg PO DAILY Cholecalciferol [Vitamin D3 (25 Mcg = 1000 Iu)] 50 mcg PO DAILY Ranolazine [Ranexa] 500 mg PO BID PARoxetine HCL [Paxil] 20 mg PO DAILY Carboxymethylcellulose Sodium [Refresh Tears] 1 drop BOTH EYES QID PRN PRN Reason: Dry Eye(S) Gabapentin 300 mg PO TID Ezetimibe [Zetia] 10 mg PO DAILY Bimatoprost [Lumigan 0.01% Ophth Soln] 1 drop BOTH EYES HS Potassium Chloride ER [K-Dur 20] 20 meq PO DAILY Apixaban [Eliquis] 2.5 mg PO BID Discontinued carvediloL [Coreg] 6.25 mg PO BID-W/MEALS Furosemide [Lasix] 80 mg PO DAILY Sacubitril/Valsartan [Entresto 24 mg-26 mg Tablet] 1 tab PO BID Discharge Medication List Clopidogrel [Plavix] 75 mg PO DAILY 11/08/16 [History] Pantoprazole [Protonix] 40 mg PO BID 11/08/16 [History] Rosuvastatin Calcium [Crestor] 40 mg PO DAILY 11/08/16 [History] Carboxymethylcellulose Sodium [Refresh Tears] 1 drop BOTH EYES QID PRN 01/19/21 [History] Cholecalciferol [Vitamin D3 (25 Mcg = 1000 Iu)] 50 mcg PO DAILY 01/19/21 [History] Ferrous Sulfate [Iron (65 MG Elemental)] 325 mg PO DAILY 01/19/21 [History] Gabapentin 300 mg PO TID 10/20/21 [History] Ezetimibe [Zetia] 10 mg PO DAILY 05/10/24 [History] Ranolazine [Ranexa] 500 mg PO BID 05/10/24 [History] Bimatoprost [Lumigan 0.01% Ophth Soln] 1 drop BOTH EYES HS 05/11/24 [History] PARoxetine HCL [Paxil] 20 mg PO DAILY 05/11/24 [History] Apixaban [Eliquis] 2.5 mg PO BID 08/30/24 [History] Potassium Chloride ER [K-Dur 20] 20 meq PO DAILY 08/30/24 [History] Acetaminophen Tab [Tylenol] 650 mg PO Q6HR PRN tab 09/01/24 [Rx] Follow up Appointment(s)/Referral(s): Macarena Gallegos, PAC [REFERRING] - 1-2 days Patient Instructions/Handouts: Hypotension (DC) Activity/Diet/Wound Care/Special Instructions: Would recommend PCP assess memory issues as expressed by Abyb Luz, some suggestions if they think it would be of benefit: -MOCA -MMSE -Auditory Screening -Depression Questionaire - PSQ-9 -Neurology Evaluation/Referral Discharge Disposition: HOME SELF-CARE
== END 2024-09-01 14:15 | disposition home or self-care (01) ==
LOC: EC 12:59 → 6NMEDSUR 15:10
PROVIDERS: ADMIT Student in an Organized Health Care Education/Training Program; ATTEND Student in an Organized Health Care Education/Training Program
DX: I95.1 Orthostatic hypotension (principal); N17.9 Acute kidney failure, unspecified; E86.1 Hypovolemia; E86.0 Dehydration; E87.1 Hypo-osmolality and hyponatremia; E83.42 Hypomagnesemia; I48.91 Unspecified atrial fibrillation; I11.0 Hypertensive heart disease with heart failure; I50.22 Chronic systolic (congestive) heart failure; I25.10 Atherosclerotic heart disease of native coronary artery without angina pectoris; K21.9 Gastro-esophageal reflux disease without esophagitis; E78.5 Hyperlipidemia, unspecified; I25.2 Old myocardial infarction; K59.00 Constipation, unspecified; R41.3 Other amnesia; D64.9 Anemia, unspecified; R07.9 Chest pain, unspecified; Z79.01 Long term (current) use of anticoagulants; Z79.02 Long term (current) use of antithrombotics/antiplatelets; Z79.899 Other long term (current) drug therapy; Z91.041 Radiographic dye allergy status; Z88.5 Allergy status to narcotic agent; Z88.0 Allergy status to penicillin; Z88.8 Allergy status to other drugs, medicaments and biological substances; Z91.048 Other nonmedicinal substance allergy status; Z95.5 Presence of coronary angioplasty implant and graft; Z95.1 Presence of aortocoronary bypass graft; Z87.891 Personal history of nicotine dependence; Z86.718 Personal history of other venous thrombosis and embolism; Z85.46 Personal history of malignant neoplasm of prostate
CPT/HCPCS: 96361 ×3; 96365; 96366; 96375; 99285; 36415; 93005; 80053 ×2; 80048; 84443; 83605; 83735 ×2; 84484; 85025 ×2; 85027; 85610; 85730; 71046; 74019; 76770; G0378 ×3; J3475; J2470

== ENCOUNTER → 2025-02-13 | Outpatient (CLI) | payer OTHER ==
--- NOTE | 2025-02-13 13:18 | US ---
EXAMINATION TYPE: US carotid duplex BILAT DATE OF EXAM: 02/13/2025 COMPARISON: 03/12/2022 CLINICAL INDICATION: Male, 84 years old with history of R42 DIZZY GIDDY; Additional History: R42* Dizziness TECHNIQUE: Grayscale, color Doppler and spectral Doppler evaluation of the bilateral carotid systems and vertebral arteries. Indirect Doppler criteria was utilized. FINDINGS: EXAM MEASUREMENTS: RIGHT: Peak Systolic Velocity (PSV) cm/sec ----- Right CCA: 98.7 ----- Right ICA: 88.9 ----- Right ECA: 105 ICA/CCA ratio: 0.9 RIGHT: End Diastole cm/sec ----- Right CCA: 23.4 ----- Right ICA: 27.2 ----- Right ECA: 14.9 LEFT: Peak Systolic Velocity (PSV) cm/sec ----- Left CCA: 91.4 ----- Left ICA: 79.9 ----- Left ECA: 96.4 ICA/CCA ratio: 0.9 LEFT: End Diastole cm/sec ----- Left CCA: 20.1 ----- Left ICA: 23.4 ----- Left ECA: 11.5 VERTEBRALS (direction of flow): Right Vertebral: Antegrade Left Vertebral: Antegrade Rhythm: Normal HADOOP DEVELOPER NOTES: No elevated velocities or significant stenosis seen, minimal plaque seen within bilat bulbs Color Doppler imaging shows patency with blood flow throughout the carotid artery. Spectral waveforms are within normal limits. IMPRESSION: Right: No hemodynamically significant stenosis. Left: No hemodynamically significant stenosis. Criteria for Assigning % of Stenosis / Diameter reduction (Estimation based on the indirect measurements of the internal carotid artery velocities (ICA PSV). 1. Normal (no stenosis)=ICA PSV < 180 cm/s: ratio < 2.0: ICA EDV<40 cm/s. 2. Less than 50% stenosis=ICA PSV < 180 cm/s: ratio < 2.0: ICA EDV<40 cm/s. 3. 50 to 69% stenosis=ICA PSV of 180 to 230 cm/s: ration 2.0 ? 4.0: ICA EDV 40-100 cm/s. PSV 125-180 cm/sec and ICA/CCA PSV Ratio ? 2.0 is also consistent with 50-69% stenosis 4. Greater than 70% stenosis to near occlusion= ICA PSV > 230 cm/s: ratio > 4.0: ICA EDV > 100 cm/s. 5. Near occlusion= ICA PSV velocities may be low or undetectable: variable ratio and ICA EDV. 6. Total occlusion=unable to detect flow. [facility], , 02/13/2025 1:16 PM
== END | disposition home or self-care (01) ==
LOC: RADUSWWP 12:08
PROVIDERS: ATTEND Family Medicine
DX: R42 Dizziness and giddiness (principal)
CPT/HCPCS: 93880